=== PATIENT | female | born 1945 | race African-American/Black ===

== ENCOUNTER 2016-12-10 09:30 | Inpatient (IN) | payer OTHER, BC ==
[2016-11-28 11:22] VITALS: BMI 29.7
[2016-12-10 15:40] LABS: MCH 30.3 pg (25.7-33.7); MEAN PLT VOLUME 9.2 fl (7.5-11.1); PLATELET COUNT 218 K/MM3 (134-434); RDW 13.5 % (11.6-15.6); WHITE BLOOD COUNT 4.4 K/mm3 (4.0-10.0)
[2016-12-10 16:04] LABS: ALBUMIN 4.2 g/dl (3.4-5.0); BILIRUBIN,TOTAL 0.4 mg/dL (0.2-1.0); CALCIUM 10.1 mg/dL (8.5-10.1); COCKROFT - GAULT 47.1495; CREATININE 1.4 mg/dL (0.55-1.02); TOT PROT 7.1 g/dl (6.4-8.2)
[2016-12-10 16:25] LABS: INR 1.55 (0.82-1.09); PROTHROMBIN TIME (PATIENT) 17.2 SEC (9.98-11.88)
[2016-12-10 16:28] LABS: ACTIVATED PTT 37.3 SECONDS (26.9-34.4)
[2016-12-10] MEDS ORDERED: HEPARIN NA (PORCINE) 5,000 UNITS/ML 1ML VIAL IVPUSH PRN ×2 (17:19)
[2016-12-10] MEDS: HEPARIN INFUSION - 500 ML IVPB SCH (17:41)
[2016-12-10] MEDS: MIRTAZAPINE 15 MG TABLET (FP) PO SCH (21:06)
[2016-12-10] MEDS: ACETAMINOPHEN 325 MG TABLET (FP) PO PRN (21:08)
[2016-12-11 07:40] LABS: BASOPHIL 2.5 % (0-2.0); EOSINOPHIL 5.8 % (0-4.5); MCH 31.3 pg (25.7-33.7); MCHC 33.8 g/dl (32.0-36.0); MEAN CELL VOLUME 92.4 fl (80-96); NEUTROPHILS 39.6 % (42.8-82.8); PLATELET COUNT 189 K/MM3 (134-434); RDW 13.9 % (11.6-15.6); WHITE BLOOD COUNT 3.4 K/mm3 (4.0-10.0)
[2016-12-11 07:59] LABS: INR 1.39 (0.82-1.09); PROTHROMBIN TIME (PATIENT) 15.4 SEC (9.98-11.88)
--- NOTE | 2016-12-11 08:51 | HP ---
Admitting History and Physical - Primary Care Physician PCP: Mary York - Past Medical History Cardiovascular: Yes: HTN, Other (valve replacements on coumadin and ASA) ...: No Psych: Yes: Other (insomnia) Rheumatology: Yes: Gout - Past Surgical History Past Surgical History: Yes: Hysterectomy (COLTEN at 31 benign), Joint Replacement ( Bilateral hip 1998), Laminectomy (1984) - Advance Directives Advance Directives: Yes: Health Care Proxy - Smoking History Smoking history: Former smoker Have you smoked in the past 12 months: No Aproximately how many cigarettes per day: 0 - Alcohol/Substance Use Hx Alcohol Use: No <Sheila Mcdowell - Last Filed: 12/11/16 08:51> - Admission History of Present Illness: The patient is a 71 yo F with PMHx of AVR(metallic in 1995), HTN, Afib, Spinal stenosis, R knee osteoarthritis, Gout, Depression and COPD who is admitted electively for R total knee replacement which is scheduled tomorrow by Dr. Davison. Patient is currently on heparin drip and off Coumadin. Patients PSHx significant for partial hysterectomy and Laminectomy. At present, patient denies any chest pain or SOB. Denies any abdominal pain or urinary/bowel trouble. Meds reviewed Allergies: penicillin History Source: Patient Limitations to Obtaining History: No Limitations <Barbara Dumont - Last Filed: 12/11/16 10:39> Home Medications <Sheila Mcdowell - Last Filed: 12/11/16 08:51> <Barbara Dumont - Last Filed: 12/11/16 10:39> - Allergies Allergies/Adverse Reactions: Allergies Allergy/AdvReac Type Severity Reaction Status Date / Time Penicillins Allergy Severe ITCHING Verified 11/28/16 10:57 AND RASH - Home Medications Home Medications: Ambulatory Orders Aspirin [Aspirin EC] 81 mg PO DAILY #0 06/11/13 Furosemide [Lasix -] 40 mg PO DAILY 06/11/13 Nebivolol HCl [Bystolic] 10 mg PO DAILY #0 06/11/13 Warfarin Sodium 5 mg PO HS 06/11/13 Allopurinol [Zyloprim -] 100 mg PO DAILY 12/15/15 Cholecalciferol (Vitamin D3) [Vitamin D3] 1,000 mg PO DAILY 12/15/15 Mirtazapine [Remeron -] 15 mg PO HS 12/15/15 Multivit with Iron-Minerals [Compete] 1 each PO DAILY 12/15/15 Spironolactone [Aldactone] 25 mg PO DAILY 12/15/15 Ferrous Sulfate [Feosol] 325 mg PO BID 11/28/16 Tramadol HCl [Ultram] 50 mg PO BID PRN 11/28/16 Family Disease History - Family Disease History Family History: Unremarkable <Barbara Dumont - Last Filed: 12/11/16 10:39> Review of Systems Findings/Remarks: See HPI <Barbara Dumont - Last Filed: 12/11/16 10:39> Physical Examination Vital Signs: Vital Signs Temperature 97.5 F L 12/11/16 06:10 Pulse Rate 60 12/11/16 06:10 Respiratory Rate 20 12/11/16 06:10 Blood Pressure 137/70 12/11/16 06:10 O2 Sat by Pulse Oximetry (%) 98 12/10/16 20:31 Labs: CBC, BMP 12/11/16 05:35 <Sheila Mcdowell - Last Filed: 12/11/16 08:51> Vital Signs: Vital Signs Temperature 97.5 F L 12/11/16 07:35 Pulse Rate 56 L 12/11/16 07:35 Respiratory Rate 18 12/11/16 07:35 Blood Pressure 130/64 12/11/16 07:35 O2 Sat by Pulse Oximetry (%) 98 12/10/16 20:31 Constitutional: Yes: No Distress Eyes: Yes: Conjunctiva Clear Neck: Yes: Supple, Other (No Carotid bruit.) Cardiovascular: Yes: Pulse Irregular Respiratory: Yes: CTA Bilaterally Gastrointestinal: Yes: Soft Edema: No Neurological: Yes: Alert Labs: CBC, BMP 12/11/16 05:35 12/11/16 05:35 <Barbara Dumont - Last Filed: 12/11/16 10:39> Imaging - Results EKG: Report Reviewed <Barbara Dumont - Last Filed: 12/11/16 10:39> Problem List - Problems (1) Osteoarthritis of right knee Code(s): M17.11 - UNILATERAL PRIMARY OSTEOARTHRITIS, RIGHT KNEE (2) S/P aortic valve replacement with metallic valve Code(s): Z95.4 - PRESENCE OF OTHER HEART-VALVE REPLACEMENT (3) Atrial fibrillation Code(s): I48.91 - UNSPECIFIED ATRIAL FIBRILLATION (4) HTN (hypertension) Code(s): I10 - ESSENTIAL (PRIMARY) HYPERTENSION (5) COPD (chronic obstructive pulmonary disease) Code(s): J44.9 - CHRONIC OBSTRUCTIVE PULMONARY DISEASE, UNSPECIFIED <Barbara Dumont - Last Filed: 12/11/16 10:39> Assessment/Plan Clinically stable. Meds reviewed. Scheduled for OR tomorrow. Cardiology to follow. Will check UC and CXR. Discussed with Dr. York-- per Dr. Adan's conversation with anesthesiologist last week Dr. Carter--INR to be checked midnight tonight, if less than 1.4, heparin drip to be stopped at 1 AM. If INR is more than 1.4, heparin drip to continue and procedure needs to be postponed, nurse made aware Will follow. Documentation prepared by Barbara Dumont, acting as a medical affairs specialist for Sheila Mcdowell MD. <Barbara Dumont - Last Filed: 12/11/16 10:39>
--- NOTE | 2016-12-11 09:40 | PN ---
Progress Note (short form) - Note Progress Note: Ortho Pt seen and examined- for right tkr tomorrow PE- + swelling, + ttp, dec rom calf soft, nt, nvi a/p OR tomorrow for right tkr NPO after midnight Hold heparin after 4 am tomorrow All questions answered d/w Dr. Davison
[2016-12-11 09:49] LABS: ALBUMIN 3.5 g/dl (3.4-5.0); COCKROFT - GAULT 55.675; CREATININE 1.2 mg/dL (0.55-1.02)
[2016-12-11 09:51] LABS: BILIRUBIN,TOTAL 0.4 mg/dL (0.2-1.0); TOT PROT 6.2 g/dl (6.4-8.2)
[2016-12-11] MEDS ORDERED: ASPIRIN COATED 81 MG TABLET.EC PO SCH (10:00)
--- NOTE | 2016-12-11 10:19 | PN ---
Progress Note (short form) - Note Progress Note: per my conversation with anesthesiologist last week Dr. Carter--INR to be checked midnight tonight, if less than 1.4, heparin drip to be stopped at 1 AM. If INR is more than 1.4, heparin drip to continue and procedure needs to be postponed, nurse made aware
[2016-12-11] MEDS ORDERED: PT OWN MED DRAWER 7, Y5N ONE (10:41)
[2016-12-11] MEDS: ALLOPURINOL 100 MG TABLET (FP) PO SCH (10:43)
[2016-12-11] MEDS: NEBIVOLOL 10 MG TABLET (FP) PO SCH (10:43)
[2016-12-11] MEDS: FUROSEMIDE 40 MG TABLET (FP) PO SCH (10:43)
[2016-12-11] MEDS: SPIRONOLACTONE 25 MG TABLET (FP) PO SCH (10:43)
[2016-12-11] MEDS: ASPIRIN COATED 81 MG TABLET.EC PO SCH (10:43)
[2016-12-11] MEDS: HEPARIN INFUSION - 500 ML IVPB SCH ×2 (12:19→20:20)
[2016-12-11 12:37] LABS: URINE APPEARANCE CLEAR; URINE BILIRUBIN NEGATIVE (NEGATIVE); URINE BLOOD NEGATIVE (NEGATIVE); URINE COLOR STRAW; URINE GLUCOSE (UA) NEGATIVE (NEGATIVE); URINE KETONE NEGATIVE (NEGATIVE); URINE NITRITE NEGATIVE (NEGATIVE); URINE PROTEIN NEGATIVE (NEGATIVE); URINE UROBILINOGEN NEGATIVE E.U./dl (0.2-1.0)
[2016-12-11 13:02] LABS: URINE LEUK ESTERASE TRACE (NEGATIVE)
--- NOTE | 2016-12-11 13:22 | CON.CARD ---
Consult Consult Specialty:: Cardiology Referred by:: Sheila Mcdowell MD Reason for Consultation:: Pre-operative cardiovascular evaluation - History of Present Illness Chief Complaint: Right knee pain History of Present Illness: The patient is a 71 yo F with PMHx of AVR, MVR (metallic in 1995), HTN, permanent Afib sss s/p PPM, diastolic dysfunction, cerebrovascular disease, spinal stenosis, R knee osteoarthritis, Gout, Depression and COPD admitted electively for R total knee replacement which is scheduled tomorrow by Dr. Davison. Patient is currently on heparin drip and off Coumadin, INR subtherapeutic. She denies chest pain, dyspnea, near or true syncope, palpitations, orthopnea, PND or LE edema. Patients PSHx significant for partial hysterectomy and Laminectomy. Meds reviewed Allergies: penicillin - History Source History Provided By: Patient Limitations to Obtaining History: No Limitations - Past Medical History Cardio/Vascular: Yes: AFIB, HTN, Other (valve replacements on coumadin and ASA) ...: No Psych: Yes: Other (insomnia) Rheumatology: Yes: Gout - Past Surgical History Past Surgical History: Yes: Hysterectomy (COLTEN at 31 benign), Joint Replacement ( Bilateral hip 1998), Laminectomy (1984), Valve Replacement - Alcohol/Substance Use Hx Alcohol Use: No - Smoking History Smoking history: Former smoker Have you smoked in the past 12 months: No Aproximately how many cigarettes per day: 0 Home Medications - Allergies Allergies/Adverse Reactions: Allergies Allergy/AdvReac Type Severity Reaction Status Date / Time Penicillins Allergy Severe ITCHING Verified 11/28/16 10:57 AND RASH - Home Medications Home Medications: Ambulatory Orders Aspirin [Aspirin EC] 81 mg PO DAILY #0 06/11/13 Furosemide [Lasix -] 40 mg PO DAILY 06/11/13 Nebivolol HCl [Bystolic] 10 mg PO DAILY #0 06/11/13 Warfarin Sodium 5 mg PO HS 06/11/13 Allopurinol [Zyloprim -] 100 mg PO DAILY 12/15/15 Cholecalciferol (Vitamin D3) [Vitamin D3] 1,000 mg PO DAILY 12/15/15 Mirtazapine [Remeron -] 15 mg PO HS 12/15/15 Multivit with Iron-Minerals [Compete] 1 each PO DAILY 12/15/15 Spironolactone [Aldactone] 25 mg PO DAILY 12/15/15 Ferrous Sulfate [Feosol] 325 mg PO BID 11/28/16 Tramadol HCl [Ultram] 50 mg PO BID PRN 11/28/16 Review of Systems - Review of Systems Musculoskeletal: reports: Joint Pain (Right knee pain) Vital Signs: Vital Signs Temperature 97.5 F L 12/11/16 07:35 Pulse Rate 56 L 12/11/16 07:35 Respiratory Rate 18 12/11/16 07:35 Blood Pressure 130/64 12/11/16 07:35 O2 Sat by Pulse Oximetry (%) 98 12/11/16 09:00 Constitutional: Yes: No Distress, Calm Neck: Yes: Supple Respiratory: Yes: Regular, CTA Bilaterally Gastrointestinal: Yes: Normal Bowel Sounds, Soft Cardiovascular: Yes: Regular Rate and Rhythm, Other (Camas mechanical valve sounds) JVD: No Carotid Bruit: No Heart Sounds: Yes: S1, S2 Murmur: Yes: Systolic Murmur, Grade 1 Edema: No - Other Data Labs, Other Data: CBC, BMP 12/11/16 05:35 12/11/16 05:35 INR, PTT INR 1.39 (0.82-1.09) H 12/11/16 05:35 Imaging - Results Chest X-ray: Pending Problem List - Problems (1) Atrial fibrillation Code(s): I48.91 - UNSPECIFIED ATRIAL FIBRILLATION Qualifiers: Atrial fibrillation type: permanent Qualified Code(s): I48.2 - Chronic atrial fibrillation (2) HTN (hypertension) Code(s): I10 - ESSENTIAL (PRIMARY) HYPERTENSION Qualifiers: Hypertension type: essential hypertension Qualified Code(s): I10 - Essential (primary) hypertension (3) Osteoarthritis of right knee Code(s): M17.11 - UNILATERAL PRIMARY OSTEOARTHRITIS, RIGHT KNEE Qualifiers: Osteoarthritis type: primary Qualified Code(s): M17.11 - Unilateral primary osteoarthritis, right knee (4) S/P aortic valve replacement with metallic valve Code(s): Z95.4 - PRESENCE OF OTHER HEART-VALVE REPLACEMENT (5) Pre-operative cardiovascular examination Code(s): Z01.810 - ENCOUNTER FOR PREPROCEDURAL CARDIOVASCULAR EXAMINATION (6) Diastolic dysfunction without heart failure Code(s): I51.9 - HEART DISEASE, UNSPECIFIED (7) Cerebrovascular disease Code(s): I67.9 - CEREBROVASCULAR DISEASE, UNSPECIFIED (8) S/P mitral valve replacement with metallic valve Code(s): Z95.4 - PRESENCE OF OTHER HEART-VALVE REPLACEMENT (9) Rheumatic heart disease Code(s): I09.9 - RHEUMATIC HEART DISEASE, UNSPECIFIED (10) Cardiac pacemaker in situ Code(s): Z95.0 - PRESENCE OF CARDIAC PACEMAKER (11) Chronic kidney disease (CKD) Code(s): N18.9 - CHRONIC KIDNEY DISEASE, UNSPECIFIED Qualifiers: Chronic kidney disease stage: stage 3 (moderate) Qualified Code(s): N18.3 - Chronic kidney disease, stage 3 (moderate) Assessment/Plan 11/16/2016 Echo: Normal LV size and fxn, mild ALICIA, [facility] [employer] mech AVR, mild-mod TR RVSP 51 mmHg 11/21/2016 Adenosine MIBI: No ischemia, LVEF 77% 1. Pre-operative cardiovascular evaluation prior to right TKR 2. RHD s/p Mech MVR, AVR with subtherapeutic INR 3. Permanent afib sss s/p PPM 4. Diastolic dysfunction 5. Hyperlipidemia 6. Cerebrovascular disease with h/o TIA P:1. Resume ASA, heparin->coumadin per INR 3.0-3.5 as soon as post-op hemostasis has been achieved 2. Continue Bystolic 10 qd, Aldactone 25 qd, Cozaar 100 qd, hold Lasix 40 qd pre -op 3. Thank you for consultative opportunity
[2016-12-11 13:46] LABS: URINE WBC 2 /hpf (3-5)
[2016-12-11] MEDS: ACETAMINOPHEN 325 MG TABLET (FP) PO PRN (14:20)
[2016-12-11] MEDS: LOSARTAN POTASSIUM 50 MG TABLET (FP) PO SCH (15:04)
[2016-12-11] MEDS: MIRTAZAPINE 15 MG TABLET (FP) PO SCH (21:17)
[2016-12-12 00:36] LABS: INR 1.26 (0.82-1.09); PROTHROMBIN TIME (PATIENT) 13.9 SEC (9.98-11.88)
[2016-12-12 07:09] LABS: MCHC 33.2 g/dl (32.0-36.0); MEAN CELL VOLUME 93.4 fl (80-96); MEAN PLT VOLUME 8.9 fl (7.5-11.1); PLATELET COUNT 230 K/MM3 (134-434); RDW 13.9 % (11.6-15.6); WHITE BLOOD COUNT 3.7 K/mm3 (4.0-10.0)
[2016-12-12] MEDS: SPIRONOLACTONE 25 MG TABLET (FP) PO SCH (09:36)
[2016-12-12] MEDS: NEBIVOLOL 10 MG TABLET (FP) PO SCH (09:36)
[2016-12-12] MEDS: ASPIRIN COATED 81 MG TABLET.EC PO SCH (09:37)
[2016-12-12] MEDS: ALLOPURINOL 100 MG TABLET (FP) PO SCH (09:37)
[2016-12-12] MEDS: FUROSEMIDE 40 MG TABLET (FP) PO SCH (09:37)
[2016-12-12] MEDS: LOSARTAN POTASSIUM 50 MG TABLET (FP) PO SCH (09:37)
[2016-12-12] MEDS ORDERED: ROPIVACAINE HCL 0.5% 30ML VIAL ONE (09:53)
[2016-12-12] MEDS ORDERED: DEXAMETHASONE SOD PHOSPHATE/PF 10 MG/ML SDV ONE (09:53)
[2016-12-12] MEDS ORDERED: SODIUM CHLORIDE 0.9% P/F 10 ML VIAL IJ ONE (09:56)
[2016-12-12] MEDS ORDERED: MIDAZOLAM HCL 2 MG/2 ML SINGLE DOSE VIAL ONE ×2 (09:56)
[2016-12-12] MEDS ORDERED: ceFAZolin SODIUM 1 GM VIAL ONE ×2 (10:56→11:12)
[2016-12-12] MEDS ORDERED: ceFAZolin SODIUM 1 GM VIAL IVPB ONE ×2 (10:58→12:25)
[2016-12-12] MEDS ORDERED: TRANEXAMIC ACID 1000 MG/10 ML VIAL IVPB ONE ×2 (11:10→12:25)
[2016-12-12] MEDS ORDERED: TRANEXAMIC ACID 1000 MG/10 ML VIAL ONE ×2 (11:11→11:24)
[2016-12-12] MEDS ORDERED: ONDANSETRON 4 MG/2 ML VIAL IVPUSH PRN ×2 (11:22→13:01)
[2016-12-12] MEDS ORDERED: LACTATED RINGERS SOLUTION 1,000 ML IV SCH (11:30)
[2016-12-12] MEDS ORDERED: VANCOMYCIN 1,000 MG VIAL (RESTRICTED TO ID ONLY) ONE (11:40)
[2016-12-12] MEDS ORDERED: VANCOMYCIN 1,000 MG VIAL (RESTRICTED TO ID ONLY) IVPB ONE (12:00)
--- NOTE | 2016-12-12 12:36 | OP ---
Operative Note - Note: Operative Date: 12/12/16 ([facility]) Pre-Operative Diagnosis: right knee djd Operation: right tkr Post-Operative Diagnosis: Same as Pre-op Surgeon: Everett Davison Padded Box Sewer: Kervin Chu Anesthesiologist/HUNTER GUIDE: Tammie Mujica Anesthesia: Spinal, Local Specimens Removed: bone fragments Estimated Blood Loss (mls): 50 (tourniquet) Operative Report Dictated: Yes
[2016-12-12] MEDS ORDERED: HEPARIN NA (PORCINE) 5,000 UNITS/ML 1ML VIAL IVPUSH PRN ×6 (13:01→19:00)
--- NOTE | 2016-12-12 13:21 | PN ---
Progress Note, Physician Chief Complaint: Pt examined by me in Recovery room-- s/p Right TKR She feels fine No distress - Current Medication List Current Medications: Active Medications Acetaminophen (Tylenol -) 650 mg PO Q6H PRN PRN Reason: FEVER OR PAIN Allopurinol (Zyloprim -) 100 mg PO DAILY [facility] Aspirin (Ecotrin -) 81 mg PO DAILY [facility] Fentanyl (Sublimaze Injection -) 25 mcg IVPUSH [id number] PRN PRN Reason: PAIN Stop: 12/15/16 11:23 Furosemide (Lasix -) 40 mg PO DAILY [facility] Heparin Sodium (Porcine) (Heparin -) 1,000 unit IVPUSH PRN PRN PRN Reason: Heparin Heparin Sodium (Porcine) (Heparin -) 5,000 unit IVPUSH PRN PRN PRN Reason: Heparin Cefazolin Sodium 2 gm/ (Dextrose) 50 mls @ 200 mls/hr IVPB Q8H-IV MELISSA Stop: 12/13/16 02:14 Heparin Sodium/Dextrose (Heparin Infusion -) 500 mls @ 20 mls/hr IVPB TITR MELISSA ; 1,000 UNITS/HR PRN Reason: Protocol Lactated Ringer's (Lactated Ringers Solution) 1,000 mls @ 75 mls/hr IV ASDIR MELISSA Losartan Potassium (Cozaar -) 50 mg PO DAILY MELISSA Mirtazapine (Remeron -) 15 mg PO HS MELISSA Nebivolol (Bystolic -) 10 mg PO DAILY MELISSA Ondansetron HCl (Zofran Injection) 4 mg IVPUSH Q6H PRN PRN Reason: NAUSEA AND/OR VOMITING Stop: 12/12/16 17:23 Pantoprazole Sodium (Protonix -) 40 mg PO DAILY [facility] Spironolactone (Aldactone -) 25 mg PO DAILY [facility] - Objective Vital Signs: Vital Signs Temperature 98.3 F 12/12/16 06:13 Pulse Rate 60 12/12/16 06:13 Respiratory Rate 21 12/12/16 06:13 Blood Pressure 129/60 12/12/16 06:13 O2 Sat by Pulse Oximetry (%) 98 12/11/16 21:00 Constitutional: Yes: No Distress, Calm Cardiovascular: Yes: Regular Rate and Rhythm, Murmur Respiratory: Yes: CTA Bilaterally Gastrointestinal: Yes: Normal Bowel Sounds, Soft. No: Distention, Tenderness Extremities: Yes: Other (right leg cast) Edema: No Labs: CBC, BMP 12/12/16 06:05 12/11/16 05:35 INR, PTT INR 1.26 (0.82-1.09) H 12/12/16 00:01 Problem List - Problems (1) COPD (chronic obstructive pulmonary disease) Code(s): J44.9 - CHRONIC OBSTRUCTIVE PULMONARY DISEASE, UNSPECIFIED Qualifiers : COPD type: unspecified COPD Qualified Code(s): J44.9 - Chronic obstructive pulmonary disease, unspecified (2) Diastolic dysfunction without heart failure Code(s): I51.9 - HEART DISEASE, UNSPECIFIED (3) HTN (hypertension) Code(s): I10 - ESSENTIAL (PRIMARY) HYPERTENSION Qualifiers: Hypertension type: essential hypertension Qualified Code(s): I10 - Essential (primary) hypertension (4) Osteoarthritis of right knee Code(s): M17.11 - UNILATERAL PRIMARY OSTEOARTHRITIS, RIGHT KNEE Qualifiers: Osteoarthritis type: primary Qualified Code(s): M17.11 - Unilateral primary osteoarthritis, right knee (5) S/P aortic valve replacement with metallic valve Code(s): Z95.4 - PRESENCE OF OTHER HEART-VALVE REPLACEMENT (6) Total knee replacement status Code(s): Z96.659 - PRESENCE OF UNSPECIFIED ARTIFICIAL KNEE JOINT Qualifiers: Laterality: right Qualified Code(s): Z96.651 - Presence of right artificial knee joint Assessment/Plan PLAN As per Ortho team, ok to start Heparin infusion and will also start Coumadin tonight check CBC in AM. Monitor INR pain control incentive spirometry Cefazolin post surgery continue with meds DVT prophylaxis-- Heparin +Coumadin may need to consider rehab on discharge - pt lives alone
[2016-12-12] MEDS: LACTATED RINGERS SOLUTION 1,000 ML IV SCH (14:00)
[2016-12-12] MEDS: HYDROmorphone HCL CARPU-JECT 1 MG/1 ML DISP.SYRIN IVPUSH PRN ×2 (16:54→21:08)
[2016-12-12] MEDS ORDERED: CEFAZOLIN 2 GM in DEXTROSE 5%-WATER - 50 ML IVPB SCH (18:00)
[2016-12-12] MEDS: oxyCODONE HCL 5 MG TABLET PO PRN (18:08)
[2016-12-12] MEDS: CEFAZOLIN 2 GM/D5W 50 ML IVPB SCH (18:08)
[2016-12-12] MEDS: WARFARIN NA 5 MG TABLET (UD) PO SCH (18:08)
[2016-12-12] MEDS: HEPARIN INFUSION - 500 ML IVPB SCH ×2 (18:52→21:09)
[2016-12-12] MEDS ORDERED: HEPARIN INFUSION - 500 ML IVPB SCH (19:00)
[2016-12-12] MEDS: MIRTAZAPINE 15 MG TABLET (FP) PO SCH (21:08)
[2016-12-13] MEDS: HYDROmorphone HCL CARPU-JECT 1 MG/1 ML DISP.SYRIN IVPUSH PRN ×2 (01:19→05:44)
[2016-12-13] MEDS: LACTATED RINGERS SOLUTION 1,000 ML IV SCH (02:49)
[2016-12-13] MEDS: CEFAZOLIN 2 GM/D5W 50 ML IVPB SCH (03:07)
[2016-12-13] MEDS: HEPARIN INFUSION - 500 ML IVPB SCH ×2 (03:19→18:22)
[2016-12-13 07:27] LABS: MCH 31.3 pg (25.7-33.7); MCHC 33.7 g/dl (32.0-36.0); MEAN CELL VOLUME 92.7 fl (80-96); MEAN PLT VOLUME 9.1 fl (7.5-11.1); PLATELET COUNT 196 K/MM3 (134-434); RDW 13.6 % (11.6-15.6); WHITE BLOOD COUNT 9.8 K/mm3 (4.0-10.0)
[2016-12-13 07:35] LABS: CALCIUM 9.5 mg/dL (8.5-10.1)
[2016-12-13 07:37] LABS: COCKROFT - GAULT 66.1045
[2016-12-13 07:57] LABS: INR 1.2 (0.82-1.09); PROTHROMBIN TIME (PATIENT) 13.2 SEC (9.98-11.88)
--- NOTE | 2016-12-13 08:44 | PN ---
Progress Note (short form) - Note Progress Note: Anesthesia POD#1 S/P Right Total Knee Replacement under spinal anesthesia and Adductor canal block,tibial nerve block Patient did well during & after the procedure. pain started last evening. Taking narcotics PO and IV. Not well controlled. No N/V,VSS. A/P i would add iv tylenol for pain. Tammie Mujica MD.
[2016-12-13] MEDS ORDERED: ACETAMINOPHEN 1000 MG/100 ML VIAL (NON FORMULARY) IVPB PRN (08:45)
[2016-12-13] MEDS ORDERED: PT OWN MED DRAWER 7, Y5N ONE (09:01)
[2016-12-13] MEDS: oxyCODONE HCL 5 MG TABLET PO PRN ×3 (09:05→21:31)
[2016-12-13] MEDS: ASPIRIN COATED 81 MG TABLET.EC PO SCH (09:06)
[2016-12-13] MEDS: ALLOPURINOL 100 MG TABLET (FP) PO SCH (09:06)
[2016-12-13] MEDS: SPIRONOLACTONE 25 MG TABLET (FP) PO SCH (09:06)
[2016-12-13] MEDS: ACETAMINOPHEN 325 MG TABLET (FP) PO PRN ×3 (09:06→21:31)
[2016-12-13] MEDS: FUROSEMIDE 40 MG TABLET (FP) PO SCH (09:07)
[2016-12-13] MEDS: PANTOPRAZOLE 40 MG TABLET (FP) PO SCH (09:07)
[2016-12-13] MEDS: NEBIVOLOL 10 MG TABLET (FP) PO SCH (09:07)
[2016-12-13] MEDS ORDERED: HYDROmorphone HCL CARPU-JECT 1 MG/1 ML DISP.SYRIN IVPB PRN (09:16)
--- NOTE | 2016-12-13 09:19 | PN ---
Progress Note, Physician Chief Complaint: s/p Rt TKR POD #1 Has pain examined pt while doing Physical therapy has a productive cough-- nasal congestion no SOB - Current Medication List Current Medications: Active Medications Acetaminophen (Tylenol -) 650 mg PO Q6H PRN PRN Reason: FEVER OR PAIN Acetaminophen (Ofirmev Injection -) 1,000 mg IVPB Q6H PRN PRN Reason: FEVER OR PAIN Stop: 12/14/16 02:46 Allopurinol (Zyloprim -) 100 mg PO DAILY [facility] Last Admin: 12/13/16 09:06 Dose: 100 mg Aspirin (Ecotrin -) 81 mg PO DAILY [facility] Last Admin: 12/13/16 09:06 Dose: 81 mg Furosemide (Lasix -) 40 mg PO DAILY [facility] Last Admin: 12/13/16 09:07 Dose: 40 mg Heparin Sodium (Porcine) (Heparin -) 5,000 unit IVPUSH PRN PRN Heparin Sodium (Porcine) (Heparin -) 1,000 unit IVPUSH PRN PRN Hydromorphone HCl (Dilaudid Injection -) 1 mg IVPB Q4H PRN PRN Reason: PAIN LEVEL 6-10 Lactated Ringer's (Lactated Ringers Solution) 1,000 mls @ 75 mls/hr IV ASDIR [facility] Last Admin: 12/13/16 02:49 Dose: 75 mls/hr Heparin Sodium/Dextrose (Heparin Infusion -) 500 mls @ 17 mls/hr IVPB TITR MELISSA ; 850 UNITS/HR PRN Reason: Protocol Last Admin: 12/13/16 03:19 Dose: 17 mls/hr Losartan Potassium (Cozaar -) 50 mg PO DAILY [facility] Last Admin: 12/13/16 09:06 Dose: 50 mg Mirtazapine (Remeron -) 15 mg PO HS [facility] Last Admin: 12/12/16 21:08 Dose: 15 mg Nebivolol (Bystolic -) 10 mg PO DAILY [facility] Last Admin: 12/13/16 09:07 Dose: 10 mg Oxycodone HCl (Roxicodone -) 5 mg PO Q6H PRN PRN Reason: PAIN LEVEL 6-10 Last Admin: 12/13/16 09:05 Dose: 5 mg Pantoprazole Sodium (Protonix -) 40 mg PO DAILY [facility] Last Admin: 12/13/16 09:07 Dose: 40 mg Spironolactone (Aldactone -) 25 mg PO DAILY [facility] Last Admin: 12/13/16 09:06 Dose: 25 mg Warfarin Sodium (Coumadin -) 5 mg PO DAILY@1800 [facility] Last Admin: 12/12/16 18:08 Dose: 5 mg - Objective Vital Signs: Vital Signs Temperature 99.0 F 12/13/16 07:40 Pulse Rate 100 H 12/13/16 07:40 Respiratory Rate 18 12/13/16 07:40 Blood Pressure 150/90 12/13/16 07:40 O2 Sat by Pulse Oximetry (%) 96 12/12/16 20:49 Constitutional: Yes: No Distress Cardiovascular: Yes: Pulse Irregular, Murmur Respiratory: Yes: CTA Bilaterally Gastrointestinal: Yes: Normal Bowel Sounds, Soft Extremities: Yes: Other (rt leg- cast) Edema: No Labs: CBC, BMP 12/13/16 05:35 12/13/16 05:35 INR, PTT INR 1.20 (0.82-1.09) H 12/13/16 05:35 Problem List - Problems (1) COPD (chronic obstructive pulmonary disease) Code(s): J44.9 - CHRONIC OBSTRUCTIVE PULMONARY DISEASE, UNSPECIFIED Qualifiers : Qualified Code(s): J44.9 - Chronic obstructive pulmonary disease, unspecified (2) Diastolic dysfunction without heart failure Code(s): I51.9 - HEART DISEASE, UNSPECIFIED (3) HTN (hypertension) Code(s): I10 - ESSENTIAL (PRIMARY) HYPERTENSION Qualifiers: Qualified Code(s): I10 - Essential (primary) hypertension (4) Osteoarthritis of right knee Code(s): M17.11 - UNILATERAL PRIMARY OSTEOARTHRITIS, RIGHT KNEE Qualifiers: Qualified Code(s): M17.11 - Unilateral primary osteoarthritis, right knee (5) S/P aortic valve replacement with metallic valve Code(s): Z95.4 - PRESENCE OF OTHER HEART-VALVE REPLACEMENT (6) Total knee replacement status Code(s): Z96.659 - PRESENCE OF UNSPECIFIED ARTIFICIAL KNEE JOINT Qualifiers: Qualified Code(s): Z96.651 - Presence of right artificial knee joint Assessment/Plan PLAN continue Heparin + Coumadin chest is clear, possibly due to post nasal drip-- may give Nasal sprays pain control incentive spirometry Cefazolin post surgery continue with meds DVT prophylaxis-- Heparin +Coumadin may need to consider rehab on discharge - pt lives alone
[2016-12-13] MEDS ORDERED: LOSARTAN POTASSIUM 50 MG TABLET (FP) PO SCH (10:00)
[2016-12-13] MEDS ORDERED: ACETAMINOPHEN 1000 MG/100 ML VIAL (NON FORMULARY) IVPB ONE (10:00)
[2016-12-13] MEDS ORDERED: PANTOPRAZOLE 40 MG TABLET (FP) PO SCH (10:00)
--- NOTE | 2016-12-13 12:56 | SPEC ---
DATE OF OPERATION: 12/12/2016 OPERATION: Right total knee replacement. PREOPERATIVE DIAGNOSIS: Degenerative joint disease of the right knee. POSTOPERATIVE DIAGNOSIS: Degenerative joint disease of the right knee. SURGEON: Ajit Davison M.D. PAGEANT DIRECTOR: Michelle Rowland ANESTHESIA: Spinal and regional. CLOSURE: Coram implants (Triathlon knee system) including No. 5 femur, No. 4 tibia, 9 mm polyethylene, No. 32 patella, No. 1 Vicryl to fascia, 0 and 2-0 subcutaneous, 3-0 Monocryl subcuticular, with skin glue for skin. ESTIMATED BLOOD LOSS: Negligible. TOTAL TOURNIQUET TIME: Approximately 75 minutes. COMPLICATIONS: None. CONDITION: To recovery room in stable condition. PROCEDURE: Patient was taken to the operating room. Spinal anesthesia and femoral block were administered by the anesthesiologist. IV Kefzol and TXA were administered prophylactically prior to the case. Well-padded pneumatic tourniquet was placed on the right proximal thigh. The right lower extremity was prepped and draped in the usual sterile fashion. A 12 to 15-cm midline longitudinal incision centered over the patella was incised. Hemostasis was achieved with Bovie cautery and sharp dissection was carried down to the level of the fascia. A medial parapatellar arthrotomy was then made leaving tissue on the patella for later closure. The patella was inverted and the knee was flexed up. Fat pad was excised. Subperiosteal dissection was done on the anterior medial proximal tibia until the knee was able to be brought forward. This was facilitated by taking the ACL and the anterior horn of the lateral meniscus. Using the external tibial alignment, a jig was then clamped to the tibia and malleted into place. A stylus was used to take 2 mm off the lower side. Pins were placed and alignment jig was removed. The alignment was confirmed by using a drop lindsay and again pinned with an X pin as well. The saw was used to osteotomize the proximal tibia. The bone and meniscal remnants were all removed. The cutting jib was removed, leaving the pins for now. The proximal femur was opened using a step drill just above the notch. An intramedullary alignment with 6 degrees of valgus was then malleted into place. Using anterior referencing jigs and 7 degrees of valgus and the appropriate 3 degrees of external rotation, the distal femur was cut in the anterior posterior distal chamber with box cuts. The femur was sized and the appropriate jig was used to cut the bone. The soft tissue was confirmed to be balanced in both full extension and flexion by using the gapper. A trial femoral reduction with appropriate femoral-sized component achieved good line to line fit. The remnants of the PCL and posterior menisci were already removed and any osteophytes posteriorly were debrided with an osteotome and a rongeur. The appropriate-sized tibial base plate with a 9 mm insert was placed into the knee and was allowed to find itself." It was then pinned into place and confirmation was confirmed to having appropriate alignment with a drop lindsay and a transverse pin in the femur. The knee was taken through a range of motion and found to have good stability throughout. The patella was then calipered for thickness and osteotomized down to the appropriate level. An appropriate lollypop was used to drill lug holes in the patella. Trial reduction with a medializing patella button was performed and the knee went through a full range of motion, full extension, full tracking with no undue tightness, good stability and excellent tracking of the patella. The trial components were removed. The keel was malleted into the tibial base plate. The knee was then post-antibiotic irrigated. Using modern generation techniques and antibiotics cement, the real components were then malleted into position and pressurized with the knee in extension with a trial polyethylene. The knee was thoroughly inspected to remove all excess cement and then post-antibiotic irrigated. The real polyethylene component was then clipped into place. Range of motion, stability, and tracking were described earlier. Medial parapatellar arthrotomy was then closed using No. 1 Vicryl interrupted suture. After closure, the knee was taken through a range of motion and found to have good stability of the repair and excellent tracking of the patella. Subcutaneous was closed with 0 and 2-0 and 3-0 Monocryl subcuticular for the skin, skin glue was placed on the knee. An Aquacel dressing was then applied, as well as a Pablo dressing. Tourniquet was deflated. Total tourniquet time was approximately 75 minutes. There were no complications. At the end of the case another gram of TXA was administered as well. Patient was awakened from anesthesia, and transferred in stable condition. X-rays revealed excellent position of the components. AJIT DAVISON M.D. [id number]
--- NOTE | 2016-12-13 13:08 | PN ---
Progress Note, Physician History of Present Illness: POD#1 right TKR, pain adequately controlled. - Current Medication List Current Medications: Active Medications Acetaminophen (Tylenol -) 650 mg PO Q6H PRN PRN Reason: FEVER OR PAIN Allopurinol (Zyloprim -) 100 mg PO DAILY [facility] Last Admin: 12/13/16 09:06 Dose: 100 mg Aspirin (Ecotrin -) 81 mg PO DAILY [facility] Last Admin: 12/13/16 09:06 Dose: 81 mg Fluticasone Propionate (Flonase -) 2 spray NS DAILY [facility] Furosemide (Lasix -) 40 mg PO DAILY [facility] Last Admin: 12/13/16 09:07 Dose: 40 mg Heparin Sodium (Porcine) (Heparin -) 5,000 unit IVPUSH PRN PRN Heparin Sodium (Porcine) (Heparin -) 1,000 unit IVPUSH PRN PRN Hydromorphone HCl (Dilaudid Injection -) 1 mg IVPB Q4H PRN PRN Reason: PAIN LEVEL 6-10 Lactated Ringer's (Lactated Ringers Solution) 1,000 mls @ 75 mls/hr IV ASDIR [facility] Last Admin: 12/13/16 02:49 Dose: 75 mls/hr Heparin Sodium/Dextrose (Heparin Infusion -) 500 mls @ 17 mls/hr IVPB TITR MELISSA ; 850 UNITS/HR PRN Reason: Protocol Last Admin: 12/13/16 03:19 Dose: 17 mls/hr Losartan Potassium (Cozaar -) 50 mg PO DAILY [facility] Last Admin: 12/13/16 09:06 Dose: 50 mg Mirtazapine (Remeron -) 15 mg PO HS [facility] Last Admin: 12/12/16 21:08 Dose: 15 mg Nebivolol (Bystolic -) 10 mg PO DAILY [facility] Last Admin: 12/13/16 09:07 Dose: 10 mg Oxycodone HCl (Roxicodone -) 5 mg PO Q6H PRN PRN Reason: PAIN LEVEL 6-10 Last Admin: 12/13/16 09:05 Dose: 5 mg Pantoprazole Sodium (Protonix -) 40 mg PO DAILY [facility] Last Admin: 12/13/16 09:07 Dose: 40 mg Spironolactone (Aldactone -) 25 mg PO DAILY [facility] Last Admin: 12/13/16 09:06 Dose: 25 mg Warfarin Sodium (Coumadin -) 5 mg PO DAILY@1800 [facility] Last Admin: 12/12/16 18:08 Dose: 5 mg - Objective Vital Signs: Vital Signs Temperature 99.0 F 12/13/16 07:40 Pulse Rate 100 H 12/13/16 07:40 Respiratory Rate 18 12/13/16 07:40 Blood Pressure 150/90 12/13/16 07:40 O2 Sat by Pulse Oximetry (%) 97 12/13/16 09:00 Constitutional: Yes: No Distress, Calm Neck: Yes: Supple Cardiovascular: Yes: Regular Rate and Rhythm, Murmur, Other ([place] mechanical valve sounds) Respiratory: Yes: Regular, Diminished, On Nasal O2 Gastrointestinal: Yes: Normal Bowel Sounds, Soft Edema: No Labs: CBC, BMP 12/13/16 05:35 12/13/16 05:35 INR, PTT INR 1.20 (0.82-1.09) H 12/13/16 05:35 Problem List - Problems (1) Atrial fibrillation Code(s): I48.91 - UNSPECIFIED ATRIAL FIBRILLATION Qualifiers: Qualified Code(s): I48.2 - Chronic atrial fibrillation (2) HTN (hypertension) Code(s): I10 - ESSENTIAL (PRIMARY) HYPERTENSION Qualifiers: Qualified Code(s): I10 - Essential (primary) hypertension (3) Osteoarthritis of right knee Code(s): M17.11 - UNILATERAL PRIMARY OSTEOARTHRITIS, RIGHT KNEE Qualifiers: Qualified Code(s): M17.11 - Unilateral primary osteoarthritis, right knee (4) S/P aortic valve replacement with metallic valve Code(s): Z95.4 - PRESENCE OF OTHER HEART-VALVE REPLACEMENT (5) Diastolic dysfunction without heart failure Code(s): I51.9 - HEART DISEASE, UNSPECIFIED (6) Cerebrovascular disease Code(s): I67.9 - CEREBROVASCULAR DISEASE, UNSPECIFIED (7) S/P mitral valve replacement with metallic valve Code(s): Z95.4 - PRESENCE OF OTHER HEART-VALVE REPLACEMENT (8) Rheumatic heart disease Code(s): I09.9 - RHEUMATIC HEART DISEASE, UNSPECIFIED (9) Cardiac pacemaker in situ Code(s): Z95.0 - PRESENCE OF CARDIAC PACEMAKER (10) Chronic kidney disease (CKD) Code(s): N18.9 - CHRONIC KIDNEY DISEASE, UNSPECIFIED Qualifiers: Qualified Code(s): N18.3 - Chronic kidney disease, stage 3 (moderate) Assessment/Plan 11/16/2016 Echo: Normal LV size and fxn, mild ALICIA, [facility] AVR, mild-mod TR RVSP 51 mmHg 11/21/2016 Adenosine MIBI: No ischemia, LVEF 77% 1. POD#1 right TKR stable CV-chapa 2. RHD s/p Mech MVR, AVR with subtherapeutic INR 3. Permanent afib sss s/p PPM 4. Diastolic dysfunction 5. Hyperlipidemia 6. Cerebrovascular disease with h/o TIA P:1. Resumed ASA, heparin->coumadin per INR 3.0-3.5 2. Continue Bystolic 10 qd, Aldactone 25 qd, increase Cozaar 100 qd, and Lasix 40 qd pre-op 3. Analgesia as needed, PT as tolerated
--- NOTE | 2016-12-13 14:51 | PATH ---
Surgical Pathology Report Patient Name: [facility]. Rec. #: [id number] /Age/Gender: 1945 (Age: 71) / F Account: [id number] Location: [address] [place] [address]/[facility] Taken: 12/12/2016 Received: 12/12/2016 Reported: 12/13/2016 Physicians: Everett Davison M.D. Specimen(s) Received BONE [facility] KNEE Clinical History Osteoarthritis right knee Final Diagnosis BONE AND SOFT TISSUE, RIGHT KNEE, TOTAL KNEE REPLACEMENT: CONSISTENT WITH DEGENERATIVE JOINT DISEASE. Electronically Signed Lewis Peralta M.D. Gross Description Received in formalin labeled "bone right knee" is a 13.0 x 9.5 x 1.7 cm aggregate of irregular portions of bone and soft tissue with preserved tibial plateau and femoral condyles. The tibial plateau measures 7.4 x 4.8 x 1.0 cm. There is a 1.4 cm in greatest dimension area of eburnation present. The remaining articular surfaces are epstein-yellow and diffusely granular. The underlying trabecular bone is yellow and heterogeneous. Display Department Manager sections are submitted in one cassette, following decalcification. /12/12/201612/12/2016
[2016-12-13] MEDS: FLUTICASONE PROP 0.05% 16 GM NASAL SPRAY NS SCH (15:09)
[2016-12-13] MEDS: WARFARIN NA 5 MG TABLET (UD) PO SCH (16:59)
[2016-12-13] MEDS: MIRTAZAPINE 15 MG TABLET (FP) PO SCH (21:30)
[2016-12-14] MEDS: oxyCODONE HCL 5 MG TABLET PO PRN ×3 (05:50→21:21)
[2016-12-14] MEDS: ACETAMINOPHEN 325 MG TABLET (FP) PO PRN ×2 (05:51→11:32)
[2016-12-14 07:00] LABS: MCH 31.1 pg (25.7-33.7); MCHC 33.7 g/dl (32.0-36.0); MEAN CELL VOLUME 92.2 fl (80-96); PLATELET COUNT 175 K/MM3 (134-434); RDW 13.5 % (11.6-15.6); WHITE BLOOD COUNT 10.5 K/mm3 (4.0-10.0)
[2016-12-14 07:10] LABS: INR 1.47 (0.82-1.09); PROTHROMBIN TIME (PATIENT) 16.3 SEC (9.98-11.88)
[2016-12-14] MEDS: HEPARIN INFUSION - 500 ML IVPB SCH ×3 (10:03→21:22)
--- NOTE | 2016-12-14 10:41 | PN ---
Progress Note, Physician Chief Complaint: pt examined feels well - Current Medication List Current Medications: Active Medications Acetaminophen (Tylenol -) 650 mg PO Q6H PRN PRN Reason: FEVER OR PAIN Last Admin: 12/14/16 05:51 Dose: 650 mg Allopurinol (Zyloprim -) 100 mg PO DAILY [facility] Last Admin: 12/13/16 09:06 Dose: 100 mg Aspirin (Ecotrin -) 81 mg PO DAILY [facility] Last Admin: 12/13/16 09:06 Dose: 81 mg Fluticasone Propionate (Flonase -) 2 spray NS DAILY [facility] Last Admin: 12/13/16 15:09 Dose: 2 spray Furosemide (Lasix -) 40 mg PO DAILY [facility] Last Admin: 12/13/16 09:07 Dose: 40 mg Heparin Sodium (Porcine) (Heparin -) 5,000 unit IVPUSH PRN PRN Heparin Sodium (Porcine) (Heparin -) 1,000 unit IVPUSH PRN PRN Hydromorphone HCl (Dilaudid Injection -) 1 mg IVPB Q4H PRN PRN Reason: PAIN LEVEL 6-10 Heparin Sodium/Dextrose (Heparin Infusion -) 500 mls @ 17 mls/hr IVPB TITR MELISSA ; 850 UNITS/HR PRN Reason: Protocol Last Admin: 12/13/16 18:22 Dose: 17 mls/hr Losartan Potassium (Cozaar -) 100 mg PO DAILY [facility] Mirtazapine (Remeron -) 15 mg PO HS [facility] Last Admin: 12/13/16 21:30 Dose: 15 mg Nebivolol (Bystolic -) 10 mg PO DAILY [facility] Last Admin: 12/13/16 09:07 Dose: 10 mg Oxycodone HCl (Roxicodone -) 5 mg PO Q6H PRN PRN Reason: PAIN LEVEL 6-10 Last Admin: 12/14/16 05:50 Dose: 5 mg Pantoprazole Sodium (Protonix -) 40 mg PO DAILY [facility] Last Admin: 12/13/16 09:07 Dose: 40 mg Spironolactone (Aldactone -) 25 mg PO DAILY [facility] Last Admin: 12/13/16 09:06 Dose: 25 mg Warfarin Sodium (Coumadin -) 5 mg PO DAILY@1800 [facility] Last Admin: 12/13/16 16:59 Dose: 5 mg - Objective Vital Signs: Vital Signs Temperature 99.4 F 12/14/16 06:17 Pulse Rate 84 12/14/16 06:17 Respiratory Rate 22 12/14/16 06:17 Blood Pressure 134/62 12/14/16 06:17 O2 Sat by Pulse Oximetry (%) 97 12/13/16 21:00 Constitutional: Yes: No Distress Cardiovascular: Yes: Pulse Irregular, Murmur Respiratory: Yes: CTA Bilaterally Gastrointestinal: Yes: Normal Bowel Sounds, Soft. No: Distention, Tenderness Edema: Yes Edema: RLE: 1+ Labs: CBC, BMP 12/14/16 05:55 12/13/16 05:35 INR, PTT INR 1.47 (0.82-1.09) H 12/14/16 05:55 Problem List - Problems (1) Diastolic dysfunction without heart failure Code(s): I51.9 - HEART DISEASE, UNSPECIFIED (2) HTN (hypertension) Code(s): I10 - ESSENTIAL (PRIMARY) HYPERTENSION Qualifiers: Qualified Code(s): I10 - Essential (primary) hypertension (3) Osteoarthritis of right knee Code(s): M17.11 - UNILATERAL PRIMARY OSTEOARTHRITIS, RIGHT KNEE Qualifiers: Qualified Code(s): M17.11 - Unilateral primary osteoarthritis, right knee (4) S/P aortic valve replacement with metallic valve Code(s): Z95.4 - PRESENCE OF OTHER HEART-VALVE REPLACEMENT (5) Total knee replacement status Code(s): Z96.659 - PRESENCE OF UNSPECIFIED ARTIFICIAL KNEE JOINT Qualifiers: Qualified Code(s): Z96.651 - Presence of right artificial knee joint Assessment/Plan PLAN continue Heparin + Coumadin -- increase today 7.5mg chest is clear, possibly due to post nasal drip-- on Nasal sprays pain control incentive spirometry Cefazolin post surgery continue with meds DVT prophylaxis-- Heparin +Coumadin may need to consider rehab on discharge - pt lives alone
--- NOTE | 2016-12-14 11:00 | PN ---
Progress Note (short form) - Note Progress Note: Pt seen and examined. She is s/p right TKR Did P.T. this am, progressing slowly AVSS H/H stable RLE Grossly NVI Limited ROM at the right knee, pt encouraged to move it more Imp s/p R TKR doing fine Rec P.T., increase ROM/stretching exercises DC planning
[2016-12-14] MEDS: LOSARTAN POTASSIUM 50 MG TABLET (FP) PO SCH (11:25)
[2016-12-14] MEDS: FUROSEMIDE 40 MG TABLET (FP) PO SCH (11:25)
[2016-12-14] MEDS: ASPIRIN COATED 81 MG TABLET.EC PO SCH (11:26)
[2016-12-14] MEDS: PANTOPRAZOLE 40 MG TABLET (FP) PO SCH (11:26)
[2016-12-14] MEDS: SPIRONOLACTONE 25 MG TABLET (FP) PO SCH (11:26)
[2016-12-14] MEDS: ALLOPURINOL 100 MG TABLET (FP) PO SCH (11:26)
[2016-12-14] MEDS: NEBIVOLOL 10 MG TABLET (FP) PO SCH (11:27)
[2016-12-14] MEDS: FLUTICASONE PROP 0.05% 16 GM NASAL SPRAY NS SCH (11:27)
[2016-12-14] MEDS ORDERED: PT OWN MED DRAWER 7, Y5N ONE (11:45)
--- NOTE | 2016-12-14 12:04 | PN ---
Progress Note, Physician History of Present Illness: POD#2 right TKR, pain adequately controlled, tolerating PT. - Current Medication List Current Medications: Active Medications Acetaminophen (Tylenol -) 650 mg PO Q6H PRN PRN Reason: FEVER OR PAIN Last Admin: 12/14/16 11:32 Dose: 650 mg Allopurinol (Zyloprim -) 100 mg PO DAILY [facility] Last Admin: 12/14/16 11:26 Dose: 100 mg Aspirin (Ecotrin -) 81 mg PO DAILY [facility] Last Admin: 12/14/16 11:26 Dose: 81 mg Fluticasone Propionate (Flonase -) 2 spray NS DAILY [facility] Last Admin: 12/14/16 11:27 Dose: 2 spray Furosemide (Lasix -) 40 mg PO DAILY [facility] Last Admin: 12/14/16 11:25 Dose: 40 mg Heparin Sodium (Porcine) (Heparin -) 5,000 unit IVPUSH PRN PRN Heparin Sodium (Porcine) (Heparin -) 1,000 unit IVPUSH PRN PRN Last Admin: 12/14/16 11:26 Dose: 1,000 unit Hydromorphone HCl (Dilaudid Injection -) 1 mg IVPB Q4H PRN PRN Reason: PAIN LEVEL 6-10 Heparin Sodium/Dextrose (Heparin Infusion -) 500 mls @ 17 mls/hr IVPB TITR MELISSA ; 850 UNITS/HR PRN Reason: Protocol Last Admin: 12/14/16 11:00 Dose: 19 mls/hr Losartan Potassium (Cozaar -) 100 mg PO DAILY [facility] Last Admin: 12/14/16 11:25 Dose: 100 mg Mirtazapine (Remeron -) 15 mg PO HS [facility] Last Admin: 12/13/16 21:30 Dose: 15 mg Nebivolol (Bystolic -) 10 mg PO DAILY [facility] Last Admin: 12/14/16 11:27 Dose: 10 mg Oxycodone HCl (Roxicodone -) 5 mg PO Q6H PRN PRN Reason: PAIN LEVEL 6-10 Last Admin: 12/14/16 11:31 Dose: 5 mg Pantoprazole Sodium (Protonix -) 40 mg PO DAILY [facility] Last Admin: 12/14/16 11:26 Dose: 40 mg Spironolactone (Aldactone -) 25 mg PO DAILY [facility] Last Admin: 06/08/17 11:26 Dose: 25 mg Warfarin Sodium (Coumadin -) 7.5 mg PO DAILY@1800 MELISSA - Objective Vital Signs: Vital Signs Temperature 99.4 F 12/14/16 06:17 Pulse Rate 84 12/14/16 06:17 Respiratory Rate 22 12/14/16 06:17 Blood Pressure 134/62 12/14/16 06:17 O2 Sat by Pulse Oximetry (%) 97 12/13/16 21:00 Constitutional: Yes: No Distress, Calm Neck: Yes: Supple Cardiovascular: Yes: Regular Rate and Rhythm, Other ([place] mechanical valve sounds) Respiratory: Yes: Regular, Diminished Gastrointestinal: Yes: Normal Bowel Sounds, Soft Edema: No Labs: CBC, BMP 12/14/16 05:55 12/13/16 05:35 INR, PTT INR 1.47 (0.82-1.09) H 12/14/16 05:55 Problem List - Problems (1) Atrial fibrillation Code(s): I48.91 - UNSPECIFIED ATRIAL FIBRILLATION Qualifiers: Qualified Code(s): I48.2 - Chronic atrial fibrillation (2) HTN (hypertension) Code(s): I10 - ESSENTIAL (PRIMARY) HYPERTENSION Qualifiers: Qualified Code(s): I10 - Essential (primary) hypertension (3) Osteoarthritis of right knee Code(s): M17.11 - UNILATERAL PRIMARY OSTEOARTHRITIS, RIGHT KNEE Qualifiers: Qualified Code(s): M17.11 - Unilateral primary osteoarthritis, right knee (4) S/P aortic valve replacement with metallic valve Code(s): Z95.4 - PRESENCE OF OTHER HEART-VALVE REPLACEMENT (5) Diastolic dysfunction without heart failure Code(s): I51.9 - HEART DISEASE, UNSPECIFIED (6) Cerebrovascular disease Code(s): I67.9 - CEREBROVASCULAR DISEASE, UNSPECIFIED (7) S/P mitral valve replacement with metallic valve Code(s): Z95.4 - PRESENCE OF OTHER HEART-VALVE REPLACEMENT (8) Rheumatic heart disease Code(s): I09.9 - RHEUMATIC HEART DISEASE, UNSPECIFIED (9) Cardiac pacemaker in situ Code(s): Z95.0 - PRESENCE OF CARDIAC PACEMAKER (10) Chronic kidney disease (CKD) Code(s): N18.9 - CHRONIC KIDNEY DISEASE, UNSPECIFIED Qualifiers: Qualified Code(s): N18.3 - Chronic kidney disease, stage 3 (moderate) Assessment/Plan 11/16/2016 Echo: Normal LV size and fxn, mild ALICIA, [facility] AVR, mild-mod TR RVSP 51 mmHg 11/21/2016 Adenosine MIBI: No ischemia, LVEF 77% 1. POD#2 right TKR stable CV-chapa 2. RHD s/p Mech MVR, AVR with subtherapeutic INR 3. Permanent afib sss s/p PPM 4. Diastolic dysfunction 5. Hyperlipidemia 6. Cerebrovascular disease with h/o TIA P:1. Continue ASA 81 qd, heparin->coumadin per INR 3.0-3.5 2. Continue Bystolic 10 qd, Aldactone 25 qd, Cozaar 100 qd, and Lasix 40 qd 3. Analgesia as needed, PT->SNF
[2016-12-14] MEDS: WARFARIN NA 7.5 MG TABLET (FP) PO SCH (17:44)
[2016-12-14] MEDS: MIRTAZAPINE 15 MG TABLET (FP) PO SCH (21:21)
[2016-12-15 06:51] LABS: MCH 31.2 pg (25.7-33.7); MCHC 34.2 g/dl (32.0-36.0); MEAN CELL VOLUME 91.2 fl (80-96); PLATELET COUNT 171 K/MM3 (134-434); RDW 13.5 % (11.6-15.6); WHITE BLOOD COUNT 9.1 K/mm3 (4.0-10.0)
[2016-12-15 07:11] LABS: INR 1.48 (0.82-1.09); PROTHROMBIN TIME (PATIENT) 16.4 SEC (9.98-11.88)
--- NOTE | 2016-12-15 08:37 | PN ---
Progress Note (short form) - Note Progress Note: SUBJECTIVE: Patient seen and examined. Chart reviewed. Comfortable. Pain under control. Afebrile. OBJECTIVE: Vital Signs 12/15/16 05:56 Temperature 99.1 F Pulse Rate 85 Respiratory 20 Rate Blood Pressure 127/60 Intake & Output 12/14/16 12/15/16 12/15/16 23:59 07:59 15:59 Intake Total 320 228 Balance 320 228 Weight 82.554 kg Intake: IV 220 228 Heparin Infusion - 500 ml 220 228 @ 850 UNITS/HR 17 mls/hr IVPB TITR MELISSA Rx#: [id number] Oral 100 Other: Voiding Method Bedpan # Unmeasured Voids Void 2 1 Bowel Movement No No Weight Measurement Method Built in Bedscale Active Medications Acetaminophen (Tylenol -) 650 mg PO Q6H PRN PRN Reason: FEVER OR PAIN Last Admin: 12/15/16 08:48 Dose: 650 mg Allopurinol (Zyloprim -) 100 mg PO DAILY [facility] Last Admin: 12/14/16 11:26 Dose: 100 mg Aspirin (Ecotrin -) 81 mg PO DAILY [facility] Last Admin: 12/14/16 11:26 Dose: 81 mg Fluticasone Propionate (Flonase -) 2 spray NS DAILY [facility] Last Admin: 12/14/16 11:27 Dose: 2 spray Furosemide (Lasix -) 40 mg PO DAILY [facility] Last Admin: 12/14/16 11:25 Dose: 40 mg Heparin Sodium (Porcine) (Heparin -) 5,000 unit IVPUSH PRN PRN Heparin Sodium (Porcine) (Heparin -) 1,000 unit IVPUSH PRN PRN Last Admin: 12/14/16 11:26 Dose: 1,000 unit Hydromorphone HCl (Dilaudid Injection -) 1 mg IVPB Q4H PRN PRN Reason: PAIN LEVEL 6-10 Heparin Sodium/Dextrose (Heparin Infusion -) 500 mls @ 17 mls/hr IVPB TITR MELISSA ; 850 UNITS/HR PRN Reason: Protocol Last Admin: 12/14/16 21:22 Dose: 19 mls/hr Losartan Potassium (Cozaar -) 100 mg PO DAILY [facility] Last Admin: 12/14/16 11:25 Dose: 100 mg Mirtazapine (Remeron -) 15 mg PO HS [facility] Last Admin: 12/14/16 21:21 Dose: 15 mg Nebivolol (Bystolic -) 10 mg PO DAILY [facility] Last Admin: 12/14/16 11:27 Dose: 10 mg Oxycodone HCl (Roxicodone -) 5 mg PO Q6H PRN PRN Reason: PAIN LEVEL 6-10 Last Admin: 12/15/16 08:48 Dose: 5 mg Pantoprazole Sodium (Protonix -) 40 mg PO DAILY [facility] Last Admin: 12/14/16 11:26 Dose: 40 mg Spironolactone (Aldactone -) 25 mg PO DAILY [facility] Last Admin: 12/14/16 11:26 Dose: 25 mg Warfarin Sodium (Coumadin -) 7.5 mg PO DAILY@1800 [facility] Last Admin: 12/14/16 17:44 Dose: 7.5 mg Warfarin Sodium (Coumadin -) 2 mg PO ONCE@1800 ONE Stop: 12/15/16 18:01 CBC, BMP 12/15/16 06:20 12/13/16 05:35 Laboratory Results - last 24 hr 12/14/16 12/15/16 12/15/16 16:00 06:20 06:20 WBC 9.1 RBC 3.51 L Hgb 11.0 Hct 32.1 L MCV 91.2 MCHC 34.2 RDW 13.5 Plt Count 171 MPV 9.0 INR PTT (Actin FS) 61.8 H D 49.5 H 12/15/16 06:20 WBC RBC Hgb Hct MCV MCHC RDW Plt Count MPV INR 1.48 H PTT (Actin FS) PHYSICAL EXAMINATION: Constitutional: Yes: No Distress Cardiovascular: Yes: Pulse Irregular, Murmur Respiratory: Yes: CTA Bilaterally Gastrointestinal: Yes: Normal Bowel Sounds, Soft. No: Distention, Tenderness Edema: Yes Edema: RLE: 1+ Dressing in place on right knee. Problem List - Problems (1) Diastolic dysfunction without heart failure Code(s): I51.9 - HEART DISEASE, UNSPECIFIED (2) HTN (hypertension) Code(s): I10 - ESSENTIAL (PRIMARY) HYPERTENSION Qualifiers: Qualified Code(s): I10 - Essential (primary) hypertension (3) Osteoarthritis of right knee Code(s): M17.11 - UNILATERAL PRIMARY OSTEOARTHRITIS, RIGHT KNEE Qualifiers: Qualified Code(s): M17.11 - Unilateral primary osteoarthritis, right knee (4) S/P aortic valve replacement with metallic valve Code(s): Z95.4 - PRESENCE OF OTHER HEART-VALVE REPLACEMENT (5) Total knee replacement status Code(s): Z96.659 - PRESENCE OF UNSPECIFIED ARTIFICIAL KNEE JOINT Qualifiers: Qualified Code(s): Z96.651 - Presence of right artificial knee joint ASSESSMENT & PLAN: - Stable. - INR subtherapeutic. - Continue Heparin. - Will give a little extra dose of Coumadin today. - Physical Therapy. - Incentive spirometry encouraged to the patient. - Will need short term rehabilitation. - Will follow. - Discussed with nursing staff also. Documentation prepared by Sulema Fall, acting as a medical sonographer for Sheila Mcdowell MD.
[2016-12-15] MEDS: oxyCODONE HCL 5 MG TABLET PO PRN ×3 (08:48→21:31)
[2016-12-15] MEDS: ACETAMINOPHEN 325 MG TABLET (FP) PO PRN ×2 (08:48→15:14)
--- NOTE | 2016-12-15 09:27 | PN ---
Progress Note (short form) - Note Progress Note: Ortho Pt seen and examined s/p right tkr Selected Entries 12/15/16 05:56 Temperature 99.1 F Pulse Rate 85 Respiratory 20 Rate Blood Pressure 127/60 Laboratory Tests 12/15/16 06:20 WBC 9.1 Hgb 11.0 Hct 32.1 L Plt Count 171 dressing c/d/i, rom 5-40 calf soft, nt, nvi a/p PT AC as per medical/cardio pain control d/c planning to snf
[2016-12-15] MEDS ORDERED: PT OWN MED DRAWER 7, Y5N ONE (10:18)
[2016-12-15] MEDS: FLUTICASONE PROP 0.05% 16 GM NASAL SPRAY NS SCH (10:18)
[2016-12-15] MEDS: ALLOPURINOL 100 MG TABLET (FP) PO SCH (10:19)
[2016-12-15] MEDS: ASPIRIN COATED 81 MG TABLET.EC PO SCH (10:19)
[2016-12-15] MEDS: SPIRONOLACTONE 25 MG TABLET (FP) PO SCH (10:19)
[2016-12-15] MEDS: FUROSEMIDE 40 MG TABLET (FP) PO SCH (10:19)
[2016-12-15] MEDS: NEBIVOLOL 10 MG TABLET (FP) PO SCH (10:19)
[2016-12-15] MEDS: PANTOPRAZOLE 40 MG TABLET (FP) PO SCH (10:19)
[2016-12-15] MEDS: LOSARTAN POTASSIUM 50 MG TABLET (FP) PO SCH (10:19)
--- NOTE | 2016-12-15 16:34 | PN ---
Progress Note, Physician History of Present Illness: POD#3 right TKR, pain adequately controlled, tolerating PT. - Current Medication List Current Medications: Active Medications Acetaminophen (Tylenol -) 650 mg PO Q6H PRN PRN Reason: FEVER OR PAIN Last Admin: 12/15/16 15:14 Dose: 650 mg Allopurinol (Zyloprim -) 100 mg PO DAILY [facility] Last Admin: 12/15/16 10:19 Dose: 100 mg Aspirin (Ecotrin -) 81 mg PO DAILY [facility] Last Admin: 12/15/16 10:19 Dose: 81 mg Fluticasone Propionate (Flonase -) 2 spray NS DAILY [facility] Last Admin: 12/15/16 10:18 Dose: 2 spray Furosemide (Lasix -) 40 mg PO DAILY [facility] Last Admin: 12/15/16 10:19 Dose: 40 mg Heparin Sodium (Porcine) (Heparin -) 5,000 unit IVPUSH PRN PRN Heparin Sodium (Porcine) (Heparin -) 1,000 unit IVPUSH PRN PRN Last Admin: 12/14/16 11:26 Dose: 1,000 unit Hydromorphone HCl (Dilaudid Injection -) 1 mg IVPB Q4H PRN PRN Reason: PAIN LEVEL 6-10 Heparin Sodium/Dextrose (Heparin Infusion -) 500 mls @ 17 mls/hr IVPB TITR MELISSA ; 850 UNITS/HR PRN Reason: Protocol Last Admin: 12/14/16 21:22 Dose: 19 mls/hr Losartan Potassium (Cozaar -) 100 mg PO DAILY [facility] Last Admin: 12/15/16 10:19 Dose: 100 mg Mirtazapine (Remeron -) 15 mg PO HS [facility] Last Admin: 12/14/16 21:21 Dose: 15 mg Nebivolol (Bystolic -) 10 mg PO DAILY [facility] Last Admin: 12/15/16 10:19 Dose: 10 mg Oxycodone HCl (Roxicodone -) 5 mg PO Q6H PRN PRN Reason: PAIN LEVEL 6-10 Last Admin: 12/15/16 15:13 Dose: 5 mg Pantoprazole Sodium (Protonix -) 40 mg PO DAILY [facility] Last Admin: 12/15/16 10:19 Dose: 40 mg Spironolactone (Aldactone -) 25 mg PO DAILY [facility] Last Admin: 12/15/16 10:19 Dose: 25 mg Warfarin Sodium (Coumadin -) 7.5 mg PO DAILY@1800 [facility] Last Admin: 12/14/16 17:44 Dose: 7.5 mg Warfarin Sodium (Coumadin -) 2 mg PO ONCE@1800 ONE Stop: 12/15/16 18:01 - Objective Vital Signs: Vital Signs Temperature 98.0 F 12/15/16 14:10 Pulse Rate 66 12/15/16 14:10 Respiratory Rate 20 12/15/16 14:10 Blood Pressure 77/49 12/15/16 14:11 O2 Sat by Pulse Oximetry (%) 95 12/14/16 20:39 Constitutional: Yes: No Distress, Calm Neck: Yes: Supple Cardiovascular: Yes: Regular Rate and Rhythm, Other ([place] mechanical valve sounds) Respiratory: Yes: Regular, Diminished Gastrointestinal: Yes: Normal Bowel Sounds, Soft Edema: No Labs: CBC, BMP 12/15/16 06:20 12/13/16 05:35 INR, PTT INR 1.48 (0.82-1.09) H 12/15/16 06:20 Problem List - Problems (1) Atrial fibrillation Code(s): I48.91 - UNSPECIFIED ATRIAL FIBRILLATION Qualifiers: Qualified Code(s): I48.2 - Chronic atrial fibrillation (2) HTN (hypertension) Code(s): I10 - ESSENTIAL (PRIMARY) HYPERTENSION Qualifiers: Qualified Code(s): I10 - Essential (primary) hypertension (3) Osteoarthritis of right knee Code(s): M17.11 - UNILATERAL PRIMARY OSTEOARTHRITIS, RIGHT KNEE Qualifiers: Qualified Code(s): M17.11 - Unilateral primary osteoarthritis, right knee (4) S/P aortic valve replacement with metallic valve Code(s): Z95.4 - PRESENCE OF OTHER HEART-VALVE REPLACEMENT (5) Diastolic dysfunction without heart failure Code(s): I51.9 - HEART DISEASE, UNSPECIFIED (6) Cerebrovascular disease Code(s): I67.9 - CEREBROVASCULAR DISEASE, UNSPECIFIED (7) S/P mitral valve replacement with metallic valve Code(s): Z95.4 - PRESENCE OF OTHER HEART-VALVE REPLACEMENT (8) Rheumatic heart disease Code(s): I09.9 - RHEUMATIC HEART DISEASE, UNSPECIFIED (9) Cardiac pacemaker in situ Code(s): Z95.0 - PRESENCE OF CARDIAC PACEMAKER (10) Chronic kidney disease (CKD) Code(s): N18.9 - CHRONIC KIDNEY DISEASE, UNSPECIFIED Qualifiers: Qualified Code(s): N18.3 - Chronic kidney disease, stage 3 (moderate) Assessment/Plan 11/16/2016 Echo: Normal LV size and fxn, mild ALICIA, [facility] AVR, mild-mod TR RVSP 51 mmHg 11/21/2016 Adenosine MIBI: No ischemia, LVEF 77% 1. POD#3 right TKR stable CV-chapa 2. RHD s/p [facility] MVR, AVR with subtherapeutic INR 3. Permanent afib sss s/p PPM 4. Diastolic dysfunction 5. Hyperlipidemia 6. Cerebrovascular disease with h/o TIA P:1. Continue ASA 81 qd, heparin->coumadin per INR 3.0-3.5 2. Continue Bystolic 10 qd, Aldactone 25 qd, Cozaar 100 qd, and Lasix 40 qd 3. Analgesia as needed, PT->SNF
[2016-12-15] MEDS: WARFARIN NA 7.5 MG TABLET (FP) PO SCH (17:40)
[2016-12-15] MEDS ORDERED: WARFARIN NA 2 MG TABLET (UD) PO ONE (18:00)
[2016-12-15] MEDS: MIRTAZAPINE 15 MG TABLET (FP) PO SCH (21:31)
[2016-12-15] MEDS: HEPARIN INFUSION - 500 ML IVPB SCH (21:31)
[2016-12-16] MEDS: oxyCODONE HCL 5 MG TABLET PO PRN ×3 (06:53→21:06)
[2016-12-16 07:35] LABS: MCH 30.8 pg (25.7-33.7); MCHC 33.8 g/dl (32.0-36.0); MEAN CELL VOLUME 91.2 fl (80-96); MEAN PLT VOLUME 8.9 fl (7.5-11.1); PLATELET COUNT 196 K/MM3 (134-434); RDW 13.7 % (11.6-15.6); WHITE BLOOD COUNT 7.1 K/mm3 (4.0-10.0)
[2016-12-16 08:11] LABS: INR 1.75 (0.82-1.09); PROTHROMBIN TIME (PATIENT) 19.5 SEC (9.98-11.88)
[2016-12-16] MEDS: HEPARIN INFUSION - 500 ML IVPB SCH ×2 (08:45→21:04)
[2016-12-16] MEDS ORDERED: PT OWN MED DRAWER 7, Y5N ONE (09:32)
[2016-12-16] MEDS: PANTOPRAZOLE 40 MG TABLET (FP) PO SCH (09:40)
[2016-12-16] MEDS: ALLOPURINOL 100 MG TABLET (FP) PO SCH (09:41)
[2016-12-16] MEDS: FLUTICASONE PROP 0.05% 16 GM NASAL SPRAY NS SCH (09:41)
[2016-12-16] MEDS: SPIRONOLACTONE 25 MG TABLET (FP) PO SCH (09:41)
[2016-12-16] MEDS: FUROSEMIDE 40 MG TABLET (FP) PO SCH (09:41)
[2016-12-16] MEDS: LOSARTAN POTASSIUM 50 MG TABLET (FP) PO SCH (09:41)
[2016-12-16] MEDS: ASPIRIN COATED 81 MG TABLET.EC PO SCH (09:41)
[2016-12-16] MEDS: NEBIVOLOL 10 MG TABLET (FP) PO SCH (09:41)
--- NOTE | 2016-12-16 11:03 | PN ---
Progress Note (short form) - Note Progress Note: Pt seen/ examined feels ok c/c - dry cough otherwise ok Vital Signs Temp 99.0 F 12/16/16 07:06 Pulse 61 12/16/16 07:06 Resp 20 12/16/16 07:06 BP 110/76 12/16/16 07:06 Pulse Ox 98 12/15/16 20:23 Intake & Output 12/15/16 12/15/16 12/16/16 11:59 23:59 11:59 Intake Total 228 228 828 Balance 228 228 828 Weight 182 lb 186 lb 6 oz Intake: IV 228 228 228 Heparin Infusion - 500 ml 228 228 228 @ 850 UNITS/HR 17 mls/hr IVPB TITR MELISSA Rx#: [id number] Oral 600 Other: Voiding Method Toilet Toilet # Unmeasured Voids Void 1 Bowel Movement No Weight Measurement Method Built in Bedscale Built in Bedscale Active Medications Acetaminophen (Tylenol -) 650 mg PO Q6H PRN PRN Reason: FEVER OR PAIN Last Admin: 12/15/16 15:14 Dose: 650 mg Allopurinol (Zyloprim -) 100 mg PO DAILY [facility] Last Admin: 12/16/16 09:41 Dose: 100 mg Aspirin (Ecotrin -) 81 mg PO DAILY [facility] Last Admin: 12/16/16 09:41 Dose: 81 mg Fluticasone Propionate (Flonase -) 2 spray NS DAILY [facility] Last Admin: 12/16/16 09:41 Dose: 2 spray Furosemide (Lasix -) 40 mg PO DAILY [facility] Last Admin: 12/16/16 09:41 Dose: Not Given Heparin Sodium (Porcine) (Heparin -) 5,000 unit IVPUSH PRN PRN Heparin Sodium (Porcine) (Heparin -) 1,000 unit IVPUSH PRN PRN Last Admin: 12/14/16 11:26 Dose: 1,000 unit Heparin Sodium/Dextrose (Heparin Infusion -) 500 mls @ 17 mls/hr IVPB TITR MELISSA ; 850 UNITS/HR PRN Reason: Protocol Last Admin: 12/16/16 08:45 Dose: 19 mls/hr Losartan Potassium (Cozaar -) 100 mg PO DAILY [facility] Last Admin: 12/16/16 09:41 Dose: Not Given Mirtazapine (Remeron -) 15 mg PO HS [facility] Last Admin: 12/15/16 21:31 Dose: 15 mg Nebivolol (Bystolic -) 10 mg PO DAILY [facility] Last Admin: 12/16/16 09:41 Dose: Not Given Oxycodone HCl (Roxicodone -) 5 mg PO Q6H PRN PRN Reason: PAIN LEVEL 6-10 Last Admin: 12/16/16 06:53 Dose: 5 mg Pantoprazole Sodium (Protonix -) 40 mg PO DAILY [facility] Last Admin: 12/16/16 09:40 Dose: 40 mg Spironolactone (Aldactone -) 25 mg PO DAILY [facility] Last Admin: 12/16/16 09:41 Dose: Not Given Warfarin Sodium (Coumadin -) 7.5 mg PO DAILY@1800 [facility] Last Admin: 12/15/16 17:40 Dose: 7.5 mg CBC, BMP 12/16/16 06:00 12/13/16 05:35 INR, PTT INR 1.75 (0.82-1.09) H 12/16/16 06:00 PHYSICAL EXAMINATION: Constitutional: Yes: No Distress Cardiovascular: Yes: Pulse Irregular, Murmur Respiratory: Yes: clear to auscultation Gastrointestinal: Yes: Normal Bowel Sounds, Soft. No: Distention, Tenderness Edema: Yes Edema: RLE: 1+ Dressing in place on right knee. Problem List - Problems (1) Diastolic dysfunction without heart failure Code(s): I51.9 - HEART DISEASE, UNSPECIFIED (2) HTN (hypertension) Code(s): I10 - ESSENTIAL (PRIMARY) HYPERTENSION Qualifiers: Qualified Code(s): I10 - Essential (primary) hypertension (3) Osteoarthritis of right knee Code(s): M17.11 - UNILATERAL PRIMARY OSTEOARTHRITIS, RIGHT KNEE Qualifiers: Qualified Code(s): M17.11 - Unilateral primary osteoarthritis, right knee (4) S/P aortic valve replacement with metallic valve Code(s): Z95.4 - PRESENCE OF OTHER HEART-VALVE REPLACEMENT (5) Total knee replacement status Code(s): Z96.659 - PRESENCE OF UNSPECIFIED ARTIFICIAL KNEE JOINT Qualifiers: Qualified Code(s): Z96.651 - Presence of right artificial knee joint ASSESSMENT & PLAN: - overall stable -- continue present care - robitussin prn for cough. - Physical Therapy. - Incentive spirometry encouraged to the patient. - Will need short term rehabilitation. - Will follow. - Discussed with nursing staff also.
--- NOTE | 2016-12-16 11:33 | PN ---
Progress Note (short form) - Note Progress Note: Pt seen, doing fine, min c/o pain, s/p Right TKR. P.T. progressing slowly, she is able to weight bear. H/H stable B/L are NVI, right knee with limited ROM, but doing fine. Rec P.T., WBAT, and ROM exercises DC planning
--- NOTE | 2016-12-16 17:42 | PN ---
Progress Note (short form) - Note Progress Note: Chief Complaint: Events noted, notes reviewed, denies chest pain or dyspnea, complaining of incisional discomfort History of Present Illness: Seen and examined. Events noted, notes reviewed, denies chest pain or dyspnea, complaining of incisional discomfort POD#4 right TKR A/C in progress with Heparin/Coumadin - Current Medication List Current Medications Acetaminophen (Tylenol -) 650 mg PO Q6H PRN PRN Reason: FEVER OR PAIN Last Admin: 12/15/16 15:14 Dose: 650 mg Allopurinol (Zyloprim -) 100 mg PO DAILY [facility] Last Admin: 12/16/16 09:41 Dose: 100 mg Aspirin (Ecotrin -) 81 mg PO DAILY [facility] Last Admin: 12/16/16 09:41 Dose: 81 mg Fluticasone Propionate (Flonase -) 2 spray NS DAILY [facility] Last Admin: 12/16/16 09:41 Dose: 2 spray Furosemide (Lasix -) 40 mg PO DAILY [facility] Last Admin: 12/16/16 09:41 Dose: Not Given Guaifenesin (Robitussin -) 10 ml PO Q8H PRN PRN Reason: COUGH Heparin Sodium (Porcine) (Heparin -) 5,000 unit IVPUSH PRN PRN Heparin Sodium (Porcine) (Heparin -) 1,000 unit IVPUSH PRN PRN Last Admin: 12/14/16 11:26 Dose: 1,000 unit Heparin Sodium/Dextrose (Heparin Infusion -) 500 mls @ 17 mls/hr IVPB TITR MELISSA ; 850 UNITS/HR PRN Reason: Protocol Last Admin: 12/16/16 08:45 Dose: 19 mls/hr Losartan Potassium (Cozaar -) 100 mg PO DAILY [facility] Last Admin: 12/16/16 09:41 Dose: Not Given Mirtazapine (Remeron -) 15 mg PO HS [facility] Last Admin: 12/15/16 21:31 Dose: 15 mg Nebivolol (Bystolic -) 10 mg PO DAILY [facility] Last Admin: 12/16/16 09:41 Dose: Not Given Oxycodone HCl (Roxicodone -) 5 mg PO Q6H PRN PRN Reason: PAIN LEVEL 6-10 Last Admin: 12/16/16 13:17 Dose: 5 mg Pantoprazole Sodium (Protonix -) 40 mg PO DAILY [facility] Last Admin: 12/16/16 09:40 Dose: 40 mg Spironolactone (Aldactone -) 25 mg PO DAILY [facility] Last Admin: 12/16/16 09:41 Dose: Not Given Warfarin Sodium (Coumadin -) 7.5 mg PO DAILY@1800 [facility] Last Admin: 12/15/16 17:40 Dose: 7.5 mg - Objective Vital Signs: Last Vital Signs Temp Pulse Resp BP Pulse Ox 98.9 F 94 H 20 107/56 97 12/16/16 14:23 12/16/16 14:23 12/16/16 10:00 12/16/16 14:23 12/16/16 09:00 Constitutional: No Distress, Calm Neck: Supple Cardiovascular: Mechanical Clicks Regular Rate and Rhythm Respiratory: Clear to A&P Bilaterally Gastrointestinal: Soft Benign Normal Bowel Sounds Ext: No Edema Labs: CBC, BMP 12/16/16 06:00 12/13/16 05:35 INR, PTT INR 1.75 (0.82-1.09) H 12/16/16 06:00 Assessment/Plan ASSESSMENT: 1. POD#4 right TKR 2. RHD post Mechanical MVR, AVR with sub-therapeutic INR, Heparin 3. Permanent atrial fibrillation post PPM for slow ventricular rates 4. Diastolic dysfunction with class I NYHA classification LV failure, compensated 5. HTN 6. Hyperlipidemia 6. Cerebro-vascular disease history of TIA PLAN: 1. Continue ASA 2. Continue Heparin and Coumadin as per INR 3.0-3.5 3. Continue Bystolic 4. Continue Cozaar 5. Continue Lasix and Aldactone 6. Await rehab placement once INR is therapeutic Gina Florez MD
[2016-12-16] MEDS: WARFARIN NA 7.5 MG TABLET (FP) PO SCH (18:04)
[2016-12-16] MEDS: MIRTAZAPINE 15 MG TABLET (FP) PO SCH (21:04)
[2016-12-17] MEDS: HEPARIN INFUSION - 500 ML IVPB SCH (00:04)
[2016-12-17 08:18] LABS: MCH 30.8 pg (25.7-33.7); MCHC 33.5 g/dl (32.0-36.0); MEAN CELL VOLUME 91.9 fl (80-96); MEAN PLT VOLUME 8.8 fl (7.5-11.1); PLATELET COUNT 211 K/MM3 (134-434); RDW 13.8 % (11.6-15.6); WHITE BLOOD COUNT 6.4 K/mm3 (4.0-10.0)
[2016-12-17] MEDS: ACETAMINOPHEN 325 MG TABLET (FP) PO PRN ×3 (08:54→21:23)
[2016-12-17] MEDS: oxyCODONE HCL 5 MG TABLET PO PRN ×3 (08:55→20:04)
[2016-12-17] MEDS: guaiFENesin 200 MG/10 ML 10 ML UNIT-DOSE CUPS PO PRN ×2 (09:00→21:27)
[2016-12-17 09:39] LABS: INR 2.81 (0.82-1.09); PROTHROMBIN TIME (PATIENT) 31.6 SEC (9.98-11.88)
--- NOTE | 2016-12-17 10:12 | PN ---
Progress Note (short form) - Note Progress Note: feels well. no complains pain ok afebrile Vital Signs Temp 97.8 F 12/17/16 08:00 Pulse 83 12/17/16 08:00 Resp 18 12/17/16 08:00 BP 117/60 12/17/16 08:00 Pulse Ox 97 12/16/16 09:00 Intake & Output 12/16/16 12/16/16 12/17/16 11:59 23:59 11:59 Intake Total 828 1404 228 Balance 828 1404 228 Weight 186 lb 6 oz 186 lb 3 oz Intake: IV 228 204 228 Heparin Infusion - 500 ml 228 204 228 @ 850 UNITS/HR 17 mls/hr IVPB TITR MELISSA Rx#: [id number] Oral 600 1200 Other: Voiding Method Toilet Bedpan # Unmeasured Voids Void 2 Bowel Movement No Weight Measurement Method Built in Bedscale Built in Bedscale Active Medications Acetaminophen (Tylenol -) 650 mg PO Q6H PRN PRN Reason: FEVER OR PAIN Last Admin: 12/17/16 08:54 Dose: 650 mg Allopurinol (Zyloprim -) 100 mg PO DAILY [facility] Last Admin: 12/16/16 09:41 Dose: 100 mg Aspirin (Ecotrin -) 81 mg PO DAILY [facility] Last Admin: 12/16/16 09:41 Dose: 81 mg Fluticasone Propionate (Flonase -) 2 spray NS DAILY [facility] Last Admin: 12/16/16 09:41 Dose: 2 spray Furosemide (Lasix -) 40 mg PO DAILY [facility] Last Admin: 12/16/16 09:41 Dose: Not Given Guaifenesin (Robitussin -) 10 ml PO Q8H PRN PRN Reason: COUGH Last Admin: 12/17/16 09:00 Dose: 10 ml Heparin Sodium (Porcine) (Heparin -) 5,000 unit IVPUSH PRN PRN Heparin Sodium (Porcine) (Heparin -) 1,000 unit IVPUSH PRN PRN Last Admin: 12/14/16 11:26 Dose: 1,000 unit Losartan Potassium (Cozaar -) 100 mg PO DAILY [facility] Last Admin: 12/16/16 09:41 Dose: Not Given Mirtazapine (Remeron -) 15 mg PO HS [facility] Last Admin: 12/16/16 21:04 Dose: 15 mg Nebivolol (Bystolic -) 10 mg PO DAILY [facility] Last Admin: 12/16/16 09:41 Dose: Not Given Oxycodone HCl (Roxicodone -) 5 mg PO Q6H PRN PRN Reason: PAIN LEVEL 6-10 Last Admin: 12/17/16 08:55 Dose: 5 mg Pantoprazole Sodium (Protonix -) 40 mg PO DAILY [facility] Last Admin: 12/16/16 09:40 Dose: 40 mg Spironolactone (Aldactone -) 25 mg PO DAILY [facility] Last Admin: 12/16/16 09:41 Dose: Not Given Warfarin Sodium (Coumadin -) 5 mg PO DAILY@1800 [facility] CBC, BMP 12/17/16 07:20 12/13/16 05:35 INR, PTT INR 2.81 (0.82-1.09) H D 12/17/16 07:20 PHYSICAL EXAMINATION: Constitutional: Yes: No Distress Cardiovascular: Yes: Pulse Irregular, Murmur Respiratory: Yes: clear to auscultation Gastrointestinal: Yes: Normal Bowel Sounds, Soft. No: Distention, Tenderness Edema: Yes Edema: RLE: 1+ Dressing in place on right knee. Problem List - Problems (1) Diastolic dysfunction without heart failure Code(s): I51.9 - HEART DISEASE, UNSPECIFIED (2) HTN (hypertension) Code(s): I10 - ESSENTIAL (PRIMARY) HYPERTENSION Qualifiers: Qualified Code(s): I10 - Essential (primary) hypertension (3) Osteoarthritis of right knee Code(s): M17.11 - UNILATERAL PRIMARY OSTEOARTHRITIS, RIGHT KNEE Qualifiers: Qualified Code(s): M17.11 - Unilateral primary osteoarthritis, right knee (4) S/P aortic valve replacement with metallic valve Code(s): Z95.4 - PRESENCE OF OTHER HEART-VALVE REPLACEMENT (5) Total knee replacement status Code(s): Z96.659 - PRESENCE OF UNSPECIFIED ARTIFICIAL KNEE JOINT Qualifiers: Qualified Code(s): Z96.651 - Presence of right artificial knee joint ASSESSMENT & PLAN: - overall stable -- continue present care - robitussin prn for cough. - Physical Therapy. - Incentive spirometry - Will need short term rehabilitation. - d/c heparin and decrease dose of coumadin. - Will follow. - Discussed with nursing staff also. - anticipate d/c tomorrow for str
[2016-12-17] MEDS: ALLOPURINOL 100 MG TABLET (FP) PO SCH (10:50)
[2016-12-17] MEDS: PANTOPRAZOLE 40 MG TABLET (FP) PO SCH (10:50)
[2016-12-17] MEDS ORDERED: PT OWN MED DRAWER 7, Y5N ONE (10:50)
[2016-12-17] MEDS: ASPIRIN COATED 81 MG TABLET.EC PO SCH (10:50)
[2016-12-17] MEDS: FLUTICASONE PROP 0.05% 16 GM NASAL SPRAY NS SCH (10:50)
[2016-12-17] MEDS: FUROSEMIDE 40 MG TABLET (FP) PO SCH (10:51)
[2016-12-17] MEDS: LOSARTAN POTASSIUM 50 MG TABLET (FP) PO SCH (10:52)
[2016-12-17] MEDS: SPIRONOLACTONE 25 MG TABLET (FP) PO SCH (10:52)
[2016-12-17] MEDS: NEBIVOLOL 10 MG TABLET (FP) PO SCH (10:52)
--- NOTE | 2016-12-17 13:26 | PN ---
Progress Note (short form) - Note Progress Note: Chief Complaint: Events noted, notes reviewed, denies chest pain or dyspnea, complaining of knee discomfort post PT History of Present Illness: Seen and examined. Events noted, notes reviewed, denies chest pain or dyspnea, complaining of knee discomfort post PT POD#5 right TKR INR noted ideally should be 3-3.5 considering mechanical AVR, MVR, atrial fibrillation and history of CVA/TIA, Heparin D/C - Current Medication List Current Medications Acetaminophen (Tylenol -) 650 mg PO Q6H PRN PRN Reason: FEVER OR PAIN Last Admin: 12/17/16 08:54 Dose: 650 mg Allopurinol (Zyloprim -) 100 mg PO DAILY [facility] Last Admin: 12/17/16 10:50 Dose: 100 mg Aspirin (Ecotrin -) 81 mg PO DAILY [facility] Last Admin: 12/17/16 10:50 Dose: 81 mg Fluticasone Propionate (Flonase -) 2 spray NS DAILY [facility] Last Admin: 12/17/16 10:50 Dose: 2 spray Furosemide (Lasix -) 40 mg PO DAILY [facility] Last Admin: 12/17/16 10:51 Dose: 40 mg Guaifenesin (Robitussin -) 10 ml PO Q8H PRN PRN Reason: COUGH Last Admin: 12/17/16 09:00 Dose: 10 ml Heparin Sodium (Porcine) (Heparin -) 5,000 unit IVPUSH PRN PRN Heparin Sodium (Porcine) (Heparin -) 1,000 unit IVPUSH PRN PRN Last Admin: 12/14/16 11:26 Dose: 1,000 unit Losartan Potassium (Cozaar -) 100 mg PO DAILY [facility] Last Admin: 12/17/16 10:52 Dose: Not Given Mirtazapine (Remeron -) 15 mg PO HS [facility] Last Admin: 12/16/16 21:04 Dose: 15 mg Nebivolol (Bystolic -) 10 mg PO DAILY [facility] Last Admin: 12/17/16 10:52 Dose: 10 mg Oxycodone HCl (Roxicodone -) 5 mg PO Q6H PRN PRN Reason: PAIN LEVEL 6-10 Last Admin: 12/17/16 08:55 Dose: 5 mg Pantoprazole Sodium (Protonix -) 40 mg PO DAILY [facility] Last Admin: 12/17/16 10:50 Dose: 40 mg Spironolactone (Aldactone -) 25 mg PO DAILY [facility] Last Admin: 12/17/16 10:52 Dose: Not Given Warfarin Sodium (Coumadin -) 5 mg PO DAILY@1800 [facility] - Objective Vital Signs: Last Vital Signs Temp Pulse Resp BP Pulse Ox 97.8 F 55 L 18 104/44 97 12/17/16 08:00 12/17/16 10:49 12/17/16 10:49 12/17/16 10:49 12/16/16 09:00 Constitutional: No Distress, Calm Neck: Supple Cardiovascular: Mechanical Clicks Regular Rate and Rhythm Respiratory: Clear to A&P Bilaterally Gastrointestinal: Soft Benign Normal Bowel Sounds Ext: No Edema Labs: CBC, BMP 12/17/16 07:20 12/13/16 05:35 INR, PTT INR 2.81 (0.82-1.09) H D 12/17/16 07:20 Assessment/Plan ASSESSMENT: 1. POD#5 right TKR 2. RHD post Mechanical MVR, AVR with sub-therapeutic INR, Heparin D/C 3. Permanent atrial fibrillation post PPM for slow ventricular rates 4. Diastolic dysfunction with class I NYHA classification LV failure, compensated 5. HTN 6. Hyperlipidemia 6. Cerebro-vascular disease history of TIA PLAN: 1. Continue ASA 2. Continue Coumadin as per INR maintain 3.0-3.5 as outlined above 3. Continue Bystolic 4. Continue Cozaar 5. Continue Lasix and Aldactone 6. Await rehab placement Gina Florez MD
[2016-12-17] MEDS ORDERED: WARFARIN NA 5 MG TABLET (UD) PO SCH (18:00)
[2016-12-17] MEDS: MIRTAZAPINE 15 MG TABLET (FP) PO SCH (21:24)
[2016-12-18 07:34] LABS: MCH 30.7 pg (25.7-33.7); MCHC 33.3 g/dl (32.0-36.0); MEAN CELL VOLUME 92.2 fl (80-96); MEAN PLT VOLUME 8.7 fl (7.5-11.1); PLATELET COUNT 229 K/MM3 (134-434); RDW 13.7 % (11.6-15.6); WHITE BLOOD COUNT 6.9 K/mm3 (4.0-10.0)
[2016-12-18 08:14] VITALS: TEMP 98.5
[2016-12-18] MEDS: oxyCODONE HCL 5 MG TABLET PO PRN (08:22)
[2016-12-18] MEDS: ACETAMINOPHEN 325 MG TABLET (FP) PO PRN (08:23)
--- NOTE | 2016-12-18 08:27 | DS ---
Physical Examination Vital Signs: Vital Signs Temperature 98.5 F 12/18/16 08:00 Pulse Rate 74 12/18/16 08:00 Respiratory Rate 18 12/18/16 08:00 Blood Pressure 144/62 12/18/16 08:00 O2 Sat by Pulse Oximetry (%) 96 12/17/16 21:00 Labs: CBC, BMP 12/18/16 06:10 12/13/16 05:35 <Sheila Mcdowell - Last Filed: 12/18/16 08:27> Vital Signs: Vital Signs Temperature 98.5 F 12/18/16 08:00 Pulse Rate 74 12/18/16 08:00 Respiratory Rate 18 12/18/16 08:00 Blood Pressure 144/62 12/18/16 08:00 O2 Sat by Pulse Oximetry (%) 96 12/17/16 21:00 Labs: CBC, BMP 12/18/16 06:10 12/13/16 05:35 <Sulema Fall - Last Filed: 12/18/16 13:10> Discharge Summary Reason For Visit: OSTEOARTHRITIS Current Active Problems Atrial fibrillation (Acute) COPD (chronic obstructive pulmonary disease) (Acute) Cardiac pacemaker in situ (Acute) Cerebrovascular disease (Acute) Chronic kidney disease (CKD) (Acute) Diastolic dysfunction without heart failure (Acute) HTN (hypertension) (Acute) Osteoarthritis of right knee (Acute) Pre-operative cardiovascular examination (Acute) Rheumatic heart disease (Acute) S/P aortic valve replacement with metallic valve (Acute) S/P mitral valve replacement with metallic valve (Acute) Total knee replacement status (Acute) - Home Medications Comprehensive Discharge Medication List: Ambulatory Orders Aspirin [Aspirin EC] 81 mg PO DAILY #0 06/11/13 Furosemide [Lasix -] 40 mg PO DAILY 06/11/13 Nebivolol HCl [Bystolic] 10 mg PO DAILY #0 06/11/13 Warfarin Sodium 5 mg PO HS 06/11/13 Allopurinol [Zyloprim -] 100 mg PO DAILY 12/15/15 Cholecalciferol (Vitamin D3) [Vitamin D3] 1,000 mg PO DAILY 12/15/15 Mirtazapine [Remeron -] 15 mg PO HS 12/15/15 Multivit with Iron-Minerals [Compete] 1 each PO DAILY 12/15/15 Spironolactone [Aldactone] 25 mg PO DAILY 12/15/15 Ferrous Sulfate [Feosol] 325 mg PO BID 11/28/16 Acetaminophen [Tylenol .Regular Strength -] 650 mg PO Q6H PRN #0 tablet Aspirin Coated [Ecotrin -] 81 mg PO DAILY #30 tab MDD 1 12/18/16 Docusate Sodium [Colace -] 100 mg PO BID #14 capsule 12/18/16 Furosemide [Lasix -] 40 mg PO DAILY tablet 12/18/16 Guaifenesin [Robitussin -] 10 ml PO Q8H PRN #1 syr 12/18/16 Mirtazapine [Remeron -] 15 mg PO HS tablet 12/18/16 Oxycodone HCl [Roxicodone -] 5 mg PO Q6H PRN #30 tablet MDD 4 12/18/16 Pantoprazole Sodium [Protonix -] 40 mg PO DAILY #30 cap MDD 1 12/18/16 Sennosides [Senna] 8.6 mg PO HS 30 Days MDD 2 12/18/16 <Sheila Mcdowell - Last Filed: 12/18/16 08:27> Current Active Problems Atrial fibrillation (Acute) COPD (chronic obstructive pulmonary disease) (Acute) Cardiac pacemaker in situ (Acute) Cerebrovascular disease (Acute) Chronic kidney disease (CKD) (Acute) Diastolic dysfunction without heart failure (Acute) HTN (hypertension) (Acute) Osteoarthritis of right knee (Acute) Pre-operative cardiovascular examination (Acute) Rheumatic heart disease (Acute) S/P aortic valve replacement with metallic valve (Acute) S/P mitral valve replacement with metallic valve (Acute) Total knee replacement status (Acute) - Home Medications Comprehensive Discharge Medication List: Ambulatory Orders Aspirin [Aspirin EC] 81 mg PO DAILY #0 06/11/13 Furosemide [Lasix -] 40 mg PO DAILY 06/11/13 Nebivolol HCl [Bystolic] 10 mg PO DAILY #0 06/11/13 Warfarin Sodium 5 mg PO HS 06/11/13 Allopurinol [Zyloprim -] 100 mg PO DAILY 12/15/15 Cholecalciferol (Vitamin D3) [Vitamin D3] 1,000 mg PO DAILY 12/15/15 Mirtazapine [Remeron -] 15 mg PO HS 12/15/15 Multivit with Iron-Minerals [Compete] 1 each PO DAILY 12/15/15 Spironolactone [Aldactone] 25 mg PO DAILY 12/15/15 Ferrous Sulfate [Feosol] 325 mg PO BID 11/28/16 Acetaminophen [Tylenol .Regular Strength -] 650 mg PO Q6H PRN #0 tablet Aspirin Coated [Ecotrin -] 81 mg PO DAILY #30 tab MDD 1 12/18/16 Docusate Sodium [Colace -] 100 mg PO BID #14 capsule 12/18/16 Furosemide [Lasix -] 40 mg PO DAILY tablet 12/18/16 Guaifenesin [Robitussin -] 10 ml PO Q8H PRN #1 syr 12/18/16 Mirtazapine [Remeron -] 15 mg PO HS tablet 12/18/16 Oxycodone HCl [Roxicodone -] 5 mg PO Q6H PRN #30 tablet MDD 4 12/18/16 Pantoprazole Sodium [Protonix -] 40 mg PO DAILY #30 cap MDD 1 12/18/16 Sennosides [Senna] 8.6 mg PO HS 30 Days MDD 2 12/18/16 <Sulema Fall - Last Filed: 12/18/16 13:10> Condition: Good - Instructions Diet, Activity, Other Instructions: Post-op Instructions-Total Knee Replacement Call the office for a follow-up appointment in 1 week - [phone] Pain medication was sent into your pharmacy. Apply Graduated Compression Stockings (TEDs) to both lower extremities- remove daily for hygiene ONLY Apply Sequential Compression Device (SCDs) to both Lower extremities remove for PT and hygiene ONLY Apply cold packs to affected area for 15 minutes every 2 hours. Physical Therapist will come to your home for the first 5 days. You will be set up with outpatient PT at your first post-operative visit. Patient may ambulate as tolerated-encourage self care (at least every 2-3 hours while awake) with walker or cane Maintain Aquacel (waterproof) dressing to operative wound (will be removed by surgeon at first office visit) Shower with Aquacel dressing in place-if Aquacel integrity compromised, remove and apply dry sterile dressing and notify Orthopedist. DO NOT SHOWER unless Orthopedists approves without Aquacel dressing CONTACT THE OFFICE FOR ANY CHANGE IN YOUR CONDITION (for example-fever greater than 102 degrees,excessive bleeding from operative site, purulent drainage, severe swelling or pain) GO TO THE EMERGENCY ROOM IF THERE IS A MEDICAL EMERGENCY Knee Precautions: * Keep a rolled towel under affected heel while in bed or chair (to keep knee in extension) * Keep affected leg elevated except during mealtimes * DO NOT PLACE PILLOW UNDER AFFECTED KNEE * If you have any questions, please do not hesitate to call the office - . Referrals: Everett Davison MD [Staff Physician] - Disposition: [facility]/HOME HEALTH CARE
--- NOTE | 2016-12-18 08:49 | PN ---
Progress Note (short form) - Note Progress Note: Ortho Pt seen and examined s/p right tkr Selected Entries 12/18/16 08:00 Temperature 98.5 F Pulse Rate 74 Respiratory 18 Rate Blood Pressure 144/62 Laboratory Tests 12/17/16 12/18/16 07:20 06:10 WBC 6.9 Hgb 10.7 Hct 32.1 L Plt Count 229 INR 2.81 H D dressing c/d/i, rom 2-60 calf soft, nt, nvi a/p PT AC as per medical/cardio pain control d/c planning to snf
[2016-12-18] MEDS ORDERED: PT OWN MED DRAWER 7, Y5N ONE ×2 (09:34→12:20)
[2016-12-18] MEDS: PANTOPRAZOLE 40 MG TABLET (FP) PO SCH (09:37)
[2016-12-18] MEDS: ALLOPURINOL 100 MG TABLET (FP) PO SCH (09:37)
[2016-12-18] MEDS: ASPIRIN COATED 81 MG TABLET.EC PO SCH (09:37)
[2016-12-18] MEDS: FUROSEMIDE 40 MG TABLET (FP) PO SCH (09:37)
[2016-12-18] MEDS: FLUTICASONE PROP 0.05% 16 GM NASAL SPRAY NS SCH (09:38)
[2016-12-18] MEDS: LOSARTAN POTASSIUM 50 MG TABLET (FP) PO SCH (09:38)
[2016-12-18 10:52] LABS: INR 3.49 (0.82-1.09); PROTHROMBIN TIME (PATIENT) 39.4 SEC (9.98-11.88)
--- NOTE | 2016-12-18 10:53 | PN ---
Progress Note, Physician Chief Complaint: Events noted Receiving PT History of Present Illness: Patient was seen and examined. Awake and alert. Chart was reviewed Denies chest pain, SOB or palpitations - Current Medication List Current Medications: Active Medications Acetaminophen (Tylenol -) 650 mg PO Q6H PRN PRN Reason: FEVER OR PAIN Last Admin: 12/18/16 08:23 Dose: 650 mg Allopurinol (Zyloprim -) 100 mg PO DAILY [facility] Last Admin: 12/18/16 09:37 Dose: 100 mg Aspirin (Ecotrin -) 81 mg PO DAILY [facility] Last Admin: 12/18/16 09:37 Dose: 81 mg Fluticasone Propionate (Flonase -) 2 spray NS DAILY [facility] Last Admin: 12/18/16 09:38 Dose: 2 spray Furosemide (Lasix -) 40 mg PO DAILY [facility] Last Admin: 12/18/16 09:37 Dose: 40 mg Guaifenesin (Robitussin -) 10 ml PO Q8H PRN PRN Reason: COUGH Last Admin: 12/17/16 21:27 Dose: 10 ml Heparin Sodium (Porcine) (Heparin -) 5,000 unit IVPUSH PRN PRN Heparin Sodium (Porcine) (Heparin -) 1,000 unit IVPUSH PRN PRN Last Admin: 12/14/16 11:26 Dose: 1,000 unit Losartan Potassium (Cozaar -) 100 mg PO DAILY [facility] Last Admin: 12/18/16 09:38 Dose: 100 mg Mirtazapine (Remeron -) 15 mg PO HS [facility] Last Admin: 12/17/16 21:24 Dose: 15 mg Nebivolol (Bystolic -) 10 mg PO DAILY [facility] Last Admin: 12/17/16 10:52 Dose: 10 mg Oxycodone HCl (Roxicodone -) 5 mg PO Q6H PRN PRN Reason: PAIN LEVEL 6-10 Last Admin: 12/18/16 08:22 Dose: 5 mg Pantoprazole Sodium (Protonix -) 40 mg PO DAILY [facility] Last Admin: 12/18/16 09:37 Dose: 40 mg Spironolactone (Aldactone -) 25 mg PO DAILY [facility] Last Admin: 12/17/16 10:52 Dose: Not Given Warfarin Sodium (Coumadin -) 5 mg PO DAILY@1800 [facility] Last Admin: 12/17/16 18:00 Dose: 5 mg - Objective Vital Signs: Vital Signs Temperature 98.5 F 12/18/16 08:00 Pulse Rate 74 12/18/16 08:00 Respiratory Rate 18 12/18/16 08:00 Blood Pressure 144/62 12/18/16 08:00 O2 Sat by Pulse Oximetry (%) 96 12/17/16 21:00 Neck: Yes: Supple Cardiovascular: Yes: Regular Rate and Rhythm, S1, S2 Respiratory: Yes: CTA Bilaterally Gastrointestinal: Yes: Normal Bowel Sounds, Soft. No: Tenderness Edema: No Additional Findings/Remarks: - Problems (1) Atrial fibrillation Code(s): I48.91 - UNSPECIFIED ATRIAL FIBRILLATION Qualifiers: Qualified Code(s): I48.2 - Chronic atrial fibrillation (2) HTN (hypertension) Code(s): I10 - ESSENTIAL (PRIMARY) HYPERTENSION Qualifiers: Qualified Code(s): I10 - Essential (primary) hypertension (3) Osteoarthritis of right knee Code(s): M17.11 - UNILATERAL PRIMARY OSTEOARTHRITIS, RIGHT KNEE Qualifiers: Qualified Code(s): M17.11 - Unilateral primary osteoarthritis, right knee (4) S/P aortic valve replacement with metallic valve Code(s): Z95.4 - PRESENCE OF OTHER HEART-VALVE REPLACEMENT (5) Diastolic dysfunction without heart failure Code(s): I51.9 - HEART DISEASE, UNSPECIFIED (6) Cerebrovascular disease Code(s): I67.9 - CEREBROVASCULAR DISEASE, UNSPECIFIED (7) S/P mitral valve replacement with metallic valve Code(s): Z95.4 - PRESENCE OF OTHER HEART-VALVE REPLACEMENT (8) Rheumatic heart disease Code(s): I09.9 - RHEUMATIC HEART DISEASE, UNSPECIFIED (9) Cardiac pacemaker in situ Code(s): Z95.0 - PRESENCE OF CARDIAC PACEMAKER (10) Chronic kidney disease (CKD) Code(s): N18.9 - CHRONIC KIDNEY DISEASE, UNSPECIFIED Qualifiers: Qualified Code(s): N18.3 - Chronic kidney disease, stage 3 (moderate) Labs: CBC, BMP 12/18/16 06:10 12/13/16 05:35 INR, PTT INR 2.81 (0.82-1.09) H D 12/17/16 07:20 Assessment/Plan 1. POD#6 right TKR 2. RHD post Mechanical MVR, AVR 3. Permanent atrial fibrillation post PPM 4. Diastolic dysfunction with class I NYHA classification LV failure, compensated 5. HTN 6. Hyperlipidemia 7. Cerebro-vascular disease history of TIA PLAN: 1. Continue ASA 2. Continue Coumadin as per INR maintain 3.0-3.5 as outlined above 3. Continue Bystolic and Cozaar 4. Continue Lasix and Aldactone. Monitor renal function and electrolytes 5. Await rehab placement Vamshi López MD
--- NOTE | 2016-12-18 11:10 | DS ---
Physical Examination Vital Signs: Vital Signs Temperature 98.5 F 12/18/16 08:00 Pulse Rate 74 12/18/16 08:00 Respiratory Rate 18 12/18/16 08:00 Blood Pressure 144/62 12/18/16 08:00 O2 Sat by Pulse Oximetry (%) 96 12/17/16 21:00 Findings/Remarks: feels well. no issues doing pt Constitutional: Yes: No Distress, Calm Neck: Yes: Supple Cardiovascular: Yes: Pulse Irregular Respiratory: Yes: Rhonchi (few scattered). No: CTA Bilaterally Edema: No Wound/Incision: Yes: Dressing Dry and Intact Neurological: Yes: Alert Psychiatric: Yes: Alert Labs: CBC, BMP 12/18/16 06:10 12/13/16 05:35 Discharge Summary Reason For Visit: OSTEOARTHRITIS Current Active Problems Atrial fibrillation (Acute) COPD (chronic obstructive pulmonary disease) (Acute) Cardiac pacemaker in situ (Acute) Cerebrovascular disease (Acute) Chronic kidney disease (CKD) (Acute) Diastolic dysfunction without heart failure (Acute) HTN (hypertension) (Acute) Osteoarthritis of right knee (Acute) Pre-operative cardiovascular examination (Acute) Rheumatic heart disease (Acute) S/P aortic valve replacement with metallic valve (Acute) S/P mitral valve replacement with metallic valve (Acute) Total knee replacement status (Acute) Hospital Course: The patient is a 71-year-old woman with a significant past medical history of AVR(metallic in 1995), hypertension, atrial fibrillation, Spinal stenosis, R knee osteoarthritis, Gout, Depression and COPD who was admitted electively for a right total knee replacement by Dr. Davison. did well now ready for str pt going to [facility] - for str meds reconcilled will add ventolin inhaler prn incentive spirometry monitor inr closely-- goal 3--3.5 discussed with nursing staff also Pt in agreement f/u in office after discharge form discharge from half-way d/c time 35 min in examining / documenting and coordating care. Condition: Good - Instructions Diet, Activity, Other Instructions: Post-op Instructions-Total Knee Replacement Call the office for a follow-up appointment in 1 week - [phone] Pain medication was sent into your pharmacy. Apply Graduated Compression Stockings (TEDs) to both lower extremities- remove daily for hygiene ONLY Apply Sequential Compression Device (SCDs) to both Lower extremities remove for PT and hygiene ONLY Apply cold packs to affected area for 15 minutes every 2 hours. Physical Therapist will come to your home for the first 5 days. You will be set up with outpatient PT at your first post-operative visit. Patient may ambulate as tolerated-encourage self care (at least every 2-3 hours while awake) with walker or cane Maintain Aquacel (waterproof) dressing to operative wound (will be removed by surgeon at first office visit) Shower with Aquacel dressing in place-if Aquacel integrity compromised, remove and apply dry sterile dressing and notify Orthopedist. DO NOT SHOWER unless Orthopedists approves without Aquacel dressing CONTACT THE OFFICE FOR ANY CHANGE IN YOUR CONDITION (for example-fever greater than 102 degrees,excessive bleeding from operative site, purulent drainage, severe swelling or pain) GO TO THE EMERGENCY ROOM IF THERE IS A MEDICAL EMERGENCY Knee Precautions: * Keep a rolled towel under affected heel while in bed or chair (to keep knee in extension) * Keep affected leg elevated except during mealtimes * DO NOT PLACE PILLOW UNDER AFFECTED KNEE * If you have any questions, please do not hesitate to call the office - . Referrals: Everett Davison MD [Staff Physician] - Disposition: VNS/HOME HEALTH CARE - Home Medications Comprehensive Discharge Medication List: Ambulatory Orders Aspirin [Aspirin EC] 81 mg PO DAILY #0 06/11/13 Furosemide [Lasix -] 40 mg PO DAILY 06/11/13 Nebivolol HCl [Bystolic] 10 mg PO DAILY #0 06/11/13 Warfarin Sodium 5 mg PO HS 06/11/13 Allopurinol [Zyloprim -] 100 mg PO DAILY 12/15/15 Cholecalciferol (Vitamin D3) [Vitamin D3] 1,000 mg PO DAILY 12/15/15 Mirtazapine [Remeron -] 15 mg PO HS 12/15/15 Multivit with Iron-Minerals [Compete] 1 each PO DAILY 12/15/15 Spironolactone [Aldactone] 25 mg PO DAILY 12/15/15 Ferrous Sulfate [Feosol] 325 mg PO BID 11/28/16 Acetaminophen [Tylenol .Regular Strength -] 650 mg PO Q6H PRN #0 tablet Aspirin Coated [Ecotrin -] 81 mg PO DAILY #30 tab MDD 1 12/18/16 Docusate Sodium [Colace -] 100 mg PO BID #14 capsule 12/18/16 Furosemide [Lasix -] 40 mg PO DAILY tablet 12/18/16 Guaifenesin [Robitussin -] 10 ml PO Q8H PRN #1 syr 12/18/16 Mirtazapine [Remeron -] 15 mg PO HS tablet 12/18/16 Oxycodone HCl [Roxicodone -] 5 mg PO Q6H PRN #30 tablet MDD 4 12/18/16 Pantoprazole Sodium [Protonix -] 40 mg PO DAILY #30 cap MDD 1 12/18/16 Sennosides [Senna] 8.6 mg PO HS 30 Days MDD 2 12/18/16
[2016-12-18 12:29] VITALS: BP 105/51; PULSE 91
[2016-12-18] MEDS: SPIRONOLACTONE 25 MG TABLET (FP) PO SCH (12:30)
[2016-12-18] MEDS: NEBIVOLOL 10 MG TABLET (FP) PO SCH (12:30)
== END 2016-12-18 14:02 | DRG 470 ==
LOC: J6S 14:01
PROVIDERS: ADMIT Internal Medicine; ATTEND Orthopaedic Surgery
PROC: 0SRC0J9 Replacement of Right Knee Joint with Synthetic Substitute, Cemented, Open Approach (ICD-10-PCS; principal; 2016-12-12 10:00)
DX: M17.11 Unilateral primary osteoarthritis, right knee (principal); I48.2 Chronic atrial fibrillation; Z95.2 Presence of prosthetic heart valve; M10.9 Gout, unspecified; F32.9 Major depressive disorder, single episode, unspecified; J44.9 Chronic obstructive pulmonary disease, unspecified; Z95.0 Presence of cardiac pacemaker; I12.9 Hypertensive chronic kidney disease with stage 1 through stage 4 chronic kidney disease, or unspecified chronic kidney disease; N18.3 Chronic kidney disease, stage 3 (moderate); E78.5 Hyperlipidemia, unspecified; Z86.73 Personal history of transient ischemic attack (TIA), and cerebral infarction without residual deficits
CPT/HCPCS: 36415; 71010-TC; 73560-TC-RT; 80048; 80053; 81003; 81015; 85025; 85027; 85610; 85730; 88305-TC; 88311-TC; 94010; 94760; 97116-GP; 97161-GP; J1644

== ENCOUNTER 2018-12-15 11:11 | Inpatient (IN) | payer OTHER ==
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
[2018-12-15] MEDS ORDERED: SODIUM CHLORIDE 0.9% 500 ML INFUS.BAG IV ONE (12:37)
[2018-12-15 12:45] LABS: BASO % 1.2 % (0-2.0); EOS % 2.9 % (0-4.5); HEMATOCRIT 37.7 % (32.4-45.2); HEMOGLOBIN 12.4 GM/dL (10.7-15.3); LYMPH % 22.1 % (8-40); MCH 31.6 pg (25.7-33.7); MCHC 32.9 g/dl (32.0-36.0); MEAN CELL VOLUME 95.9 fl (80-96); MONO % 11.2 % (3.8-10.2); NEUT % 62.6 % (42.8-82.8); RBC 3.93 M/mm3 (3.60-5.2); RDW 18.7 % (11.6-15.6); WHITE BLOOD COUNT 4.3 K/mm3 (4.0-10.0)
[2018-12-15 13:10] LABS: ALK PHOS 90 U/L (45-117); ANION GAP 7 MMOL/L (8-16); BILIRUBIN,TOTAL 0.4 mg/dL (0.2-1); CALCIUM 9.5 mg/dL (8.5-10.1); CHLORIDE 108 mmol/L (98-107); CO2 26 mmol/L (21-32); CREATININE 1.1 mg/dL (0.55-1.3); GLUCOSE,RANDOM 93 mg/dL (74-106); POTASSIUM 4.6 mmol/L (3.5-5.1); SGOT/AST 26 U/L (15-37); SGPT/ALT 23 U/L (13-61); SODIUM 140 mmol/L (136-145); TOT PROT 7.1 g/dl (6.4-8.2)
[2018-12-15 13:13] LABS: ACTIVATED PTT 67.5 SECONDS (25.2-36.5)
[2018-12-15 13:16] LABS: HYALINE CASTS 5 /lpf (0-8); PH,URINE 5.5 (5.0-8.0); URINE APPEARANCE CLEAR; URINE BACTERIA 12.7 /hpf (NEGATIVE); URINE BILIRUBIN NEGATIVE (NEGATIVE); URINE COLOR YELLOW; URINE GLUCOSE (UA) NEGATIVE (NEGATIVE); URINE KETONE NEGATIVE (NEGATIVE); URINE LEUK ESTERASE 1+ (NEGATIVE); URINE NITRITE NEGATIVE (NEGATIVE); URINE PROTEIN NEGATIVE (NEGATIVE); URINE RBC 1 /hpf (0-4); URINE UROBILINOGEN 0.2 mg/dL (0.2-1.0); URINE WBC 4 /hpf (0-5)
[2018-12-15 13:21] LABS: INR 5.66 (0.83-1.09)
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
[2018-12-15] MEDS ORDERED: VANCOMYCIN 1 GM in D5W (PRE-DOCKED) 1,000 MG/250 ML IVPB ONE (14:15)
[2018-12-15 15:59] LABS: PLATELET COUNT 234 K/MM3 (134-434)
[2018-12-15] MEDS ORDERED: traMADol HCL 50 MG TABLET PO ONE (18:23)
[2018-12-15] MEDS: MIRTAZAPINE 15 MG TABLET (FP) PO SCH (21:30)
[2018-12-16] MEDS ORDERED: traMADol HCL 50 MG TABLET PO ONE (02:43)
[2018-12-16 06:27] LABS: PROTHROMBIN TIME (PATIENT) 68.9 SEC (9.7-13.0)
[2018-12-16 06:32] LABS: BASO % 0.9 % (0-2.0); EOS % 5.2 % (0-4.5); HEMATOCRIT 34.8 % (32.4-45.2); HEMOGLOBIN 11.8 GM/dL (10.7-15.3); LYMPH % 30.1 % (8-40); MCHC 33.8 g/dl (32.0-36.0); MEAN CELL VOLUME 94.6 fl (80-96); MEAN PLT VOLUME 8.6 fl (7.5-11.1); MONO % 13.3 % (3.8-10.2); NEUT % 50.5 % (42.8-82.8); PLATELET COUNT 213 K/MM3 (134-434); RBC 3.68 M/mm3 (3.60-5.2); RDW 18.5 % (11.6-15.6); WHITE BLOOD COUNT 3.4 K/mm3 (4.0-10.0)
[2018-12-16 07:14] LABS: ALBUMIN 3.4 g/dl (3.4-5.0); BILIRUBIN,TOTAL 0.4 mg/dL (0.2-1); BLOOD UREA NITROGEN 25.6 mg/dL (7-18); CALCIUM 8.8 mg/dL (8.5-10.1); POTASSIUM 4.5 mmol/L (3.5-5.1); TOT PROT 6.1 g/dl (6.4-8.2)
[2018-12-16 09:20] LABS: INR 5.74 (0.83-1.09)
[2018-12-16] MEDS: amLODIPine BESYLATE 10 MG TABLET (FP) PO SCH (09:45)
[2018-12-16] MEDS: ALLOPURINOL 100 MG TABLET (FP) PO SCH (09:45)
[2018-12-16] MEDS: METOPROLOL TARTRATE 50 MG TABLET (FP) PO SCH (09:45)
[2018-12-16] MEDS: CHOLECALCIFEROL (VIT D3) 1,000 UNIT (25 MCG) TABLET PO SCH (09:45)
[2018-12-16] MEDS: FUROSEMIDE 40 MG TABLET (FP) PO SCH (09:45)
[2018-12-16] MEDS: SPIRONOLACTONE 25 MG TABLET (FP) PO SCH (09:45)
[2018-12-16] MEDS: MULTIVITAMINS THER W-MINERALS COMBO TABLET (FP) PO SCH (09:45)
[2018-12-16] MEDS: levETIRAcetam 500 MG TABLET (FP) PO SCH (09:45)
[2018-12-16] MEDS ORDERED: PATIENT'S OWN MEDICATION (NON-FORMULARY) (Mirabegron [Myrbetriq] 25 MG) PO SCH (10:00)
--- NOTE | 2018-12-16 11:02 | PN ---
Progress Note (short form) - Note Progress Note: pt seen/ examined awake/ comfortable pain issues -- knee Vital Signs Temp 98.6 F 12/16/18 10:00 Pulse 70 12/16/18 10:00 Resp 18 12/16/18 10:00 BP 136/71 12/16/18 10:00 Pulse Ox 99 12/15/18 11:19 Intake & Output 12/15/18 12/15/18 12/16/18 11:59 23:59 11:59 Intake Total 1150 350 Balance 1150 350 Weight 187 lb 197 lb 0.3 oz 196 lb 2 oz Intake: IVPB 250 Oral 900 350 Other: Voiding Method Toilet Toilet # Unmeasured Voids Void 2 Bowel Movement No Height 5 ft 6 in 5 ft 6 in Body Mass Index (BMI) 30.2 31.8 Weight Measurement Method Standing Scale Standing Scale Active Medications Acetaminophen (Tylenol -) 650 mg PO Q4H PRN PRN Reason: PAIN LEVEL 1-5 Allopurinol (Zyloprim -) 100 mg PO DAILY [facility] Last Admin: 12/16/18 09:45 Dose: 100 mg Amlodipine Besylate (Norvasc -) 10 mg PO DAILY [facility] Last Admin: 12/16/18 09:45 Dose: 10 mg Cholecalciferol (Vitamin D3 -) 1,000 unit PO DAILY [facility] Last Admin: 12/16/18 09:45 Dose: 1,000 unit Furosemide (Lasix -) 40 mg PO DAILY [facility] Last Admin: 12/16/18 09:45 Dose: 40 mg Levetiracetam (Keppra -) 500 mg PO DAILY [facility] Last Admin: 12/16/18 09:45 Dose: 500 mg Metoprolol Tartrate (Lopressor -) 50 mg PO DAILY [facility] Last Admin: 12/16/18 09:45 Dose: 50 mg Mirtazapine (Remeron -) 15 mg PO HS [facility] Last Admin: 12/15/18 21:30 Dose: 15 mg Multivitamins/Minerals (Theragran-M) 1 each PO DAILY [facility] Last Admin: 12/16/18 09:45 Dose: 1 each Non-Formulary Medication (Mirabegron [Myrbetriq]) 25 mg PO DAILY [facility] Oxycodone HCl (Roxicodone -) 5 mg PO Q8H PRN PRN Reason: PAIN SCALE 6-10 Spironolactone (Aldactone -) 25 mg PO DAILY [facility] Last Admin: 12/16/18 09:45 Dose: 25 mg CBC, BMP 12/16/18 05:50 12/16/18 05:50 Microbiology 12/15/18 12:00 Gram Stain - Final Knee - Left Wound Culture - Preliminary Staphylococcus Coagulase Neg 12/15/18 12:52 Urine Culture - Final Urine - Urine Clean Catch INR, PTT INR 5.74 (0.83-1.09) H* 12/16/18 05:50 Physical Examination Constitutional: Yes: No Distress, Calm Eyes: Yes: Conjunctiva Clear Neck: Yes: Supple Cardiovascular: Yes: Pulse Irregular. No: Regular Rate and Rhythm Respiratory: Yes: CTA Bilaterally Gastrointestinal: Yes: Soft Extremities: Yes: Erythema, Other (right knee-- Swelling/ eschar/ erythema) Edema: No Neurological: Yes: Alert Psychiatric: Yes: Alert Assessment/Plan Discussed abx i/d consult pending hold asa/ coumadin till inr thrapetic got vanco in [place] will follow will consult ortho also Problem List - Problems (1) Infection of right knee Code(s): M00.9 - PYOGENIC ARTHRITIS, UNSPECIFIED (2) Atrial fibrillation Code(s): I48.91 - UNSPECIFIED ATRIAL FIBRILLATION Qualifiers: Atrial fibrillation type: permanent Qualified Code(s): I48.2 - Chronic atrial fibrillation (3) HTN (hypertension) Code(s): I10 - ESSENTIAL (PRIMARY) HYPERTENSION Qualifiers: Hypertension type: essential hypertension Qualified Code(s): I10 - Essential (primary) hypertension (4) Rheumatic heart disease Code(s): I09.9 - RHEUMATIC HEART DISEASE, UNSPECIFIED (5) S/P aortic valve replacement with metallic valve Code(s): Z95.4 - PRESENCE OF OTHER HEART-VALVE REPLACEMENT (6) S/P mitral valve replacement with metallic valve Code(s): Z95.4 - PRESENCE OF OTHER HEART-VALVE REPLACEMENT
--- NOTE | 2018-12-16 11:43 | EKG ---
Test Reason : Blood Pressure : / mmHG Vent. Rate : 057 BPM Atrial Rate : 340 BPM P-R Int : 000 ms QRS Dur : 080 ms QT Int : 402 ms P-R-T Axes : 000 066 -42 degrees QTc Int : 391 ms ATRIAL FIBRILLATION WITH SLOW VENTRICULAR RESPONSE WITH OCCASIONAL ventricular-paced complexes ABNORMAL ECG WHEN COMPARED WITH ECG OF 27-NOV-2016 08:43, VENTRICULAR PACED RHYTHM IS SEEN ATRIAL FIBRILLATION HAS REPLACED ATRIAL FLUTTER Confirmed by BONITA OROURKE, JOSE MARIA ([id number]) on 12/16/2018 11:42:27 AM Referred By: Confirmed By:JOSE MARIA MESA MD
[2018-12-16] MEDS: oxyCODONE HCL 5 MG TABLET PO PRN ×2 (13:28→21:49)
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
--- NOTE | 2018-12-16 14:05 | PN ---
Progress Note (short form) - Note Progress Note: ID CONSULT DICTATED CHRONIC WOUND INFECTION, R KNEE ? INFECTED TKR PCN ALLERGY AWAIT C/S WOULD IMAGE KNEE TO R/O COLLECTION ORTHO EVAL EMPIRIC VANCOMYCIN
[2018-12-16] MEDS ORDERED: VANCOMYCIN 1 GRAM (PRE-DOCKED) 1,000 MG/250 ML BAG IVPB SCH (14:15)
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
[2018-12-16] MEDS: VANCOMYCIN 1,250 MG in DEXTROSE 5%-WATER - 250 ML IVPB SCH (15:42)
[2018-12-16] MEDS: COLLAGENASE CLOSTRIDIUM HIST. 30 GRAMS TUBE TP SCH (17:24)
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
[2018-12-16] MEDS: MIRTAZAPINE 15 MG TABLET (FP) PO SCH (21:47)
[2018-12-16] MEDS: ACETAMINOPHEN 325 MG TABLET (FP) PO PRN (21:50)
[2018-12-17] MEDS: VANCOMYCIN 1,250 MG in DEXTROSE 5%-WATER - 250 ML IVPB SCH ×2 (03:19→15:29)
[2018-12-17] MEDS ORDERED: PT OWN MED DRAWER 7, Y5N ONE ×2 (06:46→15:19)
[2018-12-17 07:54] LABS: INR 3.8 (0.83-1.09); PROTHROMBIN TIME (PATIENT) 45.4 SEC (9.7-13.0)
[2018-12-17] MEDS: oxyCODONE HCL 5 MG TABLET PO PRN ×2 (09:40→18:35)
[2018-12-17] MEDS: METOPROLOL TARTRATE 50 MG TABLET (FP) PO SCH (09:40)
[2018-12-17] MEDS: SPIRONOLACTONE 25 MG TABLET (FP) PO SCH (09:40)
[2018-12-17] MEDS: ALLOPURINOL 100 MG TABLET (FP) PO SCH (09:41)
[2018-12-17] MEDS: MULTIVITAMINS THER W-MINERALS COMBO TABLET (FP) PO SCH (09:41)
[2018-12-17] MEDS: levETIRAcetam 500 MG TABLET (FP) PO SCH (09:41)
[2018-12-17] MEDS: FUROSEMIDE 40 MG TABLET (FP) PO SCH (09:41)
[2018-12-17] MEDS: amLODIPine BESYLATE 10 MG TABLET (FP) PO SCH (09:41)
[2018-12-17] MEDS: CHOLECALCIFEROL (VIT D3) 1,000 UNIT (25 MCG) TABLET PO SCH (09:42)
[2018-12-17] MEDS: COLLAGENASE CLOSTRIDIUM HIST. 30 GRAMS TUBE TP SCH (10:21)
--- NOTE | 2018-12-17 12:08 | PN ---
Progress Note (short form) - Note Progress Note: pain better controlled Events noted Vital Signs - 24 hr 12/16/18 12/16/18 12/16/18 13:12 18:00 21:00 Temperature 97.6 F 97.7 F Pulse Rate 63 53 L Respiratory 18 20 Rate Blood Pressure 103/67 103/62 O2 Sat by Pulse 100 Oximetry (%) 12/16/18 12/17/18 12/17/18 22:00 06:00 09:16 Temperature 97.8 F 97.4 F L 98 F Pulse Rate 54 L 54 L 60 Respiratory 16 18 18 Rate Blood Pressure 107/51 L 112/60 123/70 O2 Sat by Pulse Oximetry (%) Current Medications Generic Name Dose Route Start Last Admin Trade Name Freq PRN Reason Stop Dose Admin Acetaminophen 650 mg 12/15/18 13:32 12/16/18 21:50 Tylenol - PO 650 mg Q4H PRN Administration PAIN LEVEL 1-5 Allopurinol 100 mg 12/16/18 10:00 12/17/18 09:41 Zyloprim - PO 100 mg DAILY MELISSA Administration Amlodipine Besylate 10 mg 12/16/18 10:00 12/17/18 09:41 Norvasc - PO 10 mg DAILY MELISSA Administration Cholecalciferol 1,000 unit 12/16/18 10:00 12/17/18 09:42 Vitamin D3 - PO 1,000 unit DAILY MELISSA Administration Collagenase 1 applic 12/16/18 15:45 12/17/18 10:21 Santyl - TP 1 appful DAILY MELISSA Administration Protocol Furosemide 40 mg 12/16/18 10:00 12/17/18 09:41 Lasix - PO 40 mg DAILY MELISSA Administration Vancomycin HCl 1,250 mg/ 250 mls @ 166.667 mls/hr 12/16/18 14:30 12/17/18 03: 19 Dextrose IVPB 166.667 mls/hr Q12H MELISSA Administration Protocol Levetiracetam 500 mg 12/16/18 10:00 12/17/18 09:41 Keppra - PO 500 mg DAILY MELISSA Administration Metoprolol Tartrate 50 mg 12/16/18 10:00 12/17/18 09:40 Lopressor - PO 50 mg DAILY MELISSA Administration Mirtazapine 15 mg 12/15/18 22:00 12/16/18 21:47 Remeron - PO 15 mg HS MELISSA Administration Multivitamins/Minerals 1 each 12/16/18 10:00 12/17/18 09:41 Theragran-M PO 1 each DAILY MELISSA Administration Non-Formulary Medication 25 mg 12/16/18 10:00 Mirabegron [Myrbetriq] PO DAILY MELISSA Oxycodone HCl 5 mg 12/16/18 09:30 12/17/18 09:40 Roxicodone - PO 5 mg Q8H PRN Administration PAIN SCALE 6-10 Spironolactone 25 mg 12/16/18 10:00 12/17/18 09:40 Aldactone - PO 25 mg DAILY MELISSA Administration Laboratory Results - last 24 hr 12/17/18 06:20 PT with INR 45.40 H INR 3.80 H S1 S2 irregular, systolic click+ lungs clear Abd- soft, NT rt knee-- effusion+, wound noted PLAN ortho eval noted-- no signs of infection will order CT scan of knee IV antibiotics per ID Santyl dressing PT eval hold coumadin tonight ' Problem List - Problems (1) Infection of right knee Code(s): M00.9 - PYOGENIC ARTHRITIS, UNSPECIFIED (2) Atrial fibrillation Code(s): I48.91 - UNSPECIFIED ATRIAL FIBRILLATION Qualifiers: Atrial fibrillation type: permanent Qualified Code(s): I48.2 - Chronic atrial fibrillation (3) COPD (chronic obstructive pulmonary disease) Code(s): J44.9 - CHRONIC OBSTRUCTIVE PULMONARY DISEASE, UNSPECIFIED Qualifiers: COPD type: unspecified COPD Qualified Code(s): J44.9 - Chronic obstructive pulmonary disease, unspecified
[2018-12-17] MEDS: ACETAMINOPHEN 325 MG TABLET (FP) PO PRN (15:23)
--- NOTE | 2018-12-17 16:14 | PN ---
Progress Note (short form) - Note Progress Note: Pt seen and examined. Her right knee is feeling better, less pain, better ROM. She is being followed by the Wound Care team, who, according to the pt, is planning on doing a bedside debridement this afternoon. She has been seen by P.T. She has ambulated with assistance, and has gotten OOB to chair today. She is also actively trying to flex and extend the knee. INR much improved, down to 3.80 CT scan right knee shows only an organized subcutaneous hematoma/fluid collection. No fractures or loosening around the TKR prosthesis. Imp Overall doing much better Rec Con't P.T., OOB to chair, active and passive ROM exercises to the R knee, no restrictions, WBAT. No surgery needed Wound care team She can be DC'd from an orthopedic POV, and f/u with Dr Davison as an out patient
--- NOTE | 2018-12-17 17:34 | PN ---
Progress Note, Physician History of Present Illness: AWAKE, ALERT IN BED C/O KNEE PAIN AFEBRILE CT SHOWED FLUID COLLECTION - Current Medication List Current Medications: Active Medications Acetaminophen (Tylenol -) 650 mg PO Q4H PRN PRN Reason: PAIN LEVEL 1-5 Last Admin: 12/17/18 15:23 Dose: 650 mg Allopurinol (Zyloprim -) 100 mg PO DAILY [facility] Last Admin: 12/17/18 09:41 Dose: 100 mg Amlodipine Besylate (Norvasc -) 10 mg PO DAILY [facility] Last Admin: 12/17/18 09:41 Dose: 10 mg Cholecalciferol (Vitamin D3 -) 1,000 unit PO DAILY [facility] Last Admin: 12/17/18 09:42 Dose: 1,000 unit Collagenase (Santyl -) 1 applic TP DAILY [facility]; Protocol Last Admin: 12/17/18 10:21 Dose: 1 appful Furosemide (Lasix -) 40 mg PO DAILY [facility] Last Admin: 12/17/18 09:41 Dose: 40 mg Vancomycin HCl 1,250 mg/ (Dextrose) 250 mls @ 166.667 mls/hr IVPB Q12H [facility]; Protocol Last Admin: 12/17/18 15:29 Dose: 166.667 mls/hr Levetiracetam (Keppra -) 500 mg PO DAILY [facility] Last Admin: 12/17/18 09:41 Dose: 500 mg Metoprolol Tartrate (Lopressor -) 50 mg PO DAILY [facility] Last Admin: 12/17/18 09:40 Dose: 50 mg Mirtazapine (Remeron -) 15 mg PO HS [facility] Last Admin: 12/16/18 21:47 Dose: 15 mg Multivitamins/Minerals (Theragran-M) 1 each PO DAILY [facility] Last Admin: 12/17/18 09:41 Dose: 1 each Non-Formulary Medication (Mirabegron [Myrbetriq]) 25 mg PO DAILY [facility] Oxycodone HCl (Roxicodone -) 5 mg PO Q8H PRN PRN Reason: PAIN SCALE 6-10 Last Admin: 12/17/18 09:40 Dose: 5 mg Spironolactone (Aldactone -) 25 mg PO DAILY [facility] Last Admin: 12/17/18 09:40 Dose: 25 mg - Objective Vital Signs: Vital Signs Temperature 98.4 F 12/17/18 13:58 Pulse Rate 54 L 12/17/18 13:58 Respiratory Rate 18 12/17/18 13:58 Blood Pressure 109/64 12/17/18 13:58 O2 Sat by Pulse Oximetry (%) 100 12/17/18 09:00 Constitutional: Yes: No Distress Eyes: Yes: Conjunctiva Clear Cardiovascular: Yes: Regular Rate and Rhythm, S1, S2 Respiratory: Yes: CTA Bilaterally Gastrointestinal: Yes: Normal Bowel Sounds, Soft. No: Tenderness Extremities: Yes: Other (R KNEE WITH DRY NECROTIC ULCER NO DRAINAGE) Labs: CBC, BMP 12/16/18 05:50 12/16/18 05:50 INR, PTT INR 3.80 (0.83-1.09) H 12/17/18 06:20 Assessment/Plan INFECTED ULCER R KNEE ? INFECTED HEMATOMA S/P TKR SURGICAL CONSULTS NOTED FOR DEBRIDMENT CONTINUE VANCOMYCIN
[2018-12-17] MEDS ORDERED: oxyCODONE HCL 5 MG TABLET PO PRN (18:27)
[2018-12-17] MEDS: MIRTAZAPINE 15 MG TABLET (FP) PO SCH (21:30)
[2018-12-18] MEDS ORDERED: PT OWN MED DRAWER 7, Y5N ONE ×3 (01:24→14:52)
[2018-12-18] MEDS: VANCOMYCIN 1,250 MG in DEXTROSE 5%-WATER - 250 ML IVPB SCH ×2 (01:30→19:08)
[2018-12-18 07:51] LABS: INR 2.14 (0.83-1.09); PROTHROMBIN TIME (PATIENT) 25.5 SEC (9.7-13.0)
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
[2018-12-18] MEDS: METOPROLOL TARTRATE 50 MG TABLET (FP) PO SCH (10:13)
[2018-12-18] MEDS: oxyCODONE HCL 5 MG TABLET PO PRN ×2 (10:13→20:40)
[2018-12-18] MEDS: SPIRONOLACTONE 25 MG TABLET (FP) PO SCH (10:14)
[2018-12-18] MEDS: amLODIPine BESYLATE 10 MG TABLET (FP) PO SCH (10:14)
[2018-12-18] MEDS: FUROSEMIDE 40 MG TABLET (FP) PO SCH (10:14)
[2018-12-18] MEDS: levETIRAcetam 500 MG TABLET (FP) PO SCH (10:14)
[2018-12-18] MEDS: ALLOPURINOL 100 MG TABLET (FP) PO SCH (10:14)
[2018-12-18] MEDS: CHOLECALCIFEROL (VIT D3) 1,000 UNIT (25 MCG) TABLET PO SCH (10:15)
[2018-12-18] MEDS: COLLAGENASE CLOSTRIDIUM HIST. 30 GRAMS TUBE TP SCH (10:19)
[2018-12-18] MEDS: MULTIVITAMINS THER W-MINERALS COMBO TABLET (FP) PO SCH (12:04)
--- NOTE | 2018-12-18 12:18 | PN ---
Progress Note (short form) - Note Progress Note: pain better controlled Events noted Vital Signs - 24 hr 12/17/18 12/17/18 12/17/18 13:58 18:00 21:00 Temperature 98.4 F 97.8 F Pulse Rate 54 L 63 Respiratory 18 20 Rate Blood Pressure 109/64 108/61 O2 Sat by Pulse 97 Oximetry (%) 12/17/18 12/18/18 22:00 06:00 Temperature 97.8 F 97.6 F Pulse Rate 56 L 75 Respiratory 20 20 Rate Blood Pressure 107/55 L 107/57 L O2 Sat by Pulse Oximetry (%) Current Medications Generic Name Dose Route Start Last Admin Trade Name Freq PRN Reason Stop Dose Admin Acetaminophen 650 mg 12/15/18 13:32 12/17/18 15:23 Tylenol - PO 650 mg Q4H PRN Administration PAIN LEVEL 1-5 Allopurinol 100 mg 12/16/18 10:00 12/18/18 10:14 Zyloprim - PO 100 mg DAILY [facility] Administration Amlodipine Besylate 10 mg 12/16/18 10:00 12/18/18 10:14 Norvasc - PO 10 mg DAILY [facility] Administration Cholecalciferol 1,000 unit 12/16/18 10:00 12/18/18 10:15 Vitamin D3 - PO 1,000 unit DAILY [facility] Administration Collagenase 1 applic 12/16/18 15:45 12/18/18 10:19 Santyl - TP 1 appful DAILY [facility] Administration Protocol Furosemide 40 mg 12/16/18 10:00 12/18/18 10:14 Lasix - PO 40 mg DAILY [facility] Administration Vancomycin HCl 1,250 mg/ 250 mls @ 166.667 mls/hr 12/16/18 14:30 12/18/18 01: 30 Dextrose IVPB 166.667 mls/hr Q12H [facility] Administration Protocol Levetiracetam 500 mg 12/16/18 10:00 12/18/18 10:14 Keppra - PO Not Given DAILY [facility] Metoprolol Tartrate 50 mg 12/16/18 10:00 12/18/18 10:13 Lopressor - PO 50 mg DAILY [facility] Administration Mirtazapine 15 mg 12/15/18 22:00 12/17/18 21:30 Remeron - PO 15 mg HS [facility] Administration Multivitamins/Minerals 1 each 12/16/18 10:00 12/18/18 12:04 Theragran-M PO 1 each DAILY [facility] Administration Non-Formulary Medication 25 mg 12/16/18 10:00 Mirabegron [Myrbetriq] PO DAILY [facility] Oxycodone HCl 5 mg 12/17/18 18:27 Roxicodone - PO Q8H PRN PAIN LEVEL 4 - 6 Oxycodone HCl 10 mg 12/17/18 18:27 12/18/18 10:13 Roxicodone - PO 10 mg Q6H PRN Administration PAIN LEVEL 7 - 10 Spironolactone 25 mg 12/16/18 10:00 12/18/18 10:14 Aldactone - PO 25 mg DAILY [facility] Administration Warfarin Sodium 5 mg 12/18/18 18:00 Coumadin - PO DAILY@1800 [facility] Laboratory Results - last 24 hr 12/18/18 12/18/18 06:12 10:33 PT with INR 25.50 H INR 2.14 H Blood Type B POSITIVE S1 S2 irregular, systolic click+ lungs clear Abd- soft, NT rt knee-- effusion+, wound noted PLAN Ct knee noted pt would like to see another Ortho-- will consult with Dr Sheikh for second opinion IV antibiotics per ID resume coumadin -- spoke with Vascular-- ok to restart coumadin Santyl dressing for OR tomorrow for debridement PT eval cardiology eval for clearance Problem List - Problems (1) Infection of right knee Code(s): M00.9 - PYOGENIC ARTHRITIS, UNSPECIFIED (2) Atrial fibrillation Code(s): I48.91 - UNSPECIFIED ATRIAL FIBRILLATION Qualifiers: Atrial fibrillation type: permanent Qualified Code(s): I48.2 - Chronic atrial fibrillation (3) COPD (chronic obstructive pulmonary disease) Code(s): J44.9 - CHRONIC OBSTRUCTIVE PULMONARY DISEASE, UNSPECIFIED Qualifiers: COPD type: unspecified COPD Qualified Code(s): J44.9 - Chronic obstructive pulmonary disease, unspecified
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
[2018-12-18] MEDS ORDERED: HEPARIN NA (PORCINE) 5,000 UNITS/ML 1ML VIAL IVPUSH PRN ×2 (13:36)
[2018-12-18] MEDS ORDERED: HEPARIN - 25,000 UNIT in SODIUM CHLORIDE 495 ML IV SCH (13:45)
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
[2018-12-18] MEDS ORDERED: WARFARIN NA 5 MG TABLET (UD) PO SCH (18:00)
[2018-12-18] MEDS: MIRTAZAPINE 15 MG TABLET (FP) PO SCH (21:37)
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
[2018-12-19 08:33] LABS: INR 1.78 (0.83-1.09); PROTHROMBIN TIME (PATIENT) 21.1 SEC (9.7-13.0)
[2018-12-19] MEDS: ALLOPURINOL 100 MG TABLET (FP) PO SCH ×2 (09:30→17:21)
[2018-12-19] MEDS: METOPROLOL TARTRATE 50 MG TABLET (FP) PO SCH ×2 (09:30→17:21)
[2018-12-19] MEDS: CHOLECALCIFEROL (VIT D3) 1,000 UNIT (25 MCG) TABLET PO SCH ×2 (09:30→17:21)
[2018-12-19] MEDS: FUROSEMIDE 40 MG TABLET (FP) PO SCH ×2 (09:30→17:21)
[2018-12-19] MEDS: SPIRONOLACTONE 25 MG TABLET (FP) PO SCH (09:30)
[2018-12-19] MEDS: MULTIVITAMINS THER W-MINERALS COMBO TABLET (FP) PO SCH (09:30)
[2018-12-19] MEDS: COLLAGENASE CLOSTRIDIUM HIST. 30 GRAMS TUBE TP SCH (09:30)
[2018-12-19] MEDS: amLODIPine BESYLATE 10 MG TABLET (FP) PO SCH ×2 (09:30→17:21)
[2018-12-19] MEDS: levETIRAcetam 500 MG TABLET (FP) PO SCH ×2 (09:30→17:21)
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
--- NOTE | 2018-12-19 11:02 | PN ---
Progress Note (short form) - Note Progress Note: waiting to go to OR for debridement Vital Signs - 24 hr 12/18/18 12/18/18 12/18/18 18:00 21:00 22:00 Temperature 98.2 F 98.1 F Pulse Rate 64 56 L Respiratory 20 18 Rate Blood Pressure 121/55 L 105/56 L O2 Sat by Pulse 97 Oximetry (%) 12/19/18 12/19/18 12/19/18 06:00 09:30 12:50 Temperature 97.8 F 98.0 F 97.0 F L Pulse Rate 52 L 90 64 Respiratory 18 18 18 Rate Blood Pressure 112/56 L 127/80 132/73 O2 Sat by Pulse 94 L 97 Oximetry (%) Current Medications Generic Name Dose Route Start Last Admin Trade Name Freq PRN Reason Stop Dose Admin Acetaminophen 650 mg 12/19/18 13:19 Tylenol - PO Q4H PRN PAIN LEVEL 1-3 Allopurinol 100 mg 12/20/18 10:00 Zyloprim - PO DAILY [facility] Amlodipine Besylate 10 mg 12/20/18 10:00 Norvasc - PO DAILY [facility] Cholecalciferol 1,000 unit 12/20/18 10:00 Vitamin D3 - PO DAILY [facility] Collagenase 1 applic 12/20/18 10:00 Santyl - TP DAILY [facility] Protocol Fentanyl 25 mcg 12/19/18 14:51 Sublimaze Injection - IVPUSH 12/20/18 14:50 [id number] PRN PAIN-PACU ORDER X 4 DOSES ONLY Furosemide 40 mg 12/20/18 10:00 Lasix - PO DAILY [facility] Heparin Sodium (Porcine) 5,000 unit 12/19/18 15:01 Heparin - IVPUSH PRN PRN Heparin Heparin Sodium (Porcine) 1,000 unit 12/19/18 13:02 Heparin - IVPUSH PRN PRN Heparin HEPARIN SOD,PORK IN 0.45% NACL 25,000 units in 500 mls @ 20 mls/hr 12/19/18 15 :15 Heparin-1/2ns 25,000 Units/500 IVPB TITR [facility] Protocol 1,000 UNITS/HR Lactated Ringer's 1,000 mls @ 75 mls/hr 12/19/18 15:00 Lactated Ringers Solution IV ASDIR [facility] Levetiracetam 500 mg 12/20/18 10:00 Keppra - PO DAILY [facility] Metoprolol Tartrate 50 mg 12/20/18 10:00 Lopressor - PO DAILY [facility] Mirtazapine 15 mg 12/19/18 22:00 Remeron - PO HS [facility] Multivitamins/Minerals 1 each 12/20/18 10:00 Theragran-M PO DAILY [facility] Non-Formulary Medication 25 mg 12/20/18 10:00 Mirabegron [Myrbetriq] PO DAILY [facility] Oxycodone HCl 5 mg 12/19/18 13:19 Roxicodone - PO Q8H PRN PAIN LEVEL 4 - 6 Oxycodone HCl 10 mg 12/19/18 13:19 Roxicodone - PO Q6H PRN PAIN LEVEL 7 - 10 Spironolactone 25 mg 12/20/18 10:00 Aldactone - PO DAILY [facility] Warfarin Sodium 5 mg 12/19/18 18:00 Coumadin - PO DAILY@1800 [facility] Laboratory Results - last 24 hr 12/19/18 12/19/18 12/19/18 01:45 07:25 07:25 PT with INR 21.10 H INR 1.78 H PTT (Actin FS) 71.8 H Random Vancomycin 21.3 S1 S2 irregular, systolic click+ lungs clear Abd- soft, NT rt knee-- effusion+, wound noted PLAN Ct knee noted Ortho eval noted-- no surgical intervention IV antibiotics per ID Cardiology eval noted pt cleared for surgery she is on heparin drip resume coumadin tonight if ok with surgeon Problem List - Problems (1) Infection of right knee Code(s): M00.9 - PYOGENIC ARTHRITIS, UNSPECIFIED (2) Atrial fibrillation Code(s): I48.91 - UNSPECIFIED ATRIAL FIBRILLATION Qualifiers: Atrial fibrillation type: permanent Qualified Code(s): I48.2 - Chronic atrial fibrillation (3) COPD (chronic obstructive pulmonary disease) Code(s): J44.9 - CHRONIC OBSTRUCTIVE PULMONARY DISEASE, UNSPECIFIED Qualifiers: COPD type: unspecified COPD Qualified Code(s): J44.9 - Chronic obstructive pulmonary disease, unspecified
[2018-12-19] MEDS ORDERED: DEXAMETHASONE SOD PHOSPHATE 4 MG/1 ML VIAL ONE (11:41)
[2018-12-19] MEDS ORDERED: MIDAZOLAM HCL 2 MG/2 ML SINGLE DOSE VIAL ONE (11:41)
[2018-12-19] MEDS ORDERED: PROPOFOL 20 ML ONE (11:41)
[2018-12-19] MEDS ORDERED: LIDOCAINE HCL 1%, 10 MG/ML (20ML VIAL) ONE (12:25)
[2018-12-19] MEDS ORDERED: LIDOCAINE HCL 1%, 10 MG/ML (20ML VIAL) INF ONE ×2 (12:28)
--- NOTE | 2018-12-19 13:00 | OP ---
Operative Note - Note: Operative Date: 12/19/18 Pre-Operative Diagnosis: Right knee hematoma with eschar. Operation: Excsional debridement right knee - skin, subcutaneous tissue. Evacuation of hematoma Findings: hematoma pulse irrigation with vanco done Post-Operative Diagnosis: Same as Pre-op Surgeon: Matthew Hillman Anesthesia: Fractional Estimated Blood Loss (mls): 20 Operative Report Dictated: Yes
[2018-12-19] MEDS ORDERED: HEPARIN NA (PORCINE) 5,000 UNITS/ML 1ML VIAL IVPUSH PRN ×5 (13:02→15:01)
--- NOTE | 2018-12-19 13:08 | PN ---
Progress Note (short form) - Note Progress Note: Vascular surgery S/P debridement of right knee. Wound is open Packed with saline moist guaze. We will place vac dressing nelida CAn go home with vac. Matthew dalton DO
[2018-12-19] MEDS ORDERED: ACETAMINOPHEN 325 MG TABLET (FP) PO PRN (13:19)
[2018-12-19] MEDS ORDERED: oxyCODONE HCL 5 MG TABLET PO PRN (13:19)
--- NOTE | 2018-12-19 14:42 | OP ---
DATE OF OPERATION: 12/19/2018 PREOPERATIVE DIAGNOSIS: Right knee hematoma with eschar. POSTOPERATIVE DIAGNOSIS: Right knee hematoma with eschar. PROCEDURE: Excisional debridement, right knee skin and subcutaneous tissue; evacuation of hematoma. SURGEON: Matthew Batres DO ANESTHESIA: Fractional. BLOOD LOSS: 20 mL. The patient is a 73-year-old female who has a mechanical valve and is on anticoagulation. She took a fall at home and developed a hematoma in her right knee with an eschar now over the last 2 weeks. It was decided that she would need a debridement and evacuation of hematoma. Patient was cleared by Cardiology prior to the procedure. Patient was consented for the procedure, understanding all risks, benefits, and alternatives and then taken to the operating room. Once in the operating room, she was laid on the operative table in supine manner, and the area of the right knee and leg was prepped and draped in a sterile surgical manner. We then went and injected 15 mL of lidocaine 1% over the eschar. We then went ahead and took a number-15 blade and excised the eschar and all the subcutaneous tissue. So, skin and subcutaneous tissue were excised using a 15 blade. We then went ahead and evacuated the hematoma in the wound and we were able to undermine the skin and all the hematoma was removed. We then went ahead and used pulse irrigation. We irrigated with vancomycin infusion, and we irrigated the wound copiously. We then went ahead and took saline-moist gauze and packed it into the wound. Dry 4 x4, ABD pad, and Kerlix were placed. Patient tolerated the procedure with no complications. Tomorrow, we will change the dressing and place a VAC dressing on the wound. Patient tolerated the procedure with no complication. Patient was transferred to PACU in stable condition. MATTHEW BATRES DO NP/[id number]
[2018-12-19] MEDS: HEPARIN SOD,PORK IN 0.45% NACL 25,000 UNITS/500 ML INFUS.BAG IVPB SCH ×2 (15:15→18:09)
[2018-12-19] MEDS: LACTATED RINGERS SOLUTION 1,000 ML IV SCH (17:00)
[2018-12-19] MEDS: oxyCODONE HCL 5 MG TABLET PO PRN (17:22)
[2018-12-19] MEDS: WARFARIN NA 5 MG TABLET (UD) PO SCH (17:22)
--- NOTE | 2018-12-19 17:37 | PN ---
Progress Note, Physician History of Present Illness: S/P I&D, EVACUATION OF HEMATOMA AWAKE, ALERT IN BED NO C/O KNEE PAIN. AMBULATED TODAY AFEBRILE - Current Medication List Current Medications: Active Medications Acetaminophen (Tylenol -) 650 mg PO Q4H PRN PRN Reason: PAIN LEVEL 1-3 Allopurinol (Zyloprim -) 100 mg PO DAILY [facility] Last Admin: 12/19/18 17:21 Dose: 100 mg Amlodipine Besylate (Norvasc -) 10 mg PO DAILY [facility] Last Admin: 12/19/18 17:21 Dose: 10 mg Cholecalciferol (Vitamin D3 -) 1,000 unit PO DAILY [facility] Last Admin: 12/19/18 17:21 Dose: 1,000 unit Collagenase (Santyl -) 1 applic TP DAILY [facility]; Protocol Fentanyl (Sublimaze Injection -) 25 mcg IVPUSH [id number] PRN PRN Reason: PAIN-PACU ORDER X 4 DOSES ONLY Stop: 12/20/18 14:50 Furosemide (Lasix -) 40 mg PO DAILY [facility] Last Admin: 12/19/18 17:21 Dose: 40 mg Heparin Sodium (Porcine) (Heparin -) 5,000 unit IVPUSH PRN PRN PRN Reason: Heparin Heparin Sodium (Porcine) (Heparin -) 1,000 unit IVPUSH PRN PRN PRN Reason: Heparin HEPARIN SOD,PORK IN 0.45% NACL (Heparin-1/2ns 25,000 Units/500) 25,000 units in 500 mls @ 20 mls/hr IVPB TITR [facility]; Protocol Last Admin: 12/19/18 15:15 Dose: 1,000 units/hr, 20 mls/hr Lactated Ringer's (Lactated Ringers Solution) 1,000 mls @ 75 mls/hr IV ASDIR [facility] Levetiracetam (Keppra -) 500 mg PO DAILY [facility] Last Admin: 12/19/18 17:21 Dose: Not Given Metoprolol Tartrate (Lopressor -) 50 mg PO DAILY [facility] Last Admin: 12/19/18 17:21 Dose: 50 mg Mirtazapine (Remeron -) 15 mg PO HS [facility] Multivitamins/Minerals (Theragran-M) 1 each PO DAILY [facility] Non-Formulary Medication (Mirabegron [Myrbetriq]) 25 mg PO DAILY [facility] Oxycodone HCl (Roxicodone -) 5 mg PO Q8H PRN PRN Reason: PAIN LEVEL 4 - 6 Oxycodone HCl (Roxicodone -) 10 mg PO Q6H PRN PRN Reason: PAIN LEVEL 7 - 10 Last Admin: 12/19/18 17:22 Dose: 10 mg Spironolactone (Aldactone -) 25 mg PO DAILY [facility] Warfarin Sodium (Coumadin -) 5 mg PO DAILY@1800 [facility] Last Admin: 12/19/18 17:22 Dose: 5 mg - Objective Vital Signs: Vital Signs Temperature 97.5 F L 12/19/18 15:14 Pulse Rate 62 12/19/18 15:14 Respiratory Rate 18 12/19/18 15:14 Blood Pressure 111/70 12/19/18 15:14 O2 Sat by Pulse Oximetry (%) 96 12/19/18 14:00 Constitutional: Yes: No Distress Cardiovascular: Yes: Regular Rate and Rhythm, S1, S2 Respiratory: Yes: CTA Bilaterally Gastrointestinal: Yes: Normal Bowel Sounds, Soft. No: Tenderness Extremities: Yes: Other (POST OP DRESSING IN PLACE) Labs: CBC, BMP 12/16/18 05:50 12/16/18 05:50 INR, PTT INR 1.78 (0.83-1.09) H 12/19/18 07:25 Assessment/Plan INFECTED ULCER R KNEE ? INFECTED HEMATOMA S/P I&D S/P TKR VANCOMYCIN ON HOLD LOCAL WOUND CARE
[2018-12-19] MEDS: MIRTAZAPINE 15 MG TABLET (FP) PO SCH (21:33)
[2018-12-20] MEDS: oxyCODONE HCL 5 MG TABLET PO PRN ×2 (05:27→14:15)
[2018-12-20 07:44] LABS: ALBUMIN 3.3 g/dl (3.4-5.0); BILIRUBIN,TOTAL 0.5 mg/dL (0.2-1); BLOOD UREA NITROGEN 30.7 mg/dL (7-18); CALCIUM 9.2 mg/dL (8.5-10.1); CREATININE 1.1 mg/dL (0.55-1.3); POTASSIUM 4.3 mmol/L (3.5-5.1)
--- NOTE | 2018-12-20 08:29 | PROC ---
Procedure Note Procedure: POD #1 s/p Excsional debridement right knee - skin, subcutaneous tissue. Evacuation of hematoma Area cleansed. Black sponge placed just inside of wound border to encourage contracture. Because of location, bridged foam to mid-distal thigh and placed suction disc there. Good seal as evidenced by complete collapse of foam. No leaks when patient flex or extends knee. Tolerated procedure well. Change VAC M-W-F Can go be dc'd today w/ VAC (papers done) Tolerated procedure well.
[2018-12-20 08:43] LABS: HEMATOCRIT 35.2 % (32.4-45.2); HEMOGLOBIN 11.7 GM/dL (10.7-15.3); MCH 31.5 pg (25.7-33.7); MCHC 33.1 g/dl (32.0-36.0); MEAN CELL VOLUME 95.2 fl (80-96); MEAN PLT VOLUME 8.9 fl (7.5-11.1); PLATELET COUNT 202 K/MM3 (134-434); RDW 17.8 % (11.6-15.6); WHITE BLOOD COUNT 3.6 K/mm3 (4.0-10.0)
[2018-12-20 08:54] LABS: INR 1.55 (0.83-1.09); PROTHROMBIN TIME (PATIENT) 18.4 SEC (9.7-13.0)
[2018-12-20] MEDS: CHOLECALCIFEROL (VIT D3) 1,000 UNIT (25 MCG) TABLET PO SCH (09:39)
[2018-12-20] MEDS: ALLOPURINOL 100 MG TABLET (FP) PO SCH (09:39)
[2018-12-20] MEDS: MULTIVITAMINS THER W-MINERALS COMBO TABLET (FP) PO SCH (09:39)
[2018-12-20] MEDS: SPIRONOLACTONE 25 MG TABLET (FP) PO SCH (09:39)
[2018-12-20] MEDS: FUROSEMIDE 40 MG TABLET (FP) PO SCH (09:39)
[2018-12-20] MEDS: METOPROLOL TARTRATE 50 MG TABLET (FP) PO SCH (09:40)
[2018-12-20] MEDS: levETIRAcetam 500 MG TABLET (FP) PO SCH (09:40)
[2018-12-20] MEDS: COLLAGENASE CLOSTRIDIUM HIST. 30 GRAMS TUBE TP SCH (09:40)
[2018-12-20] MEDS: amLODIPine BESYLATE 10 MG TABLET (FP) PO SCH (09:41)
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
--- NOTE | 2018-12-20 10:48 | PN ---
Progress Note (short form) - Note Progress Note: pt seen/ examined chart reviewed all f/u noted Vital Signs Temp 97.5 F L 12/20/18 08:42 Pulse 57 L 12/20/18 08:42 Resp 16 12/20/18 08:42 BP 101/55 L 12/20/18 08:42 Pulse Ox 96 12/19/18 21:00 Intake & Output 12/19/18 12/19/18 12/20/18 11:59 23:59 11:59 Intake Total 860 1155 442 Output Total 500 Balance 860 655 442 Weight 139 lb 6 oz 193 lb 3.2 oz Intake: IV 620 260 202 HEPARIN-1/2NS 25,000 202 UNITS/500 25,000 units In 500 ml @ 1,000 UNITS/HR 20 mls/hr IVPB TITR [facility] Rx#:[id number] Heparin - 25,000 Unit In 220 Normal Saline - 495 ml @ 1,000 UNIT/HR 20 mls/hr IV TITR [facility] Rx#: [id number] Lactated Ringers Solution 160 1,000 ml @ 75 mls/hr IV ASDIR [facility] Rx#:[id number] Oral 240 895 240 Output: Urine 0 Other 500 Other: Voiding Method Toilet Toilet # Unmeasured Voids Void 2 2 Bowel Movement No No Weight Measurement Method Standing Scale Standing Scale Active Medications Acetaminophen (Tylenol -) 650 mg PO Q4H PRN PRN Reason: PAIN LEVEL 1-3 Last Admin: 12/20/18 08:07 Dose: 650 mg Allopurinol (Zyloprim -) 100 mg PO DAILY [facility] Last Admin: 12/20/18 09:39 Dose: 100 mg Amlodipine Besylate (Norvasc -) 10 mg PO DAILY [facility] Last Admin: 12/20/18 09:41 Dose: Not Given Cholecalciferol (Vitamin D3 -) 1,000 unit PO DAILY [facility] Last Admin: 12/20/18 09:39 Dose: 1,000 unit Collagenase (Santyl -) 1 applic TP DAILY [facility]; Protocol Last Admin: 12/20/18 09:40 Dose: Not Given Fentanyl (Sublimaze Injection -) 25 mcg IVPUSH [id number] PRN PRN Reason: PAIN-PACU ORDER X 4 DOSES ONLY Stop: 12/20/18 14:50 Furosemide (Lasix -) 40 mg PO DAILY [facility] Last Admin: 12/20/18 09:39 Dose: 40 mg Heparin Sodium (Porcine) (Heparin -) 5,000 unit IVPUSH PRN PRN PRN Reason: Heparin Last Admin: 12/20/18 09:41 Dose: 5,000 unit Heparin Sodium (Porcine) (Heparin -) 1,000 unit IVPUSH PRN PRN PRN Reason: Heparin Last Admin: 12/20/18 00:36 Dose: 1,000 unit HEPARIN SOD,PORK IN 0.45% NACL (Heparin-1/2ns 25,000 Units/500) 25,000 units in 500 mls @ 20 mls/hr IVPB TITR [facility]; Protocol Last Titration: 12/20/18 09:45 Dose: 1,250 units/hr, 25 mls/hr Lactated Ringer's (Lactated Ringers Solution) 1,000 mls @ 75 mls/hr IV ASDIR [facility] Last Admin: 12/19/18 17:00 Dose: Not Given Levetiracetam (Keppra -) 500 mg PO DAILY [facility] Last Admin: 12/20/18 09:40 Dose: Not Given Metoprolol Tartrate (Lopressor -) 50 mg PO DAILY [facility] Last Admin: 12/20/18 09:40 Dose: Not Given Mirtazapine (Remeron -) 15 mg PO HS [facility] Last Admin: 12/19/18 21:33 Dose: 15 mg Multivitamins/Minerals (Theragran-M) 1 each PO DAILY [facility] Last Admin: 12/20/18 09:39 Dose: 1 each Non-Formulary Medication (Mirabegron [Myrbetriq]) 25 mg PO DAILY [facility] Oxycodone HCl (Roxicodone -) 5 mg PO Q8H PRN PRN Reason: PAIN LEVEL 4 - 6 Oxycodone HCl (Roxicodone -) 10 mg PO Q6H PRN PRN Reason: PAIN LEVEL 7 - 10 Last Admin: 12/20/18 05:27 Dose: 10 mg Spironolactone (Aldactone -) 25 mg PO DAILY [facility] Last Admin: 12/20/18 09:39 Dose: 25 mg Warfarin Sodium (Coumadin -) 5 mg PO DAILY@1800 [facility] Last Admin: 12/19/18 17:22 Dose: 5 mg CBC, BMP 12/20/18 06:30 12/20/18 06:30 Microbiology 12/15/18 12:00 Gram Stain - Final Knee - Left Wound Culture - Preliminary Staphylococcus Coagulase Neg 12/15/18 12:00 Blood Culture - Preliminary Blood - Peripheral Venous NO GROWTH OBTAINED AFTER 96 HOURS, INCUBATION TO CONTINUE FOR 1 DAYS. 12/15/18 12:15 Blood Culture - Preliminary Blood - Peripheral Venous NO GROWTH OBTAINED AFTER 96 HOURS, INCUBATION TO CONTINUE FOR 1 DAYS. INR, PTT INR 1.55 (0.83-1.09) H 12/20/18 06:30 Physical Exam S1 S2 irregular, systolic click+ lungs clear Abd- soft, NT wound vac + PLAN IV antibiotics per ID wound vac heparin per inr-- till inr >2.5 will follow Problem List - Problems (1) Infection of right knee Code(s): M00.9 - PYOGENIC ARTHRITIS, UNSPECIFIED (2) Atrial fibrillation Code(s): I48.91 - UNSPECIFIED ATRIAL FIBRILLATION Qualifiers: Atrial fibrillation type: permanent Qualified Code(s): I48.2 - Chronic atrial fibrillation (3) HTN (hypertension) Code(s): I10 - ESSENTIAL (PRIMARY) HYPERTENSION Qualifiers: Hypertension type: essential hypertension Qualified Code(s): I10 - Essential (primary) hypertension (4) Rheumatic heart disease Code(s): I09.9 - RHEUMATIC HEART DISEASE, UNSPECIFIED (5) S/P aortic valve replacement with metallic valve Code(s): Z95.4 - PRESENCE OF OTHER HEART-VALVE REPLACEMENT (6) S/P mitral valve replacement with metallic valve Code(s): Z95.4 - PRESENCE OF OTHER HEART-VALVE REPLACEMENT
[2018-12-20] MEDS: WARFARIN NA 5 MG TABLET (UD) PO SCH (17:25)
[2018-12-20] MEDS: HEPARIN SOD,PORK IN 0.45% NACL 25,000 UNITS/500 ML INFUS.BAG IVPB SCH (17:26)
[2018-12-20] MEDS ORDERED: WARFARIN NA 2.5 MG TABLET (FP) PO ONE (18:00)
[2018-12-20] MEDS: MIRTAZAPINE 15 MG TABLET (FP) PO SCH (22:45)
[2018-12-20] MEDS: LACTATED RINGERS SOLUTION 1,000 ML IV SCH (22:46)
[2018-12-21 08:13] LABS: HEMATOCRIT 35.8 % (32.4-45.2); HEMOGLOBIN 11.9 GM/dL (10.7-15.3); MCHC 33.3 g/dl (32.0-36.0); MEAN CELL VOLUME 96.1 fl (80-96); MEAN PLT VOLUME 9.1 fl (7.5-11.1); PLATELET COUNT 186 K/MM3 (134-434); RBC 3.72 M/mm3 (3.60-5.2); RDW 18.1 % (11.6-15.6); WHITE BLOOD COUNT 3.5 K/mm3 (4.0-10.0)
[2018-12-21 08:50] LABS: INR 1.96 (0.83-1.09); PROTHROMBIN TIME (PATIENT) 23.3 SEC (9.7-13.0)
[2018-12-21] MEDS: oxyCODONE HCL 5 MG TABLET PO PRN ×2 (09:06→20:32)
[2018-12-21] MEDS: levETIRAcetam 500 MG TABLET (FP) PO SCH (10:17)
[2018-12-21] MEDS: METOPROLOL TARTRATE 50 MG TABLET (FP) PO SCH (10:21)
[2018-12-21] MEDS: amLODIPine BESYLATE 10 MG TABLET (FP) PO SCH (10:21)
[2018-12-21] MEDS: ALLOPURINOL 100 MG TABLET (FP) PO SCH (10:21)
[2018-12-21] MEDS: SPIRONOLACTONE 25 MG TABLET (FP) PO SCH (10:21)
[2018-12-21] MEDS: FUROSEMIDE 40 MG TABLET (FP) PO SCH (10:21)
[2018-12-21] MEDS: MULTIVITAMINS THER W-MINERALS COMBO TABLET (FP) PO SCH (10:23)
[2018-12-21] MEDS: CHOLECALCIFEROL (VIT D3) 1,000 UNIT (25 MCG) TABLET PO SCH (10:23)
[2018-12-21] MEDS: COLLAGENASE CLOSTRIDIUM HIST. 30 GRAMS TUBE TP SCH (12:41)
--- NOTE | 2018-12-21 13:26 | PN ---
Progress Note (short form) - Note Progress Note: pt seen/ examined comfortable afebrile no bleeding pain ok- under control denies constipation Vital Signs Temp 97.6 F 12/21/18 06:00 Pulse 72 12/21/18 09:00 Resp 18 12/21/18 09:00 BP 110/52 L 12/21/18 09:00 Pulse Ox 96 12/20/18 21:00 Intake & Output 12/20/18 12/21/18 12/21/18 23:59 11:59 23:59 Intake Total 1205 47.5 Balance 1205 47.5 Intake: IV 355 47.5 HEPARIN-1/2NS 25,000 355 47.5 UNITS/500 25,000 units In 500 ml @ 1,000 UNITS/HR 20 mls/hr IVPB TITR [facility] Rx#:[id number] Oral 850 Other: Voiding Method Toilet Toilet Active Medications Acetaminophen (Tylenol -) 650 mg PO Q4H PRN PRN Reason: PAIN LEVEL 1-3 Last Admin: 12/20/18 08:07 Dose: 650 mg Allopurinol (Zyloprim -) 100 mg PO DAILY [facility] Last Admin: 12/21/18 10:21 Dose: 100 mg Amlodipine Besylate (Norvasc -) 10 mg PO DAILY [facility] Last Admin: 12/21/18 10:21 Dose: 10 mg Cholecalciferol (Vitamin D3 -) 1,000 unit PO DAILY [facility] Last Admin: 12/21/18 10:23 Dose: 1,000 unit Collagenase (Santyl -) 1 applic TP DAILY [facility]; Protocol Last Admin: 12/21/18 12:41 Dose: Not Given Furosemide (Lasix -) 40 mg PO DAILY [facility] Last Admin: 12/21/18 10:21 Dose: 40 mg Heparin Sodium (Porcine) (Heparin -) 5,000 unit IVPUSH PRN PRN PRN Reason: Heparin Last Admin: 12/20/18 09:41 Dose: 5,000 unit Heparin Sodium (Porcine) (Heparin -) 1,000 unit IVPUSH PRN PRN PRN Reason: Heparin Last Admin: 12/20/18 00:36 Dose: 1,000 unit HEPARIN SOD,PORK IN 0.45% NACL (Heparin-1/2ns 25,000 Units/500) 25,000 units in 500 mls @ 20 mls/hr IVPB TITR [facility]; Protocol Last Titration: 12/21/18 04:31 Dose: 950 units/hr, 19 mls/hr Levetiracetam (Keppra -) 500 mg PO DAILY [facility] Last Admin: 12/21/18 10:17 Dose: Not Given Metoprolol Tartrate (Lopressor -) 50 mg PO DAILY [facility] Last Admin: 12/21/18 10:21 Dose: 50 mg Mirtazapine (Remeron -) 15 mg PO HS [facility] Last Admin: 12/20/18 22:45 Dose: 15 mg Multivitamins/Minerals (Theragran-M) 1 each PO DAILY [facility] Last Admin: 12/21/18 10:23 Dose: 1 each Oxybutynin Chloride (Ditropan -) 5 mg PO BID [facility] Oxycodone HCl (Roxicodone -) 5 mg PO Q8H PRN PRN Reason: PAIN LEVEL 4 - 6 Last Admin: 12/20/18 22:45 Dose: 5 mg Oxycodone HCl (Roxicodone -) 10 mg PO Q6H PRN PRN Reason: PAIN LEVEL 7 - 10 Last Admin: 12/21/18 09:06 Dose: 10 mg Spironolactone (Aldactone -) 25 mg PO DAILY [facility] Last Admin: 12/21/18 10:21 Dose: 25 mg Warfarin Sodium (Coumadin -) 5 mg PO DAILY@1800 [facility] Last Admin: 12/20/18 17:25 Dose: 5 mg CBC, BMP 12/21/18 06:00 12/20/18 06:30 INR, PTT INR 1.96 (0.83-1.09) H 12/21/18 06:00 Physical Exam Awake/ comfortable S1 S2 irregular, systolic click+ lungs clear Abd- soft, NT wound vac + PLAN stable IV antibiotics per ID wound vac heparin per inr-- till inr >2.5 Heparin as per protocol will follow Problem List - Problems (1) Infection of right knee Code(s): M00.9 - PYOGENIC ARTHRITIS, UNSPECIFIED (2) Atrial fibrillation Code(s): I48.91 - UNSPECIFIED ATRIAL FIBRILLATION Qualifiers: Atrial fibrillation type: permanent Qualified Code(s): I48.2 - Chronic atrial fibrillation (3) HTN (hypertension) Code(s): I10 - ESSENTIAL (PRIMARY) HYPERTENSION Qualifiers: Hypertension type: essential hypertension Qualified Code(s): I10 - Essential (primary) hypertension (4) Rheumatic heart disease Code(s): I09.9 - RHEUMATIC HEART DISEASE, UNSPECIFIED (5) S/P aortic valve replacement with metallic valve Code(s): Z95.4 - PRESENCE OF OTHER HEART-VALVE REPLACEMENT (6) S/P mitral valve replacement with metallic valve Code(s): Z95.4 - PRESENCE OF OTHER HEART-VALVE REPLACEMENT
[2018-12-21] MEDS: PATIENT'S OWN MEDICATION (NON-FORMULARY) (Mirabegron [Myrbetriq] 25 MG) PO SCH (13:57)
--- NOTE | 2018-12-21 18:13 | PN ---
Progress Note, Physician Chief Complaint: Pt A&Ox3; asymptomatic No palpitations, chest pain, or dyspnea. History of Present Illness: The patient is a 73-year-old female with a past medical history of HTN, heart valve replacement x2 (on aspirin and coumadin), afib, GOUT, insomnia, who presents to the ED with a RT knee wound with underlying hardware. The patient states that she sustained a scrape to the knee 1 month ago and since then it has become increasingly more painful and swollen. The wound is draining pus and has developed an eschar. The pain has progressively worsened to the point where she is having difficulty ambulating. She spends approximately 12 hours daily seated in a chair due to the pain and has been wearing diapers. She reports that she visited Dr. Mary York (PCP) 2 weeks ago, but no treatment was provided since the wound was said to be improving. The patient denies any fevers, chills, nausea, vomiting, diarrhea, constipation , or abdominal pain. Denies any chest pain, palpitations, or shortness of breath. Denies any urinary symptoms. Denies any weakness, dizziness, or light headedness. Allergies: Penicillins Social History: None reported. Surgical History: RT knee replacement (performed by Dr. Davison), RT shoulder repair, hysterectomy, heart valve replacement x2 (1998/2005). PCP: Dr. Mary York - Current Medication List Current Medications: Active Medications Acetaminophen (Tylenol -) 650 mg PO Q4H PRN PRN Reason: PAIN LEVEL 1-3 Last Admin: 12/20/18 08:07 Dose: 650 mg Allopurinol (Zyloprim -) 100 mg PO DAILY [facility] Last Admin: 12/21/18 10:21 Dose: 100 mg Amlodipine Besylate (Norvasc -) 10 mg PO DAILY [facility] Last Admin: 12/21/18 10:21 Dose: 10 mg Cholecalciferol (Vitamin D3 -) 1,000 unit PO DAILY [facility] Last Admin: 12/21/18 10:23 Dose: 1,000 unit Collagenase (Santyl -) 1 applic TP DAILY [facility]; Protocol Last Admin: 12/21/18 12:41 Dose: Not Given Furosemide (Lasix -) 40 mg PO DAILY [facility] Last Admin: 12/21/18 10:21 Dose: 40 mg Heparin Sodium (Porcine) (Heparin -) 5,000 unit IVPUSH PRN PRN PRN Reason: Heparin Last Admin: 12/20/18 09:41 Dose: 5,000 unit Heparin Sodium (Porcine) (Heparin -) 1,000 unit IVPUSH PRN PRN PRN Reason: Heparin Last Admin: 12/20/18 00:36 Dose: 1,000 unit HEPARIN SOD,PORK IN 0.45% NACL (Heparin-1/2ns 25,000 Units/500) 25,000 units in 500 mls @ 20 mls/hr IVPB TITR [facility]; Protocol Last Titration: 12/21/18 04:31 Dose: 950 units/hr, 19 mls/hr Levetiracetam (Keppra -) 500 mg PO DAILY [facility] Last Admin: 12/21/18 10:17 Dose: Not Given Metoprolol Tartrate (Lopressor -) 50 mg PO DAILY [facility] Last Admin: 12/21/18 10:21 Dose: 50 mg Mirtazapine (Remeron -) 15 mg PO HS [facility] Last Admin: 12/20/18 22:45 Dose: 15 mg Multivitamins/Minerals (Theragran-M) 1 each PO DAILY [facility] Last Admin: 12/21/18 10:23 Dose: 1 each Oxybutynin Chloride (Ditropan -) 5 mg PO BID [facility] Oxycodone HCl (Roxicodone -) 5 mg PO Q8H PRN PRN Reason: PAIN LEVEL 4 - 6 Last Admin: 12/20/18 22:45 Dose: 5 mg Oxycodone HCl (Roxicodone -) 10 mg PO Q6H PRN PRN Reason: PAIN LEVEL 7 - 10 Last Admin: 12/21/18 09:06 Dose: 10 mg Spironolactone (Aldactone -) 25 mg PO DAILY [facility] Last Admin: 12/21/18 10:21 Dose: 25 mg Warfarin Sodium (Coumadin -) 5 mg PO DAILY@1800 [facility] Last Admin: 12/20/18 17:25 Dose: 5 mg - Objective Vital Signs: Vital Signs Temperature 98.7 F 12/21/18 14:45 Pulse Rate 52 L 12/21/18 14:45 Respiratory Rate 18 12/21/18 14:45 Blood Pressure 110/46 L 12/21/18 14:45 O2 Sat by Pulse Oximetry (%) 98 12/21/18 09:00 Constitutional: Yes: Calm Eyes: Yes: WNL HENT: Yes: WNL Neck: Yes: WNL Cardiovascular: Yes: Pulse Irregular, S1 (vaies in intensity), S2 Respiratory: Yes: Regular Gastrointestinal: Yes: Soft ...Rectal Exam: Yes: Deferred Genitourinary: No: Anuria Breast(s): Yes: WNL Musculoskeletal: Yes: Muscle Weakness Extremities: Yes: Other (right shoulder old surgical scar; right knee sp debridemet; VAC) Edema: No Peripheral Pulses WNL: Yes Integumentary: Yes: Bruising Neurological: Yes: WNL Psychiatric: Yes: WNL Labs: CBC, BMP 12/21/18 06:00 12/20/18 06:30 INR, PTT INR 1.96 (0.83-1.09) H 12/21/18 06:00 Problem List - Problems (1) Traumatic hematoma of right knee Assessment/Plan: s/p debridemet; VAC. Code(s): S80.01XA - CONTUSION OF RIGHT KNEE, INITIAL ENCOUNTER Qualifiers: Encounter type: subsequent encounter Qualified Code(s): S80.01XD - Contusion of right knee, subsequent encounter (2) Atrial fibrillation Assessment/Plan: On metoprolol (consider bid tartrate dose, or change to once-daily ER) On warfarin (AF; mechanical valves); IV heparin until INR 3-3.5 Code(s): I48.91 - UNSPECIFIED ATRIAL FIBRILLATION Qualifiers: Atrial fibrillation type: permanent Qualified Code(s): I48.2 - Chronic atrial fibrillation (3) Cardiac pacemaker in situ Code(s): Z95.0 - PRESENCE OF CARDIAC PACEMAKER (4) HTN (hypertension) Code(s): I10 - ESSENTIAL (PRIMARY) HYPERTENSION Qualifiers: Hypertension type: essential hypertension Qualified Code(s): I10 - Essential (primary) hypertension (5) Osteoarthritis of right knee Code(s): M17.11 - UNILATERAL PRIMARY OSTEOARTHRITIS, RIGHT KNEE Qualifiers: Osteoarthritis type: primary Qualified Code(s): M17.11 - Unilateral primary osteoarthritis, right knee (6) Rheumatic heart disease Code(s): I09.9 - RHEUMATIC HEART DISEASE, UNSPECIFIED (7) S/P aortic valve replacement with metallic valve Code(s): Z95.4 - PRESENCE OF OTHER HEART-VALVE REPLACEMENT (8) S/P mitral valve replacement with metallic valve Code(s): Z95.4 - PRESENCE OF OTHER HEART-VALVE REPLACEMENT
[2018-12-21] MEDS: WARFARIN NA 5 MG TABLET (UD) PO SCH (18:35)
[2018-12-21] MEDS: OXYBUTYNIN CHLORIDE 5 MG TABLET PO SCH (22:08)
[2018-12-21] MEDS: MIRTAZAPINE 15 MG TABLET (FP) PO SCH (22:08)
[2018-12-21] MEDS: HEPARIN SOD,PORK IN 0.45% NACL 25,000 UNITS/500 ML INFUS.BAG IVPB SCH (23:44)
[2018-12-22 07:48] LABS: HEMATOCRIT 35.1 % (32.4-45.2); HEMOGLOBIN 11.4 GM/dL (10.7-15.3); MCH 31.3 pg (25.7-33.7); MCHC 32.7 g/dl (32.0-36.0); MEAN PLT VOLUME 9.1 fl (7.5-11.1); RBC 3.65 M/mm3 (3.60-5.2); RDW 18.1 % (11.6-15.6); WHITE BLOOD COUNT 3.4 K/mm3 (4.0-10.0)
[2018-12-22] MEDS: oxyCODONE HCL 5 MG TABLET PO PRN ×2 (08:06→16:01)
[2018-12-22 08:46] LABS: PLATELET COUNT 190 K/MM3 (134-434)
[2018-12-22 09:28] LABS: INR 2.35 (0.83-1.09)
[2018-12-22] MEDS: ALLOPURINOL 100 MG TABLET (FP) PO SCH (10:15)
[2018-12-22] MEDS: levETIRAcetam 500 MG TABLET (FP) PO SCH (10:15)
[2018-12-22] MEDS: CHOLECALCIFEROL (VIT D3) 1,000 UNIT (25 MCG) TABLET PO SCH (10:15)
[2018-12-22] MEDS: amLODIPine BESYLATE 10 MG TABLET (FP) PO SCH (10:15)
[2018-12-22] MEDS: METOPROLOL TARTRATE 50 MG TABLET (FP) PO SCH (10:15)
[2018-12-22] MEDS: MULTIVITAMINS THER W-MINERALS COMBO TABLET (FP) PO SCH (10:15)
[2018-12-22] MEDS: SPIRONOLACTONE 25 MG TABLET (FP) PO SCH (10:15)
[2018-12-22] MEDS: OXYBUTYNIN CHLORIDE 5 MG TABLET PO SCH ×2 (10:16→21:13)
[2018-12-22] MEDS: FUROSEMIDE 40 MG TABLET (FP) PO SCH (10:16)
[2018-12-22] MEDS: COLLAGENASE CLOSTRIDIUM HIST. 30 GRAMS TUBE TP SCH (10:19)
[2018-12-22] MEDS: HEPARIN SOD,PORK IN 0.45% NACL 25,000 UNITS/500 ML INFUS.BAG IVPB SCH ×2 (11:30→17:37)
--- NOTE | 2018-12-22 11:55 | PN ---
Progress Note (short form) - Note Progress Note: pt seen/ examined comfortable afebrile no bleeding pain ok- under control denies constipation no new issues Vital Signs Temp 97.5 F L 12/22/18 10:00 Pulse 66 12/22/18 10:00 Resp 19 12/22/18 10:00 BP 122/86 12/22/18 10:00 Pulse Ox 98 12/21/18 21:00 Intake & Output 12/21/18 12/21/18 12/22/18 11:59 23:59 11:59 Intake Total 47.5 1568 578 Balance 47.5 1568 578 Intake: IV 47.5 228 228 HEPARIN-1/2NS 25,000 47.5 228 228 UNITS/500 25,000 units In 500 ml @ 1,000 UNITS/HR 20 mls/hr IVPB TITR [facility] Rx#:[id number] Oral 1340 350 Other: Voiding Method Toilet Bedside Commode # Unmeasured Voids Void 1 Bowel Movement No No Active Medications Acetaminophen (Tylenol -) 650 mg PO Q4H PRN PRN Reason: PAIN LEVEL 1-3 Last Admin: 12/20/18 08:07 Dose: 650 mg Allopurinol (Zyloprim -) 100 mg PO DAILY [facility] Last Admin: 12/21/18 10:21 Dose: 100 mg Amlodipine Besylate (Norvasc -) 10 mg PO DAILY [facility] Last Admin: 12/21/18 10:21 Dose: 10 mg Cholecalciferol (Vitamin D3 -) 1,000 unit PO DAILY [facility] Last Admin: 12/21/18 10:23 Dose: 1,000 unit Collagenase (Santyl -) 1 applic TP DAILY [facility]; Protocol Last Admin: 12/21/18 12:41 Dose: Not Given Furosemide (Lasix -) 40 mg PO DAILY [facility] Last Admin: 12/21/18 10:21 Dose: 40 mg Heparin Sodium (Porcine) (Heparin -) 5,000 unit IVPUSH PRN PRN PRN Reason: Heparin Last Admin: 12/20/18 09:41 Dose: 5,000 unit Heparin Sodium (Porcine) (Heparin -) 1,000 unit IVPUSH PRN PRN PRN Reason: Heparin Last Admin: 12/20/18 00:36 Dose: 1,000 unit HEPARIN SOD,PORK IN 0.45% NACL (Heparin-1/2ns 25,000 Units/500) 25,000 units in 500 mls @ 20 mls/hr IVPB TITR [facility]; Protocol Last Titration: 12/21/18 04:31 Dose: 950 units/hr, 19 mls/hr Levetiracetam (Keppra -) 500 mg PO DAILY [facility] Last Admin: 12/21/18 10:17 Dose: Not Given Metoprolol Tartrate (Lopressor -) 50 mg PO DAILY [facility] Last Admin: 12/21/18 10:21 Dose: 50 mg Mirtazapine (Remeron -) 15 mg PO HS [facility] Last Admin: 12/20/18 22:45 Dose: 15 mg Multivitamins/Minerals (Theragran-M) 1 each PO DAILY [facility] Last Admin: 12/21/18 10:23 Dose: 1 each Oxybutynin Chloride (Ditropan -) 5 mg PO BID [facility] Oxycodone HCl (Roxicodone -) 5 mg PO Q8H PRN PRN Reason: PAIN LEVEL 4 - 6 Last Admin: 12/20/18 22:45 Dose: 5 mg Oxycodone HCl (Roxicodone -) 10 mg PO Q6H PRN PRN Reason: PAIN LEVEL 7 - 10 Last Admin: 12/21/18 09:06 Dose: 10 mg Spironolactone (Aldactone -) 25 mg PO DAILY [facility] Last Admin: 12/21/18 10:21 Dose: 25 mg Warfarin Sodium (Coumadin -) 5 mg PO DAILY@1800 [facility] Last Admin: 12/20/18 17:25 Dose: 5 mg CBC, BMP 12/22/18 06:10 12/20/18 06:30 INR, PTT INR 2.35 (0.83-1.09) H 12/22/18 06:06 Physical Exam Awake/ comfortable S1 S2 irregular, systolic click+ lungs clear Abd- soft, NT wound vac + PLAN stable IV antibiotics per ID wound vac heparin per inr-- till inr >2.5 Heparin as per protocol oob - chair physical therapy d/c planning likely tomorrow-- pt wants to go home elvin will follow. Problem List - Problems (1) Infection of right knee Code(s): M00.9 - PYOGENIC ARTHRITIS, UNSPECIFIED (2) Atrial fibrillation Code(s): I48.91 - UNSPECIFIED ATRIAL FIBRILLATION Qualifiers: Atrial fibrillation type: permanent Qualified Code(s): I48.2 - Chronic atrial fibrillation (3) HTN (hypertension) Code(s): I10 - ESSENTIAL (PRIMARY) HYPERTENSION Qualifiers: Hypertension type: essential hypertension Qualified Code(s): I10 - Essential (primary) hypertension (4) Rheumatic heart disease Code(s): I09.9 - RHEUMATIC HEART DISEASE, UNSPECIFIED (5) S/P aortic valve replacement with metallic valve Code(s): Z95.4 - PRESENCE OF OTHER HEART-VALVE REPLACEMENT (6) S/P mitral valve replacement with metallic valve Code(s): Z95.4 - PRESENCE OF OTHER HEART-VALVE REPLACEMENT
[2018-12-22] MEDS ORDERED: oxyCODONE HCL 5 MG TABLET PO PRN (14:34)
[2018-12-22] MEDS: WARFARIN NA 5 MG TABLET (UD) PO SCH (17:08)
[2018-12-22] MEDS: MIRTAZAPINE 15 MG TABLET (FP) PO SCH (21:13)
--- NOTE | 2018-12-22 22:03 | PN ---
Progress Note, Physician Chief Complaint: Pt A&Ox3; feeling better; wants to go home. History of Present Illness: The patient is a 73-year-old black female with a past medical history of HTN, heart valve replacement x2 (on aspirin and coumadin), afib, GOUT, insomnia, who presents to the ED with a RT knee wound with underlying hardware. The patient states that she sustained a scrape to the knee 1 month ago and since then it has become increasingly more painful and swollen. The wound is draining pus and has developed an eschar. The pain has progressively worsened to the point where she is having difficulty ambulating. She spends approximately 12 hours daily seated in a chair due to the pain and has been wearing diapers. She reports that she visited Dr. Mary York (PCP) 2 weeks ago, but no treatment was provided since the wound was said to be improving. The patient denies any fevers, chills, nausea, vomiting, diarrhea, constipation , or abdominal pain. Denies any chest pain, palpitations, or shortness of breath. Denies any urinary symptoms. Denies any weakness, dizziness, or light headedness. Allergies: Penicillins Social History: None reported. Surgical History: RT knee replacement (performed by Dr. Davison), RT shoulder repair, hysterectomy, heart valve replacement x2 (1998/2005). PCP: Dr. Mary York - Current Medication List Current Medications: Active Medications Acetaminophen (Tylenol -) 650 mg PO Q4H PRN PRN Reason: PAIN LEVEL 1-3 Last Admin: 12/20/18 08:07 Dose: 650 mg Allopurinol (Zyloprim -) 100 mg PO DAILY [facility] Last Admin: 12/22/18 10:15 Dose: 100 mg Amlodipine Besylate (Norvasc -) 10 mg PO DAILY [facility] Last Admin: 12/22/18 10:15 Dose: 10 mg Cholecalciferol (Vitamin D3 -) 1,000 unit PO DAILY [facility] Last Admin: 12/22/18 10:15 Dose: 1,000 unit Collagenase (Santyl -) 1 applic TP DAILY [facility]; Protocol Last Admin: 12/22/18 10:19 Dose: Not Given Furosemide (Lasix -) 40 mg PO DAILY [facility] Last Admin: 12/22/18 10:16 Dose: 40 mg Heparin Sodium (Porcine) (Heparin -) 5,000 unit IVPUSH PRN PRN PRN Reason: Heparin Last Admin: 12/20/18 09:41 Dose: 5,000 unit Heparin Sodium (Porcine) (Heparin -) 1,000 unit IVPUSH PRN PRN PRN Reason: Heparin Last Admin: 12/20/18 00:36 Dose: 1,000 unit HEPARIN SOD,PORK IN 0.45% NACL (Heparin-1/2ns 25,000 Units/500) 25,000 units in 500 mls @ 20 mls/hr IVPB TITR [facility]; Protocol Last Titration: 12/22/18 18:13 Dose: 600 units/hr, 12 mls/hr Levetiracetam (Keppra -) 500 mg PO DAILY [facility] Last Admin: 12/22/18 10:15 Dose: 500 mg Metoprolol Tartrate (Lopressor -) 50 mg PO DAILY [facility] Last Admin: 12/22/18 10:15 Dose: 50 mg Mirtazapine (Remeron -) 15 mg PO HS [facility] Last Admin: 12/22/18 21:13 Dose: 15 mg Multivitamins/Minerals (Theragran-M) 1 each PO DAILY [facility] Last Admin: 12/22/18 10:15 Dose: 1 each Oxybutynin Chloride (Ditropan -) 5 mg PO BID [facility] Last Admin: 12/22/18 21:13 Dose: 5 mg Oxycodone HCl (Roxicodone -) 5 mg PO Q8H PRN PRN Reason: PAIN 4-6 Oxycodone HCl (Roxicodone -) 10 mg PO Q6H PRN PRN Reason: PAIN 7-10 Last Admin: 12/22/18 16:01 Dose: 10 mg Spironolactone (Aldactone -) 25 mg PO DAILY [facility] Last Admin: 12/22/18 10:15 Dose: 25 mg Warfarin Sodium (Coumadin -) 5 mg PO DAILY@1800 [facility] Last Admin: 12/22/18 17:08 Dose: 5 mg - Objective Vital Signs: Vital Signs Temperature 98.1 F 12/22/18 20:37 Pulse Rate 53 L 12/22/18 20:37 Respiratory Rate 18 12/22/18 20:37 Blood Pressure 110/59 L 12/22/18 20:37 O2 Sat by Pulse Oximetry (%) 98 12/22/18 09:00 Constitutional: Yes: Calm Eyes: Yes: WNL HENT: Yes: WNL Cardiovascular: Yes: S1 (varies in intensity), S2 Respiratory: Yes: Regular Gastrointestinal: Yes: Soft ...Rectal Exam: Yes: Deferred Genitourinary: No: Anuria Breast(s): Yes: WNL Musculoskeletal: Yes: Muscle Weakness Extremities: Yes: Cool Edema: No Peripheral Pulses WNL: Yes Integumentary: Yes: WNL Neurological: Yes: Alert, Oriented Psychiatric: Yes: WNL Labs: CBC, BMP 12/22/18 06:10 12/20/18 06:30 INR, PTT INR 2.35 (0.83-1.09) H 12/22/18 06:06 Abnormal Lab Results 12/22/18 12/22/18 12/22/18 06:06 06:10 06:10 WBC 3.4 L RDW 18.1 H PT with INR 28.00 H INR 2.35 H PTT (Actin FS) 182.2 H 12/22/18 16:45 WBC RDW PT with INR INR PTT (Actin FS) 76.7 H Problem List - Problems (1) Traumatic hematoma of right knee Assessment/Plan: s/p debridement; VAC. Code(s): S80.01XA - CONTUSION OF RIGHT KNEE, INITIAL ENCOUNTER Qualifiers: Encounter type: subsequent encounter Qualified Code(s): S80.01XD - Contusion of right knee, subsequent encounter (2) Atrial fibrillation Assessment/Plan: On metoprolol (consider bid tartrate dose, or change to once-daily ER) On warfarin (AF; mechanical valves); IV heparin until INR 2.5-3.5 Code(s): I48.91 - UNSPECIFIED ATRIAL FIBRILLATION Qualifiers: Atrial fibrillation type: permanent Qualified Code(s): I48.2 - Chronic atrial fibrillation (3) Cardiac pacemaker in situ Assessment/Plan: AF/ SSS. Code(s): Z95.0 - PRESENCE OF CARDIAC PACEMAKER (4) HTN (hypertension) Assessment/Plan: On metoprolol, amlodiipine, furosemide, spironolactone. BP presently well-controlled. Code(s): I10 - ESSENTIAL (PRIMARY) HYPERTENSION Qualifiers: Hypertension type: essential hypertension Qualified Code(s): I10 - Essential (primary) hypertension (5) Osteoarthritis of right knee Assessment/Plan: s/p debridement, evacuation of hematoma; VAC. Code(s): M17.11 - UNILATERAL PRIMARY OSTEOARTHRITIS, RIGHT KNEE Qualifiers: Osteoarthritis type: primary Qualified Code(s): M17.11 - Unilateral primary osteoarthritis, right knee (6) Rheumatic heart disease Assessment/Plan: s/p MVR and AoVR. Code(s): I09.9 - RHEUMATIC HEART DISEASE, UNSPECIFIED (7) S/P aortic valve replacement with metallic valve Assessment/Plan: on IV heparin and warfarin. Code(s): Z95.4 - PRESENCE OF OTHER HEART-VALVE REPLACEMENT (8) S/P mitral valve replacement with metallic valve Code(s): Z95.4 - PRESENCE OF OTHER HEART-VALVE REPLACEMENT
[2018-12-23] MEDS: oxyCODONE HCL 5 MG TABLET PO PRN ×3 (06:54→20:33)
[2018-12-23 07:45] LABS: HEMATOCRIT 36.9 % (32.4-45.2); HEMOGLOBIN 12.2 GM/dL (10.7-15.3); MCH 31.7 pg (25.7-33.7); MCHC 33.1 g/dl (32.0-36.0); MEAN CELL VOLUME 95.7 fl (80-96); MEAN PLT VOLUME 9.3 fl (7.5-11.1); RBC 3.85 M/mm3 (3.60-5.2); RDW 18.3 % (11.6-15.6); WHITE BLOOD COUNT 3.4 K/mm3 (4.0-10.0)
[2018-12-23 09:20] LABS: PLATELET COUNT 188 K/MM3 (134-434)
--- NOTE | 2018-12-23 10:12 | PN ---
Progress Note (short form) - Note Progress Note: pt seen/ examined. comfortable Vital Signs Temp 98.0 F 12/23/18 06:56 Pulse 52 L 12/23/18 06:56 Resp 18 12/23/18 06:56 BP 122/57 L 12/23/18 06:56 Pulse Ox 98 12/22/18 09:00 Intake & Output 12/22/18 12/22/18 12/23/18 11:59 23:59 11:59 Intake Total 578 881 144 Balance 578 881 144 Weight 196 lb Intake: IV 228 156 144 HEPARIN-1/2NS 25,000 228 156 144 UNITS/500 25,000 units In 500 ml @ 1,000 UNITS/HR 20 mls/hr IVPB TITR [facility] Rx#:[id number] Oral 350 725 Other: Voiding Method Bedside Commode Bedside Commode Bedside Commode # Unmeasured Voids Void 1 1 Bowel Movement No No No Weight Measurement Method Standing Scale Active Medications Acetaminophen (Tylenol -) 650 mg PO Q4H PRN PRN Reason: PAIN LEVEL 1-3 Last Admin: 12/20/18 08:07 Dose: 650 mg Allopurinol (Zyloprim -) 100 mg PO DAILY [facility] Last Admin: 12/22/18 10:15 Dose: 100 mg Amlodipine Besylate (Norvasc -) 10 mg PO DAILY [facility] Last Admin: 12/22/18 10:15 Dose: 10 mg Cholecalciferol (Vitamin D3 -) 1,000 unit PO DAILY [facility] Last Admin: 12/22/18 10:15 Dose: 1,000 unit Collagenase (Santyl -) 1 applic TP DAILY [facility]; Protocol Last Admin: 12/22/18 10:19 Dose: Not Given Furosemide (Lasix -) 40 mg PO DAILY [facility] Last Admin: 12/22/18 10:16 Dose: 40 mg Heparin Sodium (Porcine) (Heparin -) 5,000 unit IVPUSH PRN PRN PRN Reason: Heparin Last Admin: 12/20/18 09:41 Dose: 5,000 unit Heparin Sodium (Porcine) (Heparin -) 1,000 unit IVPUSH PRN PRN PRN Reason: Heparin Last Admin: 12/20/18 00:36 Dose: 1,000 unit HEPARIN SOD,PORK IN 0.45% NACL (Heparin-1/2ns 25,000 Units/500) 25,000 units in 500 mls @ 20 mls/hr IVPB TITR [facility]; Protocol Last Titration: 12/22/18 18:13 Dose: 600 units/hr, 12 mls/hr Levetiracetam (Keppra -) 500 mg PO DAILY [facility] Last Admin: 12/22/18 10:15 Dose: 500 mg Metoprolol Tartrate (Lopressor -) 50 mg PO DAILY [facility] Last Admin: 12/22/18 10:15 Dose: 50 mg Mirtazapine (Remeron -) 15 mg PO HS [facility] Last Admin: 12/22/18 21:13 Dose: 15 mg Multivitamins/Minerals (Theragran-M) 1 each PO DAILY [facility] Last Admin: 12/22/18 10:15 Dose: 1 each Oxybutynin Chloride (Ditropan -) 5 mg PO BID [facility] Last Admin: 12/22/18 21:13 Dose: 5 mg Oxycodone HCl (Roxicodone -) 5 mg PO Q8H PRN PRN Reason: PAIN 4-6 Oxycodone HCl (Roxicodone -) 10 mg PO Q6H PRN PRN Reason: PAIN 7-10 Last Admin: 12/23/18 06:54 Dose: 10 mg Spironolactone (Aldactone -) 25 mg PO DAILY [facility] Last Admin: 12/22/18 10:15 Dose: 25 mg Warfarin Sodium (Coumadin -) 5 mg PO DAILY@1800 [facility] Last Admin: 12/22/18 17:08 Dose: 5 mg CBC, BMP 12/23/18 06:30 12/20/18 06:30 inr --Pending Physical Exam Awake/ comfortable S1 S2 irregular, systolic click+ lungs clear Abd- soft, NT wound vac + PLAN stable IV antibiotics per ID wound vac heparin per inr-- till inr >2.5 Heparin as per protocol oob - chair physical therapy d/c planning discussed with case management director-- working with Insurance Medically stable for d/c -- pending inr -- today -- Problem List - Problems (1) Infection of right knee Code(s): M00.9 - PYOGENIC ARTHRITIS, UNSPECIFIED (2) Atrial fibrillation Code(s): I48.91 - UNSPECIFIED ATRIAL FIBRILLATION Qualifiers: Atrial fibrillation type: permanent Qualified Code(s): I48.2 - Chronic atrial fibrillation (3) HTN (hypertension) Code(s): I10 - ESSENTIAL (PRIMARY) HYPERTENSION Qualifiers: Hypertension type: essential hypertension Qualified Code(s): I10 - Essential (primary) hypertension (4) Rheumatic heart disease Code(s): I09.9 - RHEUMATIC HEART DISEASE, UNSPECIFIED (5) S/P aortic valve replacement with metallic valve Code(s): Z95.4 - PRESENCE OF OTHER HEART-VALVE REPLACEMENT (6) S/P mitral valve replacement with metallic valve Code(s): Z95.4 - PRESENCE OF OTHER HEART-VALVE REPLACEMENT
[2018-12-23 10:26] LABS: INR 2.63 (0.83-1.09); PROTHROMBIN TIME (PATIENT) 31.3 SEC (9.7-13.0)
[2018-12-23] MEDS: OXYBUTYNIN CHLORIDE 5 MG TABLET PO SCH ×2 (10:31→21:24)
[2018-12-23] MEDS: SPIRONOLACTONE 25 MG TABLET (FP) PO SCH (10:31)
[2018-12-23] MEDS: ALLOPURINOL 100 MG TABLET (FP) PO SCH (10:31)
[2018-12-23] MEDS: amLODIPine BESYLATE 10 MG TABLET (FP) PO SCH (10:31)
[2018-12-23] MEDS: METOPROLOL TARTRATE 50 MG TABLET (FP) PO SCH (10:31)
[2018-12-23] MEDS: MULTIVITAMINS THER W-MINERALS COMBO TABLET (FP) PO SCH (10:31)
[2018-12-23] MEDS: FUROSEMIDE 40 MG TABLET (FP) PO SCH (10:31)
[2018-12-23] MEDS: levETIRAcetam 500 MG TABLET (FP) PO SCH (10:31)
[2018-12-23] MEDS: CHOLECALCIFEROL (VIT D3) 1,000 UNIT (25 MCG) TABLET PO SCH (10:31)
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
[2018-12-23] MEDS: COLLAGENASE CLOSTRIDIUM HIST. 30 GRAMS TUBE TP SCH (11:13)
--- NOTE | 2018-12-23 16:29 | PATH ---
Surgical Pathology Report Patient Name: VERNON VALE Med. Rec. #: [id number] /Age/Gender: 1945 (Age: 73) / F Account: [id number] Location: [address] [place] [address]/[facility] Taken: 12/19/2018 Received: 12/20/2018 Reported: 12/23/2018 Physicians: Matthew Hillman Specimen(s) Received TISSUE OF ESCHAR RIGHT KNEE Clinical History Hematoma right knee Final Diagnosis ESCHAR RIGHT KNEE, EXCISION: BLOOD CLOT AND NECROTIC FIBROCONNECTIVE TISSUE WITH ABSCESS FORMATION. Electronically Signed Ashley Tena M.D. Gross Description Received in formalin labeled "eschar right knee," is a 3.7 x 3.0 cm black, ovoid portion of unoriented skin with attached underlying blood clot. A site safety representative section is submitted in one cassette. /12/20/201812/20/2018
[2018-12-23] MEDS: WARFARIN NA 5 MG TABLET (UD) PO SCH (18:11)
[2018-12-23] MEDS: MIRTAZAPINE 15 MG TABLET (FP) PO SCH (21:24)
[2018-12-24] MEDS: oxyCODONE HCL 5 MG TABLET PO PRN ×3 (06:28→21:18)
[2018-12-24 07:59] LABS: HEMATOCRIT 36.2 % (32.4-45.2); HEMOGLOBIN 12.1 GM/dL (10.7-15.3); MCH 32.1 pg (25.7-33.7); MCHC 33.5 g/dl (32.0-36.0); MEAN CELL VOLUME 95.8 fl (80-96); MEAN PLT VOLUME 9.1 fl (7.5-11.1); PLATELET COUNT 177 K/MM3 (134-434); RBC 3.78 M/mm3 (3.60-5.2); RDW 18.2 % (11.6-15.6); WHITE BLOOD COUNT 4.2 K/mm3 (4.0-10.0)
[2018-12-24] MEDS: OXYBUTYNIN CHLORIDE 5 MG TABLET PO SCH ×2 (10:58→21:18)
[2018-12-24] MEDS: METOPROLOL TARTRATE 50 MG TABLET (FP) PO SCH ×2 (10:58→12:39)
[2018-12-24] MEDS: amLODIPine BESYLATE 10 MG TABLET (FP) PO SCH ×2 (10:58→12:39)
[2018-12-24] MEDS: MULTIVITAMINS THER W-MINERALS COMBO TABLET (FP) PO SCH (10:58)
[2018-12-24] MEDS: levETIRAcetam 500 MG TABLET (FP) PO SCH ×2 (10:58→11:01)
[2018-12-24] MEDS: ALLOPURINOL 100 MG TABLET (FP) PO SCH (10:58)
[2018-12-24] MEDS: CHOLECALCIFEROL (VIT D3) 1,000 UNIT (25 MCG) TABLET PO SCH (10:58)
[2018-12-24] MEDS: FUROSEMIDE 40 MG TABLET (FP) PO SCH ×2 (10:59→12:39)
[2018-12-24] MEDS: SPIRONOLACTONE 25 MG TABLET (FP) PO SCH ×2 (10:59→12:39)
[2018-12-24] MEDS: COLLAGENASE CLOSTRIDIUM HIST. 30 GRAMS TUBE TP SCH (12:40)
[2018-12-24 16:49] VITALS: BMI 31.4
[2018-12-24 17:09] LABS: INR 2.49 (0.83-1.09); PROTHROMBIN TIME (PATIENT) 29.6 SEC (9.7-13.0)
--- NOTE | 2018-12-24 18:05 | PN ---
Progress Note (short form) - Note Progress Note: events noted on wound vac has pain in knee Vital Signs - 24 hr 12/23/18 12/23/18 12/24/18 21:00 22:00 06:00 Temperature 97.8 F Pulse Rate 52 L 54 L Respiratory 18 18 18 Rate Blood Pressure 120/60 112/60 O2 Sat by Pulse 94 L Oximetry (%) 12/24/18 12/24/18 12/24/18 10:54 11:55 12:37 Temperature 98.3 F Pulse Rate 65 65 Respiratory 20 20 Rate Blood Pressure 101/53 L 120/71 O2 Sat by Pulse Oximetry (%) 12/24/18 15:00 Temperature 98.4 F Pulse Rate 50 L Respiratory 20 Rate Blood Pressure 101/57 L O2 Sat by Pulse Oximetry (%) Current Medications Generic Name Dose Route Start Last Admin Trade Name Freq PRN Reason Stop Dose Admin Acetaminophen 650 mg 12/19/18 13:19 12/20/18 08:07 Tylenol - PO 650 mg Q4H PRN Administration PAIN LEVEL 1-3 Allopurinol 100 mg 12/20/18 10:00 12/24/18 10:58 Zyloprim - PO 100 mg DAILY [facility] Administration Amlodipine Besylate 10 mg 12/20/18 10:00 12/24/18 12:39 Norvasc - PO 10 mg DAILY [facility] Administration Cholecalciferol 1,000 unit 12/20/18 10:00 12/24/18 10:58 Vitamin D3 - PO 1,000 unit DAILY [facility] Administration Collagenase 1 applic 12/20/18 10:00 12/24/18 12:40 Santyl - TP Not Given DAILY [facility] Protocol Furosemide 40 mg 12/20/18 10:00 12/24/18 12:39 Lasix - PO 40 mg DAILY [facility] Administration Levetiracetam 500 mg 12/20/18 10:00 12/24/18 11:01 Keppra - PO Not Given DAILY [facility] Metoprolol Tartrate 50 mg 12/20/18 10:00 12/24/18 12:39 Lopressor - PO 50 mg DAILY [facility] Administration Mirtazapine 15 mg 12/19/18 22:00 12/23/18 21:24 Remeron - PO 15 mg HS [facility] Administration Multivitamins/Minerals 1 each 12/20/18 10:00 12/24/18 10:58 Theragran-M PO 1 each DAILY [facility] Administration Oxybutynin Chloride 5 mg 12/21/18 22:00 12/24/18 10:58 Ditropan - PO 5 mg BID [facility] Administration Oxycodone HCl 5 mg 12/22/18 14:34 Roxicodone - PO Q8H PRN PAIN 4-6 Oxycodone HCl 10 mg 12/22/18 14:34 12/24/18 14:49 Roxicodone - PO 10 mg Q6H PRN Administration PAIN 7-10 Spironolactone 25 mg 12/20/18 10:00 12/24/18 12:39 Aldactone - PO 25 mg DAILY [facility] Administration Warfarin Sodium 5 mg 12/22/18 18:00 12/23/18 18:11 Coumadin - PO 5 mg DAILY@1800 [facility] Administration Laboratory Results - last 24 hr 12/24/18 12/24/18 12/24/18 06:50 06:50 06:50 WBC 4.2 RBC 3.78 Hgb 12.1 Hct 36.2 MCV 95.8 MCH 32.1 MCHC 33.5 RDW 18.2 H Plt Count 177 MPV 9.1 PT with INR 29.60 H INR 2.49 H PTT (Actin FS) 42.8 H S1 S2 irregular, systolic click+ lungs clear Abd- soft, NT wound vac rt knee rt knee-- effusion+, wound noted PLAN coumadin per INR pain control wound care eval wound vac spoke with pt-- she lives alone-- she tells me that if needed, she will call her great grand daughter who is 9 yrs old to help her to move around her home! I feel she may not be safe to be at home alone -- she has agreed for SNF which will help her spoke with watch caser Problem List - Problems (1) Infection of right knee Code(s): M00.9 - PYOGENIC ARTHRITIS, UNSPECIFIED (2) Atrial fibrillation Code(s): I48.91 - UNSPECIFIED ATRIAL FIBRILLATION Qualifiers: Atrial fibrillation type: permanent Qualified Code(s): I48.2 - Chronic atrial fibrillation (3) COPD (chronic obstructive pulmonary disease) Code(s): J44.9 - CHRONIC OBSTRUCTIVE PULMONARY DISEASE, UNSPECIFIED Qualifiers: COPD type: unspecified COPD Qualified Code(s): J44.9 - Chronic obstructive pulmonary disease, unspecified
[2018-12-24] MEDS: WARFARIN NA 5 MG TABLET (UD) PO SCH (18:33)
[2018-12-24] MEDS: MIRTAZAPINE 15 MG TABLET (FP) PO SCH (21:18)
[2018-12-25 08:08] LABS: HEMATOCRIT 36.8 % (32.4-45.2); HEMOGLOBIN 12.2 GM/dL (10.7-15.3); MCH 31.8 pg (25.7-33.7); MCHC 33.2 g/dl (32.0-36.0); MEAN CELL VOLUME 95.7 fl (80-96); MEAN PLT VOLUME 9.3 fl (7.5-11.1); PLATELET COUNT 168 K/MM3 (134-434); RBC 3.84 M/mm3 (3.60-5.2); RDW 18.3 % (11.6-15.6); WHITE BLOOD COUNT 3.6 K/mm3 (4.0-10.0)
[2018-12-25 08:20] LABS: INR 2.56 (0.83-1.09); PROTHROMBIN TIME (PATIENT) 30.5 SEC (9.7-13.0)
[2018-12-25] MEDS ORDERED: PT OWN MED DRAWER 7, Y5N ONE (10:09)
[2018-12-25] MEDS: oxyCODONE HCL 5 MG TABLET PO PRN (10:25)
[2018-12-25] MEDS: levETIRAcetam 500 MG TABLET (FP) PO SCH ×2 (10:40→11:34)
[2018-12-25] MEDS: OXYBUTYNIN CHLORIDE 5 MG TABLET PO SCH (10:41)
[2018-12-25] MEDS: FUROSEMIDE 40 MG TABLET (FP) PO SCH (10:42)
[2018-12-25] MEDS: ALLOPURINOL 100 MG TABLET (FP) PO SCH (10:42)
[2018-12-25] MEDS: SPIRONOLACTONE 25 MG TABLET (FP) PO SCH (10:42)
[2018-12-25] MEDS: METOPROLOL TARTRATE 50 MG TABLET (FP) PO SCH (10:43)
[2018-12-25] MEDS: amLODIPine BESYLATE 10 MG TABLET (FP) PO SCH (10:43)
[2018-12-25] MEDS: MULTIVITAMINS THER W-MINERALS COMBO TABLET (FP) PO SCH (10:43)
[2018-12-25] MEDS: CHOLECALCIFEROL (VIT D3) 1,000 UNIT (25 MCG) TABLET PO SCH (10:43)
[2018-12-25] MEDS: COLLAGENASE CLOSTRIDIUM HIST. 30 GRAMS TUBE TP SCH (10:45)
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
--- NOTE | 2018-12-25 12:14 | PN ---
Progress Note (short form) - Note Progress Note: WOUND CARE Called by patient's RN as they wanted to know who was doing the dressing change. Last Sunday I spoke with patient's RN and Sales Engagement Executive who said patient was scheduled to be discharged later that day. Dr. Hillman asked if Surgery PAs could initiate therapy...VAC was placed by me on 12/20/18. All VAC papers filled out. Because I was told she would be leaving I didn't put my usual VAC dressing change orders. Apparently, patient didn't get accepted to facility on Sun and still remains in our hospital. Wound Care/Surgery wasn't aware that she had stayed until today when patient's RN paged us with regards to VAC change. Typically, when a VAC is placed, dressing change orders are either M-W-F or T-TH -Sat. Because I placed it on a Sunday, her next VAC dressing change would've been 12/23. Last Vital Signs Temp Pulse Resp BP Pulse Ox 98.5 F 68 18 126/68 96 12/25/18 06:00 12/25/18 10:00 12/25/18 10:00 12/25/18 10:00 12/24/18 21:00 CBC, BMP 12/25/18 06:29 12/20/18 06:30 Microbiology 12/15/18 12:00 Knee - Left Gram Stain - Final 12/15/18 12:00 Knee - Left Wound Culture - PreliminaryStaphylococcus Coagulase Neg 12/15/18 12:15 Blood - Peripheral Venous Blood Culture - Final NO GROWTH AFTER 5 DAYS INCUBATION 12/15/18 12:00 Blood - Peripheral Venous Blood Culture - Final NO GROWTH AFTER 5 DAYS INCUBATION PE Dressing removed with patient's RN at bedside. RLE: circumfrential wound tissue edge maceration. no undermining. mixed fibrogranular base/pink. no erythema. no odor. measurements unchanged from Problem List - Problems (1) Skin infection of right knee Assessment/Plan: 73 yo female POD #7 s/p Excisional debridement right knee - skin, subcutaneous tissue. Evacuation of hematoma Patient wasn't accepted to a facility that can accommodate her VAC dressing. Case Management is working to find a facility. Hold off on VAC for next 24 hours allowing tissue edges to recover (macerated) Will resume Santyl dressing changes to base of wound. Will re-evaluate in AM for re-application of VAC. (Supplies at bedside) Dr. Hillman and Nurse Wharf Builder Diann Cowan notified. Code(s): L08.9 - LOCAL INFECTION OF THE SKIN AND SUBCUTANEOUS TISSUE, UNSP
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
[2018-12-25] MEDS ORDERED: oxyCODONE HCL 5 MG TABLET PO PRN (16:42)
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
[2018-12-25] MEDS: WARFARIN NA 5 MG TABLET (UD) PO SCH (17:32)
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
[2018-12-25 20:06] VITALS: BP 116/62; PULSE 88; TEMP 97.9
== END 2018-12-25 19:13 | disposition home or self-care (01) | DRG 384 ==
LOC: JER 11:11 → JERBED 12:18 → J5S 14:15
PROVIDERS: ADMIT Internal Medicine; ATTEND Internal Medicine
PROC: 0Y9F0ZZ Drainage of Right Knee Region, Open Approach (ICD-10-PCS; 2018-12-19)
PROC: 0JBN0ZZ Excision of Right Lower Leg Subcutaneous Tissue and Fascia, Open Approach (ICD-10-PCS; principal; 2018-12-19 14:30)
DX: S80.01XA Contusion of right knee, initial encounter (principal); T84.53XA Infection and inflammatory reaction due to internal right knee prosthesis, initial encounter; Y83.9 Surgical procedure, unspecified as the cause of abnormal reaction of the patient, or of later complication, without mention of misadventure at the time of the procedure; I48.2 Chronic atrial fibrillation; Z95.0 Presence of cardiac pacemaker; N18.3 Chronic kidney disease, stage 3 (moderate); I12.9 Hypertensive chronic kidney disease with stage 1 through stage 4 chronic kidney disease, or unspecified chronic kidney disease; L08.9 Local infection of the skin and subcutaneous tissue, unspecified; J44.9 Chronic obstructive pulmonary disease, unspecified; T14.90XA Injury, unspecified, initial encounter; V89.2XXA Person injured in unspecified motor-vehicle accident, traffic, initial encounter; Y93.9 Activity, unspecified; Y92.9 Unspecified place or not applicable; Y99.9 Unspecified external cause status
CPT/HCPCS: 36415; 71045-TC-FY; 73130-TC-RT-FY; 73562-TC-RT-FY; 73700-TC-RT; 80053; 81003; 82550; 82553; 83036; 83605; 84443; 84484; 85025; 85027; 85610; 85651; 85730; 86140; 86850; 86900; 86901; 87040; 87070; 87086; 87186; 87205; 88304-TC; 93005; 93010; 94760; 97116-GP; 97161-GP; 99283-25; G0480; J1644

== ENCOUNTER 2019-05-20 15:49 | Inpatient (IN) | payer BC ==
[2019-05-20 16:01] VITALS: BMI 30.7
[2019-05-20 16:40] LABS: BASO % 2.5 % (0-2.0); EOS % 1.9 % (0-4.5); HEMATOCRIT 40.7 % (32.4-45.2); HEMOGLOBIN 13.3 GM/dl (10.7-15.3); LYMPH % 14.7 % (8-40); MCH 31.4 pg (25.7-33.7); MCHC 32.6 g/dl (32.0-36.0); MEAN CELL VOLUME 96.1 fl (80-96); MEAN PLT VOLUME 8.7 fl (7.5-11.1); MONO % 7.7 % (3.8-10.2); NEUT % 73.2 % (42.8-82.8); PLATELET COUNT 342 K/MM3 (134-434); RBC 4.24 M/mm3 (3.60-5.2); RDW 16.1 % (11.6-15.6); WHITE BLOOD COUNT 7.6 K/mm3 (4.0-10.8)
[2019-05-20 16:45] LABS: INR 2.52 (0.82-1.09); PROTHROMBIN TIME (PATIENT) 27.7 SEC (10.2-13.0)
[2019-05-20 16:51] LABS: ALBUMIN 3.9 g/dl (3.4-5.0); BILIRUBIN,TOTAL 0.5 mg/dl (0.2-1); CALCIUM 10.2 mg/dl (8.5-10); CREATININE 1.2 mg/dl (0.55-1.3); POTASSIUM 4.8 mmol/L (3.5-5.1); TOT PROT 7.4 g/dl (6.4-8.2)
--- NOTE | 2019-05-20 16:54 | PDOC ---
Documentation entered by Laura Willard SCRIBE, acting as scribe for Rafael Nielson MD. Rafael Nielson MD: This documentation has been prepared by the Montse brannon Adrianna, SCRIBE, under my direction and personally reviewed by me in its entirety. I confirm that the documentation accurately reflects all work, treatment, procedures, and medical decision making performed by me. History of Present Illness - General Stated Complaint: "MY DR SENT ME HERE TO HAVE HEPARIN" - History of Present Illness Initial Comments: The patient is a 74 year old female, with a significant PMH of Afib (on Coumadin ), COPD, CVD, CKD, CHF, HTN, asthmatic bronchitis (albuterol prn), TIAs (x3), and rheumatic heart disease, who presents to the ED sent in by her PCP for admission. Patient has a right breast biopsy scheduled in 3 days (05/23/19), and has stopped both her daily Coumadin and Aspirin 2 days ago. Patient has a mechanical heart valve, and as per request of Dr. Florez patient is to be admitted at this time for a heparin drip, which is to be maintained for the next 3 days until her surgery to prevent any development of clots on the valve. Patient denies any acute complaints at this time. Allergies: Penicillins Surgical History: PPM, valve replacements x2, right total knee replacement, bilateral hip replacement, laminectomy Social History: Denies EtOH, tobacco, or illicit drug use PCP: Dr. Mcdowell Past History - Past Medical History Allergies/Adverse Reactions: Allergies Allergy/AdvReac Type Severity Reaction Status Date / Time Penicillins Allergy Severe ITCHING Verified 05/20/19 15:51 AND RASH Home Medications: Ambulatory Orders Aspirin [Aspirin EC] 81 mg PO DAILY #0 06/11/13 Warfarin Sodium 4 mg PO DAILY 06/11/13 Allopurinol [Zyloprim -] 100 mg PO DAILY 12/15/15 Cholecalciferol (Vitamin D3) [Vitamin D3] 1,000 mg PO DAILY 12/15/15 Multivit with Iron,Minerals [Compete] 1 each PO DAILY 12/15/15 Spironolactone [Aldactone] 25 mg PO DAILY 12/15/15 Furosemide [Lasix -] 40 mg PO DAILY tablet 06/12/17 Mirtazapine [Remeron -] 15 mg PO HS tablet 12/18/16 Amlodipine Besylate [Norvasc -] 10 mg PO DAILY 12/15/18 Metoprolol Tartrate 50 mg PO DAILY 12/15/18 Mirabegron [Myrbetriq] 25 mg PO DAILY 12/15/18 Albuterol 0.083% Nebulizer Breanna [Ventolin 0.083%] 1 neb NEB QID PRN 05/20/19 Anemia: No Asthma: Yes (ASTHMATIC BRONCHITIS,USES ALBUTEROL PRN) Cancer: No Cardiac Disorders: Yes (2 valve replacements,2009 Pacemaker 2011) CVA: Yes (reported TIA's x3, no residual deficit) COPD: Yes CHF: Yes Dementia: No Diabetes: No GI Disorders: No Disorders: No HTN: Yes Hypercholesterolemia: No Liver Disease: No Seizures: No Thyroid Disease: No - Surgical History Abdominal Surgery: No Appendectomy: No Cardiac Surgery: Yes (ppm 03/2012, valve replacements x2 and 2005) Cholecystectomy: No Lung Surgery: No Neurologic Surgery: No Orthopedic Surgery: Yes (BILATERAL--THR 2002,LAMINECTOMY) - Psycho Social/Smoking Cessation Hx Smoking Status: No Smoking History: Never smoked Have you smoked in the past 12 months: No Number of Cigarettes Smoked Daily: 0 Hx Alcohol Use: No Drug/Substance Use Hx: No Substance Use Type: None Hx Substance Use Treatment: No Review of Systems - Review of Systems Comments:: GENERAL/CONSTITUTIONAL: No fever or chills. No weakness. HEAD, EYES, EARS, NOSE AND THROAT: No change in vision. No ear pain or discharge. No sore throat. CARDIOVASCULAR: No chest pain or shortness of breath. RESPIRATORY: No cough, wheezing, or hemoptysis. GASTROINTESTINAL: No nausea, vomiting, diarrhea or constipation. GENITOURINARY: No dysuria, frequency, or change in urination. MUSCULOSKELETAL: No joint or muscle swelling or pain. No neck or back pain. SKIN: No rash NEUROLOGIC: No headache, vertigo, loss of consciousness, or change in strength/ sensation. ENDOCRINE: No increased thirst. No abnormal weight change. HEMATOLOGIC/LYMPHATIC: +Daily coumadin and aspirin (stopped 2 days ago for procedure). No anemia or history of blood clots. ALLERGIC/IMMUNOLOGIC: No hives or skin allergy. *Physical Exam - Physical Exam Comments: GENERAL: Awake, alert, and fully oriented, in no acute distress HEAD: No signs of trauma EYES: PERRLA, EOMI, sclera anicteric, conjunctiva clear ENT: Auricles normal inspection, hearing grossly normal, nares patent, oropharynx clear without exudates. Moist mucosa NECK: Normal ROM, supple, no lymphadenopathy, JVD, or masses LUNGS: Breath sounds equal, clear to auscultation bilaterally. No wheezes, and no crackles HEART: Regular rate and rhythm, normal S1 and S2, no murmurs, rubs or gallops ABDOMEN: Soft, nontender, normoactive bowel sounds. No guarding, no rebound. No masses EXTREMITIES: Normal range of motion, no edema. No clubbing or cyanosis. No cords, erythema, or tenderness NEUROLOGICAL: Cranial nerves II through XII grossly intact. Normal speech, normal gait SKIN: Warm, Dry, normal turgor, no rashes or lesions noted. ED Treatment Course - LABORATORY CBC & Chemistry Diagram: 05/23/19 07:02 05/20/19 16:20 Medical Decision Making - Medical Decision Making 05/20/19 18:06 Patient with mechanical heart valve replaced 13 years ago for presumed rheumatic heart disease, scheduled for breast biopsy 1115. Warfarin and aspirin were discontinued 2 days ago, INR today is 2.[address] Estevez, scrubber system attendant, has recommended heparin infusion until surgery. Attempted to contact Dr. Florez, Dr. López answered the page. The case was reviewed with him. He is aware of the INR of 2.52. He recommends heparin infusion at the usual dose, without bolus. This was initiated. Patient is comfortable, asymptomatic, awaiting transfer to the [facility] unit. Discharge - Discharge Information Problems reviewed: Yes Clinical Impression/Diagnosis: Breast mass - Admission Yes - Follow up/Referral - Patient Discharge Instructions - Post Discharge Activity
[2019-05-20] MEDS ORDERED: SODIUM CHLORIDE 250 ML IV STA (17:05)
[2019-05-20] MEDS ORDERED: HEPARIN INFUSION - 25,000 UNITS/500 ML INFUS.BAG IVPB ONE (17:42)
[2019-05-20] MEDS: HEPARIN INFUSION - 25,000 UNITS/500 ML INFUS.BAG IVPB SCH (17:45)
[2019-05-20] MEDS ORDERED: HEPARIN NA (PORCINE) 5,000 UNITS/ML 1ML VIAL IVPUSH PRN (17:46)
[2019-05-20] MEDS ORDERED: ALBUTEROL SO4 0.083% IH SOL 2.5 MG/3 ML VIAL.NEB. NEB PRN (18:27)
--- NOTE | 2019-05-20 18:33 | HP ---
Admitting History and Physical - Primary Care Physician PCP: Mary York - Admission History of Present Illness: patient sent to the hospital by me at the recommendation of hollow tile partition erector--- for bridging with heparin Going to have breast biopsy----05/23 Patient was placed on Lovenox----but cardiology recommended to be on heparin drip----when INR below 2.5 INR checked in my office----2.2 Spoke with the ER physician History Source: Patient - Past Medical History Cardiovascular: Yes: AFIB, HTN, Other (valve replacements on coumadin and ASA) Psych: Yes: Other (insomnia) Rheumatology: Yes: Gout - Past Surgical History Past Surgical History: Yes: Hysterectomy (COLTEN at 31 benign), Joint Replacement ( Bilateral hip 1998), Laminectomy (1984), Valve Replacement - Smoking History Smoking history: Never smoked Have you smoked in the past 12 months: No Aproximately how many cigarettes per day: 0 - Alcohol/Substance Use Hx Alcohol Use: No Home Medications - Allergies Allergies/Adverse Reactions: Allergies Allergy/AdvReac Type Severity Reaction Status Date / Time Penicillins Allergy Severe ITCHING Verified 05/20/19 15:51 AND RASH - Home Medications Home Medications: Ambulatory Orders Aspirin [Aspirin EC] 81 mg PO DAILY #0 06/11/13 Warfarin Sodium 4 mg PO DAILY 06/11/13 Allopurinol [Zyloprim -] 100 mg PO DAILY 12/15/15 Cholecalciferol (Vitamin D3) [Vitamin D3] 1,000 mg PO DAILY 12/15/15 Multivit with Iron,Minerals [Compete] 1 each PO DAILY 12/15/15 Spironolactone [Aldactone] 25 mg PO DAILY 12/15/15 Furosemide [Lasix -] 40 mg PO DAILY tablet 12/18/16 Mirtazapine [Remeron -] 15 mg PO HS tablet 12/18/16 Amlodipine Besylate [Norvasc -] 10 mg PO DAILY 12/15/18 Metoprolol Tartrate 50 mg PO DAILY 12/15/18 Mirabegron [Myrbetriq] 25 mg PO DAILY 12/15/18 Albuterol 0.083% Nebulizer Breanna [Ventolin 0.083%] 1 neb NEB QID PRN 05/20/19 Review of Systems - Review of Systems Constitutional: reports: No Symptoms Eyes: reports: No Symptoms HENT: reports: No Symptoms Neck: reports: No Symptoms Cardiovascular: reports: No Symptoms Respiratory: reports: No Symptoms Gastrointestinal: reports: No Symptoms Genitourinary: reports: No Symptoms Musculoskeletal: reports: Extremity Pain Neurological: reports: No Symptoms Hematology/Lymphatic: reports: No Symptoms Psychiatric: reports: No Symptoms Physical Examination Vital Signs: Vital Signs Temperature 97.8 F 05/20/19 18:14 Pulse Rate 78 05/20/19 18:14 Respiratory Rate 18 05/20/19 18:14 Blood Pressure 127/76 05/20/19 18:14 O2 Sat by Pulse Oximetry (%) 99 05/20/19 18:14 Constitutional: Yes: No Distress, Calm Eyes: Yes: Conjunctiva Clear Neck: Yes: Supple Cardiovascular: Yes: Pulse Irregular, Other (metallic click) Respiratory: Yes: CTA Bilaterally Gastrointestinal: Yes: Normal Bowel Sounds, Soft Edema: No Neurological: Yes: Alert Psychiatric: Yes: Alert Labs: CBC, BMP 05/20/19 16:20 05/20/19 16:20 Imaging - Results Chest X-ray: Report Reviewed X-ray: Report Reviewed EKG: Report Reviewed Problem List - Problems (1) Atrial fibrillation Code(s): I48.91 - UNSPECIFIED ATRIAL FIBRILLATION Qualifiers: Atrial fibrillation type: permanent (2) COPD (chronic obstructive pulmonary disease) Code(s): J44.9 - CHRONIC OBSTRUCTIVE PULMONARY DISEASE, UNSPECIFIED Qualifiers: COPD type: unspecified COPD Qualified Code(s): J44.9 - Chronic obstructive pulmonary disease, unspecified (3) Cardiac pacemaker in situ Code(s): Z95.0 - PRESENCE OF CARDIAC PACEMAKER (4) Chronic kidney disease (CKD) Code(s): N18.9 - CHRONIC KIDNEY DISEASE, UNSPECIFIED Qualifiers: Chronic kidney disease stage: stage 3 (moderate) Qualified Code(s): N18.3 - Chronic kidney disease, stage 3 (moderate) (5) Diastolic dysfunction without heart failure Code(s): I51.9 - HEART DISEASE, UNSPECIFIED (6) HTN (hypertension) Code(s): I10 - ESSENTIAL (PRIMARY) HYPERTENSION Qualifiers: Hypertension type: essential hypertension Qualified Code(s): I10 - Essential (primary) hypertension (7) Rheumatic heart disease Code(s): I09.9 - RHEUMATIC HEART DISEASE, UNSPECIFIED (8) S/P aortic valve replacement with metallic valve Code(s): Z95.4 - PRESENCE OF OTHER HEART-VALVE REPLACEMENT (9) S/P mitral valve replacement with metallic valve Code(s): Z95.4 - PRESENCE OF OTHER HEART-VALVE REPLACEMENT Assessment/Plan heparin drip Off Coumadin Monitor--- heparin as per protocol Labs noted Orders written Cardiology to follow As well as the surgeon Will follow
[2019-05-20] MEDS: MIRTAZAPINE 15 MG TABLET (FP) PO SCH (21:30)
[2019-05-21 03:06] LABS: INR 2.14 (0.83-1.09); PROTHROMBIN TIME (PATIENT) 25.4 SEC (9.7-13.0)
[2019-05-21] MEDS: ALLOPURINOL 100 MG TABLET (FP) PO SCH (09:13)
[2019-05-21] MEDS: MULTIVITAMINS (DAILY MVI) TABLET (FP) PO SCH (09:13)
[2019-05-21] MEDS: SPIRONOLACTONE 25 MG TABLET (FP) PO SCH (09:14)
[2019-05-21] MEDS: FUROSEMIDE 40 MG TABLET (FP) PO SCH (09:14)
[2019-05-21] MEDS: CHOLECALCIFEROL (VIT D3) 1,000 UNIT (25 MCG) TABLET PO SCH (09:14)
[2019-05-21] MEDS: amLODIPine BESYLATE 10 MG TABLET (FP) PO SCH (09:14)
[2019-05-21] MEDS: METOPROLOL TARTRATE 50 MG TABLET (FP) PO SCH (09:15)
--- NOTE | 2019-05-21 09:23 | EKG ---
Test Reason : Blood Pressure : / mmHG Vent. Rate : 076 BPM Atrial Rate : 067 BPM P-R Int : 000 ms QRS Dur : 088 ms QT Int : 404 ms P-R-T Axes : 000 066 041 degrees QTc Int : 454 ms ATRIAL FIBRILLATION WITH A COMPETING JUNCTIONAL PACEMAKER WITH PREMATURE VENTRICULAR OR ABERRANTLY CONDUCTED COMPLEXES SEPTAL INFARCT , AGE UNDETERMINED ABNORMAL ECG WHEN COMPARED WITH ECG OF 15-DEC-2018 12:41, ATRIAL FIBRILLATION HAS REPLACED ELECTRONIC VENTRICULAR PACEMAKER Confirmed by BEA OROURKE, JESSICA ([id number]) on 05/21/2019 9:23:14 AM Referred By: DR CASEY Confirmed By:JESSICA FIGUEREDO MD
--- NOTE | 2019-05-21 09:33 | PN ---
Progress Note (short form) - Note Progress Note: pt seen examined awake/ comfortable--except for pain in the hip--chronic Denies chest pain or shortness of breath No abdominal pain Afebrile. Vital Signs Temp 97.9 F 05/21/19 06:26 Pulse 55 L 05/21/19 06:26 Resp 18 05/21/19 06:26 BP 124/56 L 05/21/19 06:26 Pulse Ox 98 05/21/19 06:26 Intake & Output 05/20/19 05/20/19 05/21/19 11:59 23:59 11:59 Intake Total 550 450 Balance 550 450 Weight 190 lb Intake: IV 200 HEPARIN INFUSION - 25,000 200 units In 500 ml @ 1,000 UNITS/HR 20 mls/hr IVPB TITR MEL[facility]SA Rx#:[id number] Oral 550 250 Other: Voiding Method Toilet Toilet # Unmeasured Voids Void 1 1 Height 5 ft 6 in Body Mass Index (BMI) 30.7 Weight Measurement Method Standing Scale Active Medications Acetaminophen (Tylenol -) 650 mg PO Q6H PRN PRN Reason: PAIN LEVEL 1-5 Albuterol Sulfate (Ventolin 0.083% Nebulizer Soln -) 1 amp NEB QID PRN PRN Reason: SHORTNESS OF BREATH Allopurinol (Zyloprim -) 100 mg PO DAILY [facility] Last Admin: 05/21/19 09:13 Dose: 100 mg Amlodipine Besylate (Norvasc -) 10 mg PO DAILY [facility] Last Admin: 05/21/19 09:14 Dose: 10 mg Cholecalciferol (Vitamin D3 -) 1,000 unit PO DAILY [facility] Last Admin: 05/21/19 09:14 Dose: 1,000 unit Furosemide (Lasix -) 40 mg PO DAILY [facility] Last Admin: 05/21/19 09:14 Dose: 40 mg Heparin Sodium (Porcine) (Heparin -) 1,000 unit IVPUSH PRN PRN PRN Reason: Heparin Heparin Sodium/Dextrose (Heparin Infusion -) 25,000 units in 500 mls @ 20 mls/ hr IVPB TITR MELISSA; Protocol Last Titration: 05/21/19 06:30 Dose: 850 units/hr, 17 mls/hr Metoprolol Tartrate (Lopressor -) 50 mg PO DAILY [facility] Last Admin: 05/21/19 09:15 Dose: Not Given Mirtazapine (Remeron -) 15 mg PO HS [facility] Last Admin: 05/20/19 21:30 Dose: 15 mg Multivitamins/Minerals/Vitamin C (Tab-A-Vit -) 1 tab PO DAILY [facility] Last Admin: 05/21/19 09:13 Dose: 1 tab Non-Formulary Medication (Mirabegron [Myrbetriq]) 25 mg PO DAILY [facility] Spironolactone (Aldactone -) 25 mg PO DAILY [facility] Last Admin: 05/21/19 09:14 Dose: 25 mg CBC, BMP 05/20/19 16:20 05/20/19 16:20 INR, PTT INR 2.14 (0.83-1.09) H 05/21/19 02:25 Physical Examination Constitutional: Yes: No Distress, Calm and comfortable Eyes: Yes: Conjunctiva Clear Neck: Yes: Supple Cardiovascular: Yes: Pulse Irregular, Other (metallic click) Respiratory: Yes: CTA Bilaterally Gastrointestinal: Yes: Normal Bowel Sounds, Soft Edema: No Neurological: Yes: Alert Psychiatric: Yes: Alert Imaging - Results Chest X-ray: Report Reviewed X-ray: Report Reviewed EKG: Report Reviewed Assessment/Plan heparin drip Off Coumadin Monitor--- heparin as per protocol Labs noted Orders written Cardiology to follow As well as the surgeon--breast Tylenol for pain Discussed with RN also Will follow
[2019-05-21] MEDS ORDERED: PATIENT'S OWN MEDICATION (NON-FORMULARY) (Multivit With Iron,Minerals [Compete] 1 EACH) PO SCH (10:00)
[2019-05-21] MEDS ORDERED: PATIENT'S OWN MEDICATION (NON-FORMULARY) (Mirabegron [Myrbetriq] 25 MG) PO SCH (10:00)
[2019-05-21 12:12] LABS: HEMATOCRIT 40.2 % (32.4-45.2); HEMOGLOBIN 13.3 GM/dl (10.7-15.3); MCH 31.8 pg (25.7-33.7); MCHC 33.1 g/dl (32.0-36.0); MEAN CELL VOLUME 96.2 fl (80-96); MEAN PLT VOLUME 8.4 fl (7.5-11.1); PLATELET COUNT 368 K/MM3 (134-434); RBC 4.18 M/mm3 (3.60-5.2); RDW 15.8 % (11.6-15.6); WHITE BLOOD COUNT 4.8 K/mm3 (4.0-10.8)
[2019-05-21 12:27] LABS: ACTIVATED PTT 86.1 SECONDS (25.2-36.5)
[2019-05-21 12:31] LABS: INR 2.18 (0.82-1.09)
[2019-05-21] MEDS: HEPARIN INFUSION - 25,000 UNITS/500 ML INFUS.BAG IVPB SCH ×2 (12:49→18:33)
[2019-05-21] MEDS: MIRTAZAPINE 15 MG TABLET (FP) PO SCH ×2 (12:49→22:07)
[2019-05-21] MEDS: ACETAMINOPHEN 325 MG TABLET (FP) PO PRN (14:44)
[2019-05-22 07:54] LABS: HEMATOCRIT 38.6 % (32.4-45.2); HEMOGLOBIN 12.7 GM/dl (10.7-15.3); MCH 31.6 pg (25.7-33.7); MCHC 32.9 g/dl (32.0-36.0); MEAN CELL VOLUME 96.2 fl (80-96); MEAN PLT VOLUME 8.7 fl (7.5-11.1); PLATELET COUNT 325 K/MM3 (134-434); RBC 4.01 M/mm3 (3.60-5.2); RDW 15.9 % (11.6-15.6); WHITE BLOOD COUNT 4.4 K/mm3 (4.0-10.8)
[2019-05-22 07:59] LABS: ACTIVATED PTT 58.7 SECONDS (25.2-36.5)
[2019-05-22 08:03] LABS: INR 1.7 (0.82-1.09); PROTHROMBIN TIME (PATIENT) 18.8 SEC (10.2-13.0)
[2019-05-22] MEDS: ACETAMINOPHEN 325 MG TABLET (FP) PO PRN ×2 (08:59→19:25)
[2019-05-22] MEDS: METOPROLOL TARTRATE 50 MG TABLET (FP) PO SCH (09:21)
[2019-05-22] MEDS: FUROSEMIDE 40 MG TABLET (FP) PO SCH (09:25)
[2019-05-22] MEDS: SPIRONOLACTONE 25 MG TABLET (FP) PO SCH (09:25)
[2019-05-22] MEDS: MULTIVITAMINS (DAILY MVI) TABLET (FP) PO SCH (09:25)
[2019-05-22] MEDS: CHOLECALCIFEROL (VIT D3) 1,000 UNIT (25 MCG) TABLET PO SCH (09:25)
[2019-05-22] MEDS: ALLOPURINOL 100 MG TABLET (FP) PO SCH (09:25)
[2019-05-22] MEDS: amLODIPine BESYLATE 10 MG TABLET (FP) PO SCH (09:25)
--- NOTE | 2019-05-22 13:09 | PN ---
Progress Note, Physician History of Present Illness: Awaiting acceptable INR for breast biopsy, denies chest pain or dyspnea. - Current Medication List Current Medications: Active Medications Acetaminophen (Tylenol -) 650 mg PO Q6H PRN PRN Reason: PAIN LEVEL 1-5 Last Admin: 05/22/19 08:59 Dose: 650 mg Albuterol Sulfate (Ventolin 0.083% Nebulizer Soln -) 1 amp NEB QID PRN PRN Reason: SHORTNESS OF BREATH Last Admin: 05/22/19 09:21 Dose: 1 amp Allopurinol (Zyloprim -) 100 mg PO DAILY [facility] Last Admin: 05/22/19 09:25 Dose: 100 mg Amlodipine Besylate (Norvasc -) 10 mg PO DAILY [facility] Last Admin: 05/22/19 09:25 Dose: 10 mg Cholecalciferol (Vitamin D3 -) 1,000 unit PO DAILY [facility] Last Admin: 05/22/19 09:25 Dose: 1,000 unit Furosemide (Lasix -) 40 mg PO DAILY [facility] Last Admin: 05/22/19 09:25 Dose: 40 mg Heparin Sodium (Porcine) (Heparin -) 1,000 unit IVPUSH PRN PRN PRN Reason: Heparin Heparin Sodium/Dextrose (Heparin Infusion -) 25,000 units in 500 mls @ 20 mls/ hr IVPB TITR [facility]; Protocol Last Admin: 05/21/19 18:33 Dose: 700 units/hr, 14 mls/hr Metoprolol Tartrate (Lopressor -) 50 mg PO DAILY [facility] Last Admin: 05/22/19 09:21 Dose: 50 mg Mirtazapine (Remeron -) 15 mg PO HS [facility] Last Admin: 05/21/19 22:07 Dose: 15 mg Multivitamins/Minerals/Vitamin C (Tab-A-Vit -) 1 tab PO DAILY [facility] Last Admin: 05/22/19 09:25 Dose: 1 tab Non-Formulary Medication (Mirabegron [Myrbetriq]) 25 mg PO DAILY [facility] Spironolactone (Aldactone -) 25 mg PO DAILY [facility] Last Admin: 05/22/19 09:25 Dose: 25 mg - Objective Vital Signs: Vital Signs Temperature 97.7 F 05/22/19 09:27 Pulse Rate 60 05/22/19 12:00 Respiratory Rate 17 11/14/19 12:00 Blood Pressure 107/65 11/14/19 12:00 O2 Sat by Pulse Oximetry (%) 98 05/22/19 12:00 Constitutional: Yes: No Distress, Calm, Thin Neck: Yes: Supple Cardiovascular: Yes: Pulse Irregular, Other (Churchill mechanical valve sounds) Respiratory: Yes: Regular, CTA Bilaterally Gastrointestinal: Yes: Normal Bowel Sounds, Soft Edema: No Labs: CBC, BMP 05/22/19 07:17 05/20/19 16:20 INR, PTT INR 1.70 (0.82-1.09) H 05/22/19 07:17 Assessment/Plan Problem List - Problems (1) Chronic anticoagulation Code(s): Z79.01 - COOK RELIEF (CURRENT) USE OF ANTICOAGULANTS (2) Breast mass Code(s): N63.0 - UNSPECIFIED LUMP IN UNSPECIFIED BREAST (3) Atrial fibrillation Code(s): I48.91 - UNSPECIFIED ATRIAL FIBRILLATION Qualifiers: Atrial fibrillation type: permanent Qualified Code(s): I48.21 - Permanent atrial fibrillation (4) Cardiac pacemaker in situ Code(s): Z95.0 - PRESENCE OF CARDIAC PACEMAKER (5) Chronic kidney disease (CKD) Code(s): N18.9 - CHRONIC KIDNEY DISEASE, UNSPECIFIED Qualifiers: Chronic kidney disease stage: stage 3 (moderate) Qualified Code(s): N18.3 - Chronic kidney disease, stage 3 (moderate) (6) Diastolic dysfunction without heart failure Code(s): I51.9 - HEART DISEASE, UNSPECIFIED (7) HTN (hypertension) Code(s): I10 - ESSENTIAL (PRIMARY) HYPERTENSION Qualifiers: Hypertension type: essential hypertension Qualified Code(s): I10 - Essential (primary) hypertension (8) Pre-operative cardiovascular examination Code(s): Z01.810 - ENCOUNTER FOR PREPROCEDURAL CARDIOVASCULAR EXAMINATION (9) Rheumatic heart disease Code(s): I09.9 - RHEUMATIC HEART DISEASE, UNSPECIFIED (10) S/P aortic valve replacement with metallic valve Code(s): Z95.4 - PRESENCE OF OTHER HEART-VALVE REPLACEMENT (11) S/P mitral valve replacement with metallic valve Code(s): Z95.4 - PRESENCE OF OTHER HEART-VALVE REPLACEMENT Assessment/Plan 03/14/2019 Echo: Normal LV and RV size and fxn, mod ALICIA, mech MV and AV, tricuspid annular ring with mod TR RVSP 41 mmHg 1. Pre-op right breast biopsy 2. Rheumatic heart disease s/p mech AVR and MVR now with subtherapeutic INR 3. Afib sss s/p PPM last interrogation Aug 05, 2018 4. TIA 5. HTN P:1. Bridging heparin gtt while off ASA and coumadin, resume once post-op hemostasis assured 2. Patient may proceed with breast biopsy once INR acceptable 3. Continue Aldactone 25 qd, Lasix 40 qd, Norvasc 10 qd, metoprolol 50 qd 4. Routine f/u with Dr. Florez
--- NOTE | 2019-05-22 13:23 | PN ---
Progress Note (short form) - Note Progress Note: Patient seen and examined this morning no complaints--except sometimes dry cough Feels well Vital Signs Temp 97.7 F 05/22/19 09:27 Pulse 60 05/22/19 12:00 Resp 17 05/22/19 12:00 BP 107/65 05/22/19 12:00 Pulse Ox 98 05/22/19 12:00 Intake & Output 05/21/19 05/22/19 05/22/19 23:59 11:59 23:59 Intake Total 200 430 Output Total 350 Balance -150 430 Intake: IV 180 HEPARIN INFUSION - 25,000 180 units In 500 ml @ 1,000 UNITS/HR 20 mls/hr IVPB TITR MELISSA Rx#:[id number] Oral 200 250 Output: Urine 350 Void 350 Other: Voiding Method Toilet Toilet # Unmeasured Voids Void 1 Active Medications Acetaminophen (Tylenol -) 650 mg PO Q6H PRN PRN Reason: PAIN LEVEL 1-5 Last Admin: 05/22/19 08:59 Dose: 650 mg Albuterol Sulfate (Ventolin 0.083% Nebulizer Soln -) 1 amp NEB QID PRN PRN Reason: SHORTNESS OF BREATH Last Admin: 05/22/19 09:21 Dose: 1 amp Allopurinol (Zyloprim -) 100 mg PO DAILY [facility] Last Admin: 05/22/19 09:25 Dose: 100 mg Amlodipine Besylate (Norvasc -) 10 mg PO DAILY [facility] Last Admin: 05/22/19 09:25 Dose: 10 mg Cholecalciferol (Vitamin D3 -) 1,000 unit PO DAILY [facility] Last Admin: 05/22/19 09:25 Dose: 1,000 unit Furosemide (Lasix -) 40 mg PO DAILY [facility] Last Admin: 05/22/19 09:25 Dose: 40 mg Heparin Sodium (Porcine) (Heparin -) 1,000 unit IVPUSH PRN PRN PRN Reason: Heparin Heparin Sodium/Dextrose (Heparin Infusion -) 25,000 units in 500 mls @ 20 mls/ hr IVPB TITR MELISSA; Protocol Last Admin: 05/21/19 18:33 Dose: 700 units/hr, 14 mls/hr Metoprolol Tartrate (Lopressor -) 50 mg PO DAILY [facility] Last Admin: 05/22/19 09:21 Dose: 50 mg Mirtazapine (Remeron -) 15 mg PO HS [facility] Last Admin: 05/21/19 22:07 Dose: 15 mg Multivitamins/Minerals/Vitamin C (Tab-A-Vit -) 1 tab PO DAILY [facility] Last Admin: 05/22/19 09:25 Dose: 1 tab Non-Formulary Medication (Mirabegron [Myrbetriq]) 25 mg PO DAILY [facility] Spironolactone (Aldactone -) 25 mg PO DAILY [facility] Last Admin: 05/22/19 09:25 Dose: 25 mg CBC, BMP 05/22/19 07:17 05/20/19 16:20 INR, PTT INR 1.70 (0.82-1.09) H 05/22/19 07:17 Physical Examination Constitutional: Yes: No Distress, Calm and comfortable Eyes: Yes: Conjunctiva Clear Neck: Yes: Supple Cardiovascular: Yes: Pulse Irregular, Other (metallic click) Respiratory: Yes: CTA Bilaterally Gastrointestinal: Yes: Normal Bowel Sounds, Soft Edema: No Neurological: Yes: Alert Psychiatric: Yes: Alert Imaging - Results Chest X-ray: Report Reviewed X-ray: Report Reviewed EKG: Report Reviewed Assessment/Plan heparin drip Off Coumadin Monitor--- heparin as per protocol Labs noted Breast surgeon to follow Tylenol for pain Will follow
[2019-05-22] MEDS: traMADol HCL 50 MG TABLET PO PRN ×2 (14:18→21:30)
[2019-05-22] MEDS: HEPARIN INFUSION - 25,000 UNITS/500 ML INFUS.BAG IVPB SCH (18:59)
[2019-05-22] MEDS: guaiFENesin 200 MG/10 ML 10 ML UNIT-DOSE CUPS PO PRN (20:17)
[2019-05-22] MEDS: MIRTAZAPINE 15 MG TABLET (FP) PO SCH (21:02)
[2019-05-23 07:57] LABS: HEMATOCRIT 38.3 % (32.4-45.2); HEMOGLOBIN 12.2 GM/dl (10.7-15.3); MCH 30.8 pg (25.7-33.7); MCHC 31.9 g/dl (32.0-36.0); MEAN CELL VOLUME 96.6 fl (80-96); MEAN PLT VOLUME 8.8 fl (7.5-11.1); PLATELET COUNT 317 K/MM3 (134-434); RBC 3.96 M/mm3 (3.60-5.2); RDW 15.9 % (11.6-15.6); WHITE BLOOD COUNT 4.6 K/mm3 (4.0-10.8)
[2019-05-23 08:06] LABS: INR 1.39 (0.82-1.09); PROTHROMBIN TIME (PATIENT) 15.5 SEC (10.2-13.0)
--- NOTE | 2019-05-23 09:40 | PN ---
Progress Note (short form) - Note Progress Note: Pt seen/ examined given tramadol for hip pain- chronic denies cp/sob Vital Signs Temp 97.9 F 05/23/19 06:00 Pulse 67 05/23/19 06:00 Resp 16 05/23/19 08:11 BP 127/78 05/23/19 06:00 Pulse Ox 98 05/23/19 08:11 Intake & Output 05/22/19 05/22/19 05/23/19 11:59 23:59 11:59 Intake Total 430 506 98 Balance 430 506 98 Intake: IV 180 56 98 HEPARIN INFUSION - 25,000 180 56 98 units In 500 ml @ 1,000 UNITS/HR 20 mls/hr IVPB TITR MELISSA Rx#:[id number] Oral 250 450 Other: Voiding Method Toilet Toilet Toilet # Unmeasured Voids Void 1 2 1 Bowel Movement No No Active Medications Acetaminophen (Tylenol -) 650 mg PO Q6H PRN PRN Reason: PAIN LEVEL 1-5 Last Admin: 05/22/19 19:25 Dose: 650 mg Albuterol Sulfate (Ventolin 0.083% Nebulizer Soln -) 1 amp NEB QID PRN PRN Reason: SHORTNESS OF BREATH Last Admin: 05/22/19 09:21 Dose: 1 amp Allopurinol (Zyloprim -) 100 mg PO DAILY [facility] Last Admin: 05/22/19 09:25 Dose: 100 mg Amlodipine Besylate (Norvasc -) 10 mg PO DAILY [facility] Last Admin: 05/22/19 09:25 Dose: 10 mg Cholecalciferol (Vitamin D3 -) 1,000 unit PO DAILY [facility] Last Admin: 05/22/19 09:25 Dose: 1,000 unit Furosemide (Lasix -) 40 mg PO DAILY [facility] Last Admin: 05/22/19 09:25 Dose: 40 mg Guaifenesin (Robitussin -) 10 ml PO Q8H PRN PRN Reason: COUGH Last Admin: 05/22/19 20:17 Dose: 10 ml Heparin Sodium (Porcine) (Heparin -) 1,000 unit IVPUSH PRN PRN PRN Reason: Heparin Heparin Sodium/Dextrose (Heparin Infusion -) 25,000 units in 500 mls @ 20 mls/ hr IVPB TITR MELISSA; Protocol Last Admin: 05/22/19 18:59 Dose: 700 units/hr, 14 mls/hr Metoprolol Tartrate (Lopressor -) 50 mg PO DAILY [facility] Last Admin: 05/22/19 09:21 Dose: 50 mg Mirtazapine (Remeron -) 15 mg PO HS [facility] Last Admin: 05/22/19 21:02 Dose: 15 mg Multivitamins/Minerals/Vitamin C (Tab-A-Vit -) 1 tab PO DAILY [facility] Last Admin: 05/22/19 09:25 Dose: 1 tab Non-Formulary Medication (Mirabegron [Myrbetriq]) 25 mg PO DAILY [facility] Spironolactone (Aldactone -) 25 mg PO DAILY [facility] Last Admin: 05/22/19 09:25 Dose: 25 mg Tramadol HCl (Ultram -) 50 mg PO Q8H PRN PRN Reason: PAIN LEVEL 6-10 Last Admin: 05/22/19 21:30 Dose: 50 mg CBC, BMP 05/23/19 07:02 05/20/19 16:20 INR, PTT INR 1.39 (0.82-1.09) H 05/23/19 07:02 Physical Examination Constitutional: Yes: No Distress, Calm and comfortable Eyes: Yes: Conjunctiva Clear Neck: Yes: Supple Cardiovascular: Yes: Pulse Irregular, Other (metallic click) Respiratory: Yes: CTA Bilaterally Gastrointestinal: Yes: Normal Bowel Sounds, Soft Edema: No Neurological: Yes: Alert Psychiatric: Yes: Alert Imaging - Results Chest X-ray: Report Reviewed X-ray: Report Reviewed EKG: Report Reviewed Assessment/Plan heparin drip Off Coumadin Monitor--- heparin as per protocol Labs noted Breast surgeon to follow-- called again today. Not scheduled yet !! Tylenol/ tramadol for pain Will follow Problem List - Problems (1) Breast mass Code(s): N63.0 - UNSPECIFIED LUMP IN UNSPECIFIED BREAST (2) Atrial fibrillation Code(s): I48.91 - UNSPECIFIED ATRIAL FIBRILLATION Qualifiers: Atrial fibrillation type: permanent Qualified Code(s): I48.21 - Permanent atrial fibrillation (3) COPD (chronic obstructive pulmonary disease) Code(s): J44.9 - CHRONIC OBSTRUCTIVE PULMONARY DISEASE, UNSPECIFIED Qualifiers: COPD type: unspecified COPD Qualified Code(s): J44.9 - Chronic obstructive pulmonary disease, unspecified (4) Cardiac pacemaker in situ Code(s): Z95.0 - PRESENCE OF CARDIAC PACEMAKER (5) HTN (hypertension) Code(s): I10 - ESSENTIAL (PRIMARY) HYPERTENSION Qualifiers: Hypertension type: essential hypertension Qualified Code(s): I10 - Essential (primary) hypertension (6) S/P aortic valve replacement with metallic valve Code(s): Z95.4 - PRESENCE OF OTHER HEART-VALVE REPLACEMENT (7) S/P mitral valve replacement with metallic valve Code(s): Z95.4 - PRESENCE OF OTHER HEART-VALVE REPLACEMENT (8) Total knee replacement status Code(s): Z96.659 - PRESENCE OF UNSPECIFIED ARTIFICIAL KNEE JOINT Qualifiers: Laterality: right Qualified Code(s): Z96.651 - Presence of right artificial knee joint
[2019-05-23] MEDS: traMADol HCL 50 MG TABLET PO PRN ×2 (09:48→18:50)
[2019-05-23] MEDS: SPIRONOLACTONE 25 MG TABLET (FP) PO SCH (09:49)
[2019-05-23] MEDS: MULTIVITAMINS (DAILY MVI) TABLET (FP) PO SCH (09:49)
[2019-05-23] MEDS: ALLOPURINOL 100 MG TABLET (FP) PO SCH (09:49)
[2019-05-23] MEDS: amLODIPine BESYLATE 10 MG TABLET (FP) PO SCH (09:50)
[2019-05-23] MEDS: FUROSEMIDE 40 MG TABLET (FP) PO SCH (09:50)
[2019-05-23] MEDS: METOPROLOL TARTRATE 50 MG TABLET (FP) PO SCH (09:50)
[2019-05-23] MEDS: CHOLECALCIFEROL (VIT D3) 1,000 UNIT (25 MCG) TABLET PO SCH (09:50)
--- NOTE | 2019-05-23 10:19 | PN ---
Progress Note, Physician History of Present Illness: Awaiting breast biopsy today now that INR acceptable and heparin gtt d/luis, denies chest pain or dyspnea. - Current Medication List Current Medications: Active Medications Acetaminophen (Tylenol -) 650 mg PO Q6H PRN PRN Reason: PAIN LEVEL 1-5 Last Admin: 05/22/19 19:25 Dose: 650 mg Albuterol Sulfate (Ventolin 0.083% Nebulizer Soln -) 1 amp NEB QID PRN PRN Reason: SHORTNESS OF BREATH Last Admin: 05/22/19 09:21 Dose: 1 amp Allopurinol (Zyloprim -) 100 mg PO DAILY [facility] Last Admin: 05/23/19 09:49 Dose: 100 mg Amlodipine Besylate (Norvasc -) 10 mg PO DAILY [facility] Last Admin: 05/23/19 09:50 Dose: 10 mg Cholecalciferol (Vitamin D3 -) 1,000 unit PO DAILY [facility] Last Admin: 05/23/19 09:50 Dose: 1,000 unit Furosemide (Lasix -) 40 mg PO DAILY [facility] Last Admin: 05/23/19 09:50 Dose: 40 mg Guaifenesin (Robitussin -) 10 ml PO Q8H PRN PRN Reason: COUGH Last Admin: 05/22/19 20:17 Dose: 10 ml Heparin Sodium (Porcine) (Heparin -) 1,000 unit IVPUSH PRN PRN PRN Reason: Heparin Heparin Sodium/Dextrose (Heparin Infusion -) 25,000 units in 500 mls @ 20 mls/ hr IVPB TITR [facility]; Protocol Last Admin: 05/22/19 18:59 Dose: 700 units/hr, 14 mls/hr Metoprolol Tartrate (Lopressor -) 50 mg PO DAILY [facility] Last Admin: 05/23/19 09:50 Dose: 50 mg Mirtazapine (Remeron -) 15 mg PO HS [facility] Last Admin: 05/22/19 21:02 Dose: 15 mg Multivitamins/Minerals/Vitamin C (Tab-A-Vit -) 1 tab PO DAILY [facility] Last Admin: 05/23/19 09:49 Dose: 1 tab Non-Formulary Medication (Mirabegron [Myrbetriq]) 25 mg PO DAILY [facility] Spironolactone (Aldactone -) 25 mg PO DAILY [facility] Last Admin: 11/15/19 09:49 Dose: 25 mg Tramadol HCl (Ultram -) 50 mg PO Q8H PRN PRN Reason: PAIN LEVEL 6-10 Last Admin: 05/23/19 09:48 Dose: 50 mg - Objective Vital Signs: Vital Signs Temperature 97.9 F 05/23/19 06:00 Pulse Rate 67 05/23/19 06:00 Respiratory Rate 16 05/23/19 08:11 Blood Pressure 127/78 05/23/19 06:00 O2 Sat by Pulse Oximetry (%) 98 05/23/19 08:11 Constitutional: Yes: No Distress, Calm Neck: Yes: Supple Cardiovascular: Yes: Pulse Irregular, Other ([place] mechanical valve sounds) Respiratory: Yes: Regular, CTA Bilaterally Gastrointestinal: Yes: Soft, Hypoactive Bowel Sounds Edema: No Labs: CBC, BMP 05/23/19 07:02 05/20/19 16:20 INR, PTT INR 1.39 (0.82-1.09) H 05/23/19 07:02 Assessment/Plan Problem List - Problems (1) Chronic anticoagulation Code(s): Z79.01 - SHELTER (CURRENT) USE OF ANTICOAGULANTS (2) Breast mass Code(s): N63.0 - UNSPECIFIED LUMP IN UNSPECIFIED BREAST (3) Atrial fibrillation Code(s): I48.91 - UNSPECIFIED ATRIAL FIBRILLATION Qualifiers: Atrial fibrillation type: permanent Qualified Code(s): I48.21 - Permanent atrial fibrillation (4) Cardiac pacemaker in situ Code(s): Z95.0 - PRESENCE OF CARDIAC PACEMAKER (5) Chronic kidney disease (CKD) Code(s): N18.9 - CHRONIC KIDNEY DISEASE, UNSPECIFIED Qualifiers: Chronic kidney disease stage: stage 3 (moderate) Qualified Code(s): N18.3 - Chronic kidney disease, stage 3 (moderate) (6) Diastolic dysfunction without heart failure Code(s): I51.9 - HEART DISEASE, UNSPECIFIED (7) HTN (hypertension) Code(s): I10 - ESSENTIAL (PRIMARY) HYPERTENSION Qualifiers: Hypertension type: essential hypertension Qualified Code(s): I10 - Essential (primary) hypertension (8) Pre-operative cardiovascular examination Code(s): Z01.810 - ENCOUNTER FOR PREPROCEDURAL CARDIOVASCULAR EXAMINATION (9) Rheumatic heart disease Code(s): I09.9 - RHEUMATIC HEART DISEASE, UNSPECIFIED (10) S/P aortic valve replacement with metallic valve Code(s): Z95.4 - PRESENCE OF OTHER HEART-VALVE REPLACEMENT (11) S/P mitral valve replacement with metallic valve Code(s): Z95.4 - PRESENCE OF OTHER HEART-VALVE REPLACEMENT Assessment/Plan 03/14/2019 Echo: Normal LV and RV size and fxn, mod ALICIA, mech MV and AV, tricuspid annular ring with mod TR RVSP 41 mmHg 1. Pre-op right breast biopsy 2. Rheumatic heart disease s/p mech AVR and MVR now with subtherapeutic INR 3. Afib sss s/p PPM last interrogation Aug 05, 2018 4. TIA 5. HTN P:1. Resume bridging heparin gtt w/o bolus, ASA and coumadin once post-op hemostasis assured 2. Patient may proceed with breast biopsy as INR acceptable and heparin gtt d/ luis 3. Continue Aldactone 25 qd, Lasix 40 qd, Norvasc 10 qd, metoprolol 50 qd 4. Routine f/u with Dr. Florez
[2019-05-23] MEDS: HEPARIN INFUSION - 25,000 UNITS/500 ML INFUS.BAG IVPB SCH (16:00)
[2019-05-23] MEDS ORDERED: WARFARIN NA 7.5 MG TABLET (FP) PO ONE (18:00)
[2019-05-23] MEDS: MIRTAZAPINE 15 MG TABLET (FP) PO SCH (21:12)
[2019-05-23 22:51] LABS: INR 1.33 (0.82-1.09); PROTHROMBIN TIME (PATIENT) 14.8 SEC (10.2-13.0)
[2019-05-23] MEDS: ACETAMINOPHEN 325 MG TABLET (FP) PO PRN (23:46)
[2019-05-24] MEDS: traMADol HCL 50 MG TABLET PO PRN ×2 (07:01→21:42)
[2019-05-24] MEDS: ALLOPURINOL 100 MG TABLET (FP) PO SCH (09:45)
[2019-05-24] MEDS: MULTIVITAMINS (DAILY MVI) TABLET (FP) PO SCH (09:45)
[2019-05-24] MEDS: METOPROLOL TARTRATE 50 MG TABLET (FP) PO SCH (09:45)
[2019-05-24] MEDS: amLODIPine BESYLATE 10 MG TABLET (FP) PO SCH (09:45)
[2019-05-24] MEDS: CHOLECALCIFEROL (VIT D3) 1,000 UNIT (25 MCG) TABLET PO SCH (09:45)
[2019-05-24] MEDS: SPIRONOLACTONE 25 MG TABLET (FP) PO SCH (09:45)
[2019-05-24] MEDS: FUROSEMIDE 40 MG TABLET (FP) PO SCH (09:45)
[2019-05-24 09:49] LABS: ACTIVATED PTT 82.1 SECONDS (25.2-36.5); HEMATOCRIT 39.2 % (32.4-45.2); HEMOGLOBIN 12.9 GM/dl (10.7-15.3); MCH 31.9 pg (25.7-33.7); MEAN CELL VOLUME 96.6 fl (80-96); MEAN PLT VOLUME 8.6 fl (7.5-11.1); PLATELET COUNT 303 K/MM3 (134-434); RBC 4.06 M/mm3 (3.60-5.2); RDW 16.4 % (11.6-15.6); WHITE BLOOD COUNT 4.4 K/mm3 (4.0-10.8)
[2019-05-24 09:53] LABS: INR 1.34 (0.82-1.09); PROTHROMBIN TIME (PATIENT) 14.9 SEC (10.2-13.0)
[2019-05-24] MEDS ORDERED: WARFARIN NA 2 MG TABLET (UD) PO SCH (18:00)
[2019-05-24] MEDS: HEPARIN INFUSION - 25,000 UNITS/500 ML INFUS.BAG IVPB SCH (18:31)
[2019-05-24] MEDS: MIRTAZAPINE 15 MG TABLET (FP) PO SCH (21:43)
--- NOTE | 2019-05-24 21:47 | PN ---
Progress Note (short form) - Note Progress Note: pt sen earlier today s/p biopsy c/c- pain - left hip area Vital Signs Temp 97.6 F 05/24/19 18:00 Pulse 56 L 05/24/19 18:00 Resp 17 05/24/19 18:00 BP 121/57 L 05/24/19 18:00 Pulse Ox 96 05/24/19 18:00 Intake & Output 05/23/19 05/24/19 05/24/19 23:59 11:59 23:59 Intake Total 570 380 904 Balance 570 380 904 Intake: IV 120 204 HEPARIN INFUSION - 25,000 120 204 units In 500 ml @ 1,000 UNITS/HR 20 mls/hr IVPB TITR [facility] Rx#:[id number] Oral 450 380 700 Other: Voiding Method Toilet Toilet Toilet # Unmeasured Voids Void 1 Bowel Movement No Active Medications Acetaminophen (Tylenol -) 650 mg PO Q6H PRN PRN Reason: PAIN LEVEL 1-5 Last Admin: 05/23/19 23:46 Dose: 650 mg Albuterol Sulfate (Ventolin 0.083% Nebulizer Soln -) 1 amp NEB QID PRN PRN Reason: SHORTNESS OF BREATH Last Admin: 05/22/19 09:21 Dose: 1 amp Allopurinol (Zyloprim -) 100 mg PO DAILY [facility] Last Admin: 05/24/19 09:45 Dose: 100 mg Amlodipine Besylate (Norvasc -) 10 mg PO DAILY [facility] Last Admin: 05/24/19 09:45 Dose: 10 mg Cholecalciferol (Vitamin D3 -) 1,000 unit PO DAILY [facility] Last Admin: 05/24/19 09:45 Dose: 1,000 unit Furosemide (Lasix -) 40 mg PO DAILY [facility] Last Admin: 05/24/19 09:45 Dose: 40 mg Guaifenesin (Robitussin -) 10 ml PO Q8H PRN PRN Reason: COUGH Last Admin: 05/22/19 20:17 Dose: 10 ml Heparin Sodium (Porcine) (Heparin -) 1,000 unit IVPUSH PRN PRN PRN Reason: Heparin Heparin Sodium/Dextrose (Heparin Infusion -) 25,000 units in 500 mls @ 20 mls/ hr IVPB TITR [facility]; Protocol Last Admin: 05/24/19 18:31 Dose: 850 units/hr, 17 mls/hr Metoprolol Tartrate (Lopressor -) 50 mg PO DAILY [facility] Last Admin: 05/24/19 09:45 Dose: 50 mg Mirtazapine (Remeron -) 15 mg PO HS [facility] Last Admin: 05/24/19 21:43 Dose: 15 mg Multivitamins/Minerals/Vitamin C (Tab-A-Vit -) 1 tab PO DAILY [facility] Last Admin: 05/24/19 09:45 Dose: 1 tab Non-Formulary Medication (Mirabegron [Myrbetriq]) 25 mg PO DAILY [facility] Spironolactone (Aldactone -) 25 mg PO DAILY [facility] Last Admin: 05/24/19 09:45 Dose: 25 mg Tramadol HCl (Ultram -) 50 mg PO Q8H PRN PRN Reason: PAIN LEVEL 6-10 Last Admin: 05/24/19 21:42 Dose: 50 mg Warfarin Sodium (Coumadin -) 4 mg PO DAILY@1800 [facility] Last Admin: 05/24/19 18:28 Dose: Not Given CBC, BMP 05/24/19 09:01 05/20/19 16:20 INR, PTT INR 1.34 (0.82-1.09) H 05/24/19 09:01 Physical Examination Constitutional: Yes: No Distress, Calm and comfortable Eyes: Yes: Conjunctiva Clear Neck: Yes: Supple Cardiovascular: Yes: Pulse Irregular, Other (metallic click) Respiratory: Yes: CTA Bilaterally Gastrointestinal: Yes: Normal Bowel Sounds, Soft Edema: No Neurological: Yes: Alert Psychiatric: Yes: Alert Imaging - Results Chest X-ray: Report Reviewed X-ray: Report Reviewed EKG: Report Reviewed Assessment/Plan s/p biopsy heparin drip Coumadin restarted Monitor--- heparin as per protocol x ray hips Tylenol/ tramadol for pain Will follow Had d/w rn also Problem List - Problems (1) Breast mass Code(s): N63.0 - UNSPECIFIED LUMP IN UNSPECIFIED BREAST (2) Atrial fibrillation Code(s): I48.91 - UNSPECIFIED ATRIAL FIBRILLATION Qualifiers: Atrial fibrillation type: permanent Qualified Code(s): I48.21 - Permanent atrial fibrillation (3) COPD (chronic obstructive pulmonary disease) Code(s): J44.9 - CHRONIC OBSTRUCTIVE PULMONARY DISEASE, UNSPECIFIED Qualifiers: COPD type: unspecified COPD Qualified Code(s): J44.9 - Chronic obstructive pulmonary disease, unspecified (4) Cardiac pacemaker in situ Code(s): Z95.0 - PRESENCE OF CARDIAC PACEMAKER (5) HTN (hypertension) Code(s): I10 - ESSENTIAL (PRIMARY) HYPERTENSION Qualifiers: Hypertension type: essential hypertension Qualified Code(s): I10 - Essential (primary) hypertension (6) S/P aortic valve replacement with metallic valve Code(s): Z95.4 - PRESENCE OF OTHER HEART-VALVE REPLACEMENT (7) S/P mitral valve replacement with metallic valve Code(s): Z95.4 - PRESENCE OF OTHER HEART-VALVE REPLACEMENT (8) Total knee replacement status Code(s): Z96.659 - PRESENCE OF UNSPECIFIED ARTIFICIAL KNEE JOINT Qualifiers: Laterality: right Qualified Code(s): Z96.651 - Presence of right artificial knee joint
[2019-05-25] MEDS: traMADol HCL 50 MG TABLET PO PRN (06:58)
[2019-05-25] MEDS: METOPROLOL TARTRATE 50 MG TABLET (FP) PO SCH (09:03)
[2019-05-25] MEDS: amLODIPine BESYLATE 10 MG TABLET (FP) PO SCH (09:03)
[2019-05-25] MEDS: MULTIVITAMINS (DAILY MVI) TABLET (FP) PO SCH (09:03)
[2019-05-25] MEDS: CHOLECALCIFEROL (VIT D3) 1,000 UNIT (25 MCG) TABLET PO SCH (09:03)
[2019-05-25] MEDS: ALLOPURINOL 100 MG TABLET (FP) PO SCH (09:03)
[2019-05-25] MEDS: FUROSEMIDE 40 MG TABLET (FP) PO SCH (09:03)
[2019-05-25] MEDS: SPIRONOLACTONE 25 MG TABLET (FP) PO SCH (09:04)
[2019-05-25 09:37] LABS: ACTIVATED PTT 83.2 SECONDS (25.2-36.5); INR 1.45 (0.82-1.09); PROTHROMBIN TIME (PATIENT) 16.1 SEC (10.2-13.0)
--- NOTE | 2019-05-25 11:28 | PN ---
Progress Note (short form) - Note Progress Note: Awake/ comfortable no new issues Vital Signs Temp 97.5 F L 05/25/19 06:00 Pulse 56 L 05/25/19 06:00 Resp 18 05/25/19 07:40 BP 132/58 L 05/25/19 06:00 Pulse Ox 96 05/25/19 07:40 Intake & Output 05/24/19 05/24/19 05/25/19 11:59 23:59 11:59 Intake Total 380 904 Balance 380 904 Intake: IV 204 HEPARIN INFUSION - 25,000 204 units In 500 ml @ 1,000 UNITS/HR 20 mls/hr IVPB TITR [facility] Rx#:[id number] Oral 380 700 Other: Voiding Method Toilet Toilet Toilet # Unmeasured Voids Void 1 1 Bowel Movement No Active Medications Acetaminophen (Tylenol -) 650 mg PO Q6H PRN PRN Reason: PAIN LEVEL 1-5 Last Admin: 05/23/19 23:46 Dose: 650 mg Albuterol Sulfate (Ventolin 0.083% Nebulizer Soln -) 1 amp NEB QID PRN PRN Reason: SHORTNESS OF BREATH Last Admin: 05/22/19 09:21 Dose: 1 amp Allopurinol (Zyloprim -) 100 mg PO DAILY [facility] Last Admin: 05/25/19 09:03 Dose: 100 mg Amlodipine Besylate (Norvasc -) 10 mg PO DAILY [facility] Last Admin: 05/25/19 09:03 Dose: 10 mg Cholecalciferol (Vitamin D3 -) 1,000 unit PO DAILY [facility] Last Admin: 05/25/19 09:03 Dose: 1,000 unit Furosemide (Lasix -) 40 mg PO DAILY [facility] Last Admin: 05/25/19 09:03 Dose: 40 mg Guaifenesin (Robitussin -) 10 ml PO Q8H PRN PRN Reason: COUGH Last Admin: 05/22/19 20:17 Dose: 10 ml Heparin Sodium (Porcine) (Heparin -) 1,000 unit IVPUSH PRN PRN PRN Reason: Heparin Heparin Sodium/Dextrose (Heparin Infusion -) 25,000 units in 500 mls @ 20 mls/ hr IVPB TITR [facility]; Protocol Last Titration: 05/25/19 11:12 Dose: 800 units/hr, 16 mls/hr Metoprolol Tartrate (Lopressor -) 50 mg PO DAILY [facility] Last Admin: 05/25/19 09:03 Dose: 50 mg Mirtazapine (Remeron -) 15 mg PO HS [facility] Last Admin: 05/24/19 21:43 Dose: 15 mg Multivitamins/Minerals/Vitamin C (Tab-A-Vit -) 1 tab PO DAILY [facility] Last Admin: 05/25/19 09:03 Dose: 1 tab Non-Formulary Medication (Mirabegron [Myrbetriq]) 25 mg PO DAILY [facility] Spironolactone (Aldactone -) 25 mg PO DAILY [facility] Last Admin: 05/25/19 09:04 Dose: 25 mg Tramadol HCl (Ultram -) 50 mg PO Q8H PRN PRN Reason: PAIN LEVEL 6-10 Last Admin: 05/25/19 06:58 Dose: 50 mg Warfarin Sodium (Coumadin -) 5 mg PO DAILY@1800 [facility] CBC, BMP 05/24/19 09:01 05/20/19 16:20 INR, PTT INR 1.45 (0.82-1.09) H 05/25/19 06:30 Physical Examination Constitutional: Yes: No Distress, Calm and comfortable Eyes: Yes: Conjunctiva Clear Neck: Yes: Supple Cardiovascular: Yes: Pulse Irregular, Other (metallic click) Respiratory: Yes: CTA Bilaterally Gastrointestinal: Yes: Normal Bowel Sounds, Soft Edema: No Neurological: Yes: Alert Psychiatric: Yes: Alert Imaging - Results X-ray: Report Reviewed-- mild arthritis- hips EKG: Report Reviewed Assessment/Plan heparin drip till inr therapeutic Coumadin per inr-- 5 mg got yesterday and will give today Monitor--- heparin as per protocol Will follow Problem List - Problems (1) Breast mass Code(s): N63.0 - UNSPECIFIED LUMP IN UNSPECIFIED BREAST (2) Atrial fibrillation Code(s): I48.91 - UNSPECIFIED ATRIAL FIBRILLATION Qualifiers: Atrial fibrillation type: permanent Qualified Code(s): I48.21 - Permanent atrial fibrillation (3) COPD (chronic obstructive pulmonary disease) Code(s): J44.9 - CHRONIC OBSTRUCTIVE PULMONARY DISEASE, UNSPECIFIED Qualifiers: COPD type: unspecified COPD Qualified Code(s): J44.9 - Chronic obstructive pulmonary disease, unspecified (4) Cardiac pacemaker in situ Code(s): Z95.0 - PRESENCE OF CARDIAC PACEMAKER (5) HTN (hypertension) Code(s): I10 - ESSENTIAL (PRIMARY) HYPERTENSION Qualifiers: Hypertension type: essential hypertension Qualified Code(s): I10 - Essential (primary) hypertension (6) S/P aortic valve replacement with metallic valve Code(s): Z95.4 - PRESENCE OF OTHER HEART-VALVE REPLACEMENT (7) S/P mitral valve replacement with metallic valve Code(s): Z95.4 - PRESENCE OF OTHER HEART-VALVE REPLACEMENT (8) Total knee replacement status Code(s): Z96.659 - PRESENCE OF UNSPECIFIED ARTIFICIAL KNEE JOINT Qualifiers: Laterality: right Qualified Code(s): Z96.651 - Presence of right artificial knee joint
[2019-05-25] MEDS: MIRTAZAPINE 15 MG TABLET (FP) PO SCH (21:39)
--- NOTE | 2019-05-26 05:34 | PN ---
Progress Note, Physician Chief Complaint: Pt A&Ox3; discusses fall-->right leg injury. Denies chest pain or dyspnea. History of Present Illness: The patient is a 74 year old black female, with a significant PMH of Afib (on Coumadin), COPD, CVD, CKD, diastolic CHF, HTN, asthmatic bronchitis (albuterol prn), TIAs (x3), and rheumatic heart disease, who presents to the ED sent in by her PCP for admission. Patient has a right breast biopsy scheduled in 3 days (), and has stopped both her daily Coumadin and Aspirin 2 days ago. Patient has a mechanical heart valve, and as per request of Dr. Florez patient is to be admitted at this time for a heparin drip, which is to be maintained for the next 3 days until her surgery to prevent any development of clots on the valve. Patient denies any acute complaints at this time. Allergies: Penicillins Surgical History: PPM, valve replacements x2, right total knee replacement, bilateral hip replacement, laminectomy Social History: Denies EtOH, tobacco, or illicit drug use PCP: Dr. Mcdowell - Current Medication List Current Medications: Active Medications Acetaminophen (Tylenol -) 650 mg PO Q6H PRN PRN Reason: PAIN LEVEL 1-5 Last Admin: 05/23/19 23:46 Dose: 650 mg Allopurinol (Zyloprim -) 100 mg PO DAILY [facility] Last Admin: 05/25/19 09:03 Dose: 100 mg Amlodipine Besylate (Norvasc -) 10 mg PO DAILY [facility] Last Admin: 05/25/19 09:03 Dose: 10 mg Cholecalciferol (Vitamin D3 -) 1,000 unit PO DAILY [facility] Last Admin: 05/25/19 09:03 Dose: 1,000 unit Furosemide (Lasix -) 40 mg PO DAILY [facility] Last Admin: 05/25/19 09:03 Dose: 40 mg Guaifenesin (Robitussin -) 10 ml PO Q8H PRN PRN Reason: COUGH Last Admin: 05/22/19 20:17 Dose: 10 ml Heparin Sodium (Porcine) (Heparin -) 1,000 unit IVPUSH PRN PRN PRN Reason: Heparin Heparin Sodium/Dextrose (Heparin Infusion -) 25,000 units in 500 mls @ 20 mls/ hr IVPB TITR [facility]; Protocol Last Titration: 05/25/19 11:12 Dose: 800 units/hr, 16 mls/hr Metoprolol Tartrate (Lopressor -) 50 mg PO DAILY [facility] Last Admin: 05/25/19 09:03 Dose: 50 mg Mirtazapine (Remeron -) 15 mg PO HS [facility] Last Admin: 05/25/19 21:39 Dose: 15 mg Multivitamins/Minerals/Vitamin C (Tab-A-Vit -) 1 tab PO DAILY [facility] Last Admin: 05/25/19 09:03 Dose: 1 tab Non-Formulary Medication (Mirabegron [Myrbetriq]) 25 mg PO DAILY [facility] Spironolactone (Aldactone -) 25 mg PO DAILY [facility] Last Admin: 05/25/19 09:04 Dose: 25 mg Warfarin Sodium (Coumadin -) 5 mg PO DAILY@1800 [facility] - Objective Vital Signs: Vital Signs Temperature 97.9 F 05/25/19 22:00 Pulse Rate 59 L 05/25/19 22:00 Respiratory Rate 16 05/25/19 22:00 Blood Pressure 100/50 L 05/25/19 22:00 O2 Sat by Pulse Oximetry (%) 93 L 05/25/19 22:00 Constitutional: Yes: Calm Eyes: Yes: WNL HENT: Yes: WNL Neck: Yes: WNL Cardiovascular: Yes: Murmur, S1, S2 Respiratory: Yes: WNL Gastrointestinal: Yes: Soft ...Rectal Exam: Yes: Deferred Genitourinary: No: Anuria Breast(s): Yes: Other (s/p biopsy) Musculoskeletal: Yes: Muscle Pain (right LE hyperpigmented, swollen below right knee after fall), Muscle Weakness Extremities: Yes: Cool, Other Edema: Yes Edema: RLE: Trace Peripheral Pulses WNL: Yes Integumentary: Yes: Other (see "musculoskeletal") Neurological: Yes: WNL Psychiatric: Yes: WNL Labs: CBC, BMP 05/24/19 09:01 05/20/19 16:20 INR, PTT INR 1.45 (0.82-1.09) H 05/25/19 06:30 Abnormal Lab Results 05/25/19 06:30 PT with INR 16.1 H INR 1.45 H PTT (Actin FS) 83.2 H Problem List - Problems (1) Atrial fibrillation Assessment/Plan: On metoprolol for HR control (recommend bid for better 24 hour coverage, or change to succinate). On warfarin for anticoagulation (AF; metallic AoV and MV). Code(s): I48.91 - UNSPECIFIED ATRIAL FIBRILLATION Qualifiers: Atrial fibrillation type: permanent Qualified Code(s): I48.21 - Permanent atrial fibrillation (2) Chronic anticoagulation Assessment/Plan: On IV heparin until INR adequate for metallic cardiac valves and AF (on warfarin , which had been held for breast biopsy). Code(s): Z79.01 - [facility] (CURRENT) USE OF ANTICOAGULANTS (3) HTN (hypertension) Code(s): I10 - ESSENTIAL (PRIMARY) HYPERTENSION Qualifiers: Hypertension type: essential hypertension Qualified Code(s): I10 - Essential (primary) hypertension (4) S/P aortic valve replacement with metallic valve Code(s): Z95.4 - PRESENCE OF OTHER HEART-VALVE REPLACEMENT (5) S/P mitral valve replacement with metallic valve Code(s): Z95.4 - PRESENCE OF OTHER HEART-VALVE REPLACEMENT (6) Traumatic hematoma of right knee Code(s): S80.01XA - CONTUSION OF RIGHT KNEE, INITIAL ENCOUNTER Qualifiers: Encounter type: subsequent encounter Qualified Code(s): S80.01XD - Contusion of right knee, subsequent encounter (7) Cardiac pacemaker in situ Code(s): Z95.0 - PRESENCE OF CARDIAC PACEMAKER
[2019-05-26] MEDS: ACETAMINOPHEN 325 MG TABLET (FP) PO PRN (06:19)
[2019-05-26 08:15] LABS: INR 1.84 (0.82-1.09); PROTHROMBIN TIME (PATIENT) 20.4 SEC (10.2-13.0)
[2019-05-26] MEDS: HEPARIN INFUSION - 25,000 UNITS/500 ML INFUS.BAG IVPB SCH (08:51)
--- NOTE | 2019-05-26 08:58 | PN ---
Progress Note, Physician History of Present Illness: POD#3 right breast biopsy, back on heparin gtt awaiting therapeutic INR, denies chest pain or dyspnea, no bleeding. - Current Medication List Current Medications: Active Medications Acetaminophen (Tylenol -) 650 mg PO Q6H PRN PRN Reason: PAIN LEVEL 1-5 Last Admin: 05/26/19 06:19 Dose: 650 mg Allopurinol (Zyloprim -) 100 mg PO DAILY [facility] Last Admin: 05/25/19 09:03 Dose: 100 mg Amlodipine Besylate (Norvasc -) 10 mg PO DAILY [facility] Last Admin: 05/25/19 09:03 Dose: 10 mg Cholecalciferol (Vitamin D3 -) 1,000 unit PO DAILY [facility] Last Admin: 05/25/19 09:03 Dose: 1,000 unit Furosemide (Lasix -) 40 mg PO DAILY [facility] Last Admin: 05/25/19 09:03 Dose: 40 mg Guaifenesin (Robitussin -) 10 ml PO Q8H PRN PRN Reason: COUGH Last Admin: 05/22/19 20:17 Dose: 10 ml Heparin Sodium (Porcine) (Heparin -) 1,000 unit IVPUSH PRN PRN PRN Reason: Heparin Heparin Sodium/Dextrose (Heparin Infusion -) 25,000 units in 500 mls @ 20 mls/ hr IVPB TITR [facility]; Protocol Last Admin: 05/26/19 08:51 Dose: 800 units/hr, 16 mls/hr Metoprolol Tartrate (Lopressor -) 50 mg PO DAILY [facility] Last Admin: 05/25/19 09:03 Dose: 50 mg Mirtazapine (Remeron -) 15 mg PO HS [facility] Last Admin: 05/25/19 21:39 Dose: 15 mg Multivitamins/Minerals/Vitamin C (Tab-A-Vit -) 1 tab PO DAILY [facility] Last Admin: 05/25/19 09:03 Dose: 1 tab Non-Formulary Medication (Mirabegron [Myrbetriq]) 25 mg PO DAILY [facility] Spironolactone (Aldactone -) 25 mg PO DAILY [facility] Last Admin: 05/25/19 09:04 Dose: 25 mg Tramadol HCl (Ultram -) 50 mg PO Q6H PRN PRN Reason: PAIN LEVEL 6-10 Warfarin Sodium (Coumadin -) 5 mg PO DAILY@1800 [facility] - Objective Vital Signs: Vital Signs Temperature 98.5 F 05/26/19 06:00 Pulse Rate 60 05/26/19 06:00 Respiratory Rate 16 05/26/19 06:00 Blood Pressure 116/57 L 05/26/19 06:00 O2 Sat by Pulse Oximetry (%) 95 05/26/19 06:00 Constitutional: Yes: No Distress, Calm, Thin Neck: Yes: Supple Cardiovascular: Yes: Pulse Irregular, Other ([place] mechanical valve sounds) Respiratory: Yes: Regular, CTA Bilaterally Gastrointestinal: Yes: Soft, Hypoactive Bowel Sounds Edema: No Labs: CBC, BMP 05/24/19 09:01 05/20/19 16:20 INR, PTT INR 1.84 (0.82-1.09) H 05/26/19 06:55 Assessment/Plan Problem List - Problems (1) Chronic anticoagulation Code(s): Z79.01 - RETIREMENT (CURRENT) USE OF ANTICOAGULANTS (2) Breast mass Code(s): N63.0 - UNSPECIFIED LUMP IN UNSPECIFIED BREAST (3) Atrial fibrillation Code(s): I48.91 - UNSPECIFIED ATRIAL FIBRILLATION Qualifiers: Atrial fibrillation type: permanent Qualified Code(s): I48.21 - Permanent atrial fibrillation (4) Cardiac pacemaker in situ Code(s): Z95.0 - PRESENCE OF CARDIAC PACEMAKER (5) Chronic kidney disease (CKD) Code(s): N18.9 - CHRONIC KIDNEY DISEASE, UNSPECIFIED Qualifiers: Chronic kidney disease stage: stage 3 (moderate) Qualified Code(s): N18.3 - Chronic kidney disease, stage 3 (moderate) (6) Diastolic dysfunction without heart failure Code(s): I51.9 - HEART DISEASE, UNSPECIFIED (7) HTN (hypertension) Code(s): I10 - ESSENTIAL (PRIMARY) HYPERTENSION Qualifiers: Hypertension type: essential hypertension Qualified Code(s): I10 - Essential (primary) hypertension (9) Rheumatic heart disease Code(s): I09.9 - RHEUMATIC HEART DISEASE, UNSPECIFIED (10) S/P aortic valve replacement with metallic valve Code(s): Z95.4 - PRESENCE OF OTHER HEART-VALVE REPLACEMENT (11) S/P mitral valve replacement with metallic valve Code(s): Z95.4 - PRESENCE OF OTHER HEART-VALVE REPLACEMENT Assessment/Plan 03/14/2019 Echo: Normal LV and RV size and fxn, mod ALICIA, mech MV and AV, tricuspid annular ring with mod TR RVSP 41 mmHg 1. POD#3 right breast biopsy 2. Rheumatic heart disease s/p mech AVR and MVR with subtherapeutic INR 3. Afib sss s/p PPM last interrogation Aug 05, 2018 4. TIA 5. HTN P:1. Continue bridging heparin gtt and coumadin for target INR 3.0-3.5 as post- op hemostasis assured 2. Continue Aldactone 25 qd, Lasix 40 qd, Norvasc 10 qd, metoprolol XL 50 qd 3. Routine f/u with Dr. Florez upon d/c
[2019-05-26] MEDS: amLODIPine BESYLATE 10 MG TABLET (FP) PO SCH (09:43)
[2019-05-26] MEDS: CHOLECALCIFEROL (VIT D3) 1,000 UNIT (25 MCG) TABLET PO SCH (09:43)
[2019-05-26] MEDS: SPIRONOLACTONE 25 MG TABLET (FP) PO SCH (09:43)
[2019-05-26] MEDS: ALLOPURINOL 100 MG TABLET (FP) PO SCH (09:43)
[2019-05-26] MEDS: FUROSEMIDE 40 MG TABLET (FP) PO SCH (09:43)
[2019-05-26] MEDS: MULTIVITAMINS (DAILY MVI) TABLET (FP) PO SCH (09:43)
[2019-05-26] MEDS: METOPROLOL TARTRATE 50 MG TABLET (FP) PO SCH (09:46)
--- NOTE | 2019-05-26 12:12 | PN ---
Progress Note (short form) - Note Progress Note: Pt seen/ examined comfortable Vital Signs Temp 97.7 F 05/26/19 10:00 Pulse 61 05/26/19 10:00 Resp 189 H 05/26/19 10:00 BP 106/43 L 05/26/19 10:00 Pulse Ox 94 L 05/26/19 10:00 Intake & Output 05/25/19 05/26/19 05/26/19 23:59 11:59 23:59 Intake Total 400 192 Balance 400 192 Intake: IVPB 192 Oral 400 Other: Voiding Method Toilet Toilet # Unmeasured Voids Void 1 Active Medications Acetaminophen (Tylenol -) 650 mg PO Q6H PRN PRN Reason: PAIN LEVEL 1-5 Last Admin: 05/26/19 06:19 Dose: 650 mg Allopurinol (Zyloprim -) 100 mg PO DAILY [facility] Last Admin: 05/26/19 09:43 Dose: 100 mg Amlodipine Besylate (Norvasc -) 10 mg PO DAILY [facility] Last Admin: 05/26/19 09:43 Dose: 10 mg Cholecalciferol (Vitamin D3 -) 1,000 unit PO DAILY [facility] Last Admin: 05/26/19 09:43 Dose: 1,000 unit Furosemide (Lasix -) 40 mg PO DAILY [facility] Last Admin: 05/26/19 09:43 Dose: 40 mg Guaifenesin (Robitussin -) 10 ml PO Q8H PRN PRN Reason: COUGH Last Admin: 05/22/19 20:17 Dose: 10 ml Heparin Sodium (Porcine) (Heparin -) 1,000 unit IVPUSH PRN PRN PRN Reason: Heparin Heparin Sodium/Dextrose (Heparin Infusion -) 25,000 units in 500 mls @ 20 mls/ hr IVPB TITR [facility]; Protocol Last Admin: 05/26/19 08:51 Dose: 800 units/hr, 16 mls/hr Metoprolol Succinate (Toprol Xl -) 50 mg PO DAILY [facility] Last Admin: 05/26/19 10:08 Dose: Not Given Mirtazapine (Remeron -) 15 mg PO HS [facility] Last Admin: 05/25/19 21:39 Dose: 15 mg Multivitamins/Minerals/Vitamin C (Tab-A-Vit -) 1 tab PO DAILY [facility] Last Admin: 05/26/19 09:43 Dose: 1 tab Non-Formulary Medication (Mirabegron [Myrbetriq]) 25 mg PO DAILY [facility] Spironolactone (Aldactone -) 25 mg PO DAILY [facility] Last Admin: 05/26/19 09:43 Dose: 25 mg Tramadol HCl (Ultram -) 50 mg PO Q6H PRN PRN Reason: PAIN LEVEL 6-10 Warfarin Sodium (Coumadin -) 5 mg PO DAILY@1800 [facility] Warfarin Sodium (Coumadin -) 2.5 mg PO ONCE@1800 ONE Stop: 05/26/19 18:01 INR, PTT INR 1.84 (0.82-1.09) H 05/26/19 06:55 Physical Examination Constitutional: Yes: No Distress, Calm and comfortable Eyes: Yes: Conjunctiva Clear Neck: Yes: Supple Cardiovascular: Yes: Pulse Irregular, Other (metallic click) Respiratory: Yes: CTA Bilaterally Gastrointestinal: Yes: Normal Bowel Sounds, Soft Edema: No Neurological: Yes: Alert Psychiatric: Yes: Alert Imaging - Results X-ray: Report Reviewed-- mild arthritis- hips EKG: Report Reviewed Assessment/Plan heparin drip till inr therapeutic Coumadin per inr-- Monitor--- heparin as per protocol cardiology f/u noted pathology pending Will follow Problem List - Problems (1) Breast mass Code(s): N63.0 - UNSPECIFIED LUMP IN UNSPECIFIED BREAST (2) Atrial fibrillation Code(s): I48.91 - UNSPECIFIED ATRIAL FIBRILLATION Qualifiers: Atrial fibrillation type: permanent Qualified Code(s): I48.21 - Permanent atrial fibrillation (3) COPD (chronic obstructive pulmonary disease) Code(s): J44.9 - CHRONIC OBSTRUCTIVE PULMONARY DISEASE, UNSPECIFIED Qualifiers: COPD type: unspecified COPD Qualified Code(s): J44.9 - Chronic obstructive pulmonary disease, unspecified (4) Cardiac pacemaker in situ Code(s): Z95.0 - PRESENCE OF CARDIAC PACEMAKER (5) HTN (hypertension) Code(s): I10 - ESSENTIAL (PRIMARY) HYPERTENSION Qualifiers: Hypertension type: essential hypertension Qualified Code(s): I10 - Essential (primary) hypertension (6) S/P aortic valve replacement with metallic valve Code(s): Z95.4 - PRESENCE OF OTHER HEART-VALVE REPLACEMENT (7) S/P mitral valve replacement with metallic valve Code(s): Z95.4 - PRESENCE OF OTHER HEART-VALVE REPLACEMENT (8) Total knee replacement status Code(s): Z96.659 - PRESENCE OF UNSPECIFIED ARTIFICIAL KNEE JOINT Qualifiers: Laterality: right Qualified Code(s): Z96.651 - Presence of right artificial knee joint Problem List - Problems (1) Breast mass Code(s): N63.0 - UNSPECIFIED LUMP IN UNSPECIFIED BREAST (2) Atrial fibrillation Code(s): I48.91 - UNSPECIFIED ATRIAL FIBRILLATION Qualifiers: Atrial fibrillation type: permanent Qualified Code(s): I48.21 - Permanent atrial fibrillation (3) COPD (chronic obstructive pulmonary disease) Code(s): J44.9 - CHRONIC OBSTRUCTIVE PULMONARY DISEASE, UNSPECIFIED Qualifiers: COPD type: unspecified COPD Qualified Code(s): J44.9 - Chronic obstructive pulmonary disease, unspecified (4) Cardiac pacemaker in situ Code(s): Z95.0 - PRESENCE OF CARDIAC PACEMAKER (5) HTN (hypertension) Code(s): I10 - ESSENTIAL (PRIMARY) HYPERTENSION Qualifiers: Hypertension type: essential hypertension Qualified Code(s): I10 - Essential (primary) hypertension (6) S/P aortic valve replacement with metallic valve Code(s): Z95.4 - PRESENCE OF OTHER HEART-VALVE REPLACEMENT (7) S/P mitral valve replacement with metallic valve Code(s): Z95.4 - PRESENCE OF OTHER HEART-VALVE REPLACEMENT (8) Total knee replacement status Code(s): Z96.659 - PRESENCE OF UNSPECIFIED ARTIFICIAL KNEE JOINT Qualifiers: Laterality: right Qualified Code(s): Z96.651 - Presence of right artificial knee joint
--- NOTE | 2019-05-26 14:23 | PATH ---
Surgical Pathology Report Patient Name: VERNON VALE Med. Rec. #: [id number] /Age/Gender: 1945 (Age: 74) / F Account: [id number] Location: [facility] MED-[facility] Taken: 05/23/2019 Received: 05/23/2019 Reported: 05/26/2019 Physicians: Donna Marie M.D. Specimen(s) Received RIGHT BREAST CORE BIOPSY 12N5 Clinical History Nonpalpable lesion Ultrasound findings: Cystic lesion Final Diagnosis BREAST, RIGHT, 12:00 5 CM FN, CORE BIOPSY: BENIGN BREAST TISSUE SHOWING FIBROUS CYST WALL WITH HISTIOCYTIC REACTION, CONSISTENT WITH CYST RUPTURE AND REACTION. Electronically Signed Leti Bradley M.D. Gross Description Received in formalin labeled "right breast 12:00, 5 cmfn," is a 1.3 x 1.0 x 0.1 cm aggregate of multiple epstein-yellow, irregular to cylindrical portions of fibroadipose tissue admixed with necrotic material. The formalin is filtered and the specimen is entirely submitted in one cassette. Time to formalin fixation: < 1 minute Total formalin fixation time: Approximately 6 hours. /05/23/2019 saudi05/23/2019
--- NOTE | 2019-05-26 16:35 | OP ---
DATE OF OPERATION: 05/20/2019 PREOPERATIVE DIAGNOSIS: Right breast complex mass 12 o'clock, 5 cm from the nipple. POSTOPERATIVE DIAGNOSIS: Right breast complex mass 12 o'clock, 5 cm from the nipple. PROCEDURE: Right ultrasound-guided core biopsy with clip placement. ANESTHESIA: Local. ATTENDING SURGEON: Rahel Rae MD ESTIMATED BLOOD LOSS: Minimal. COMPLICATIONS: None. DESCRIPTION OF PROCEDURE: Patient was made aware of the risks and benefits of the procedure and consented. She was placed in a supine position. Under sterile conditions, 2% lidocaine for local anesthesia, a small lupe was made in the skin. Using a 13-gauge suction biopsy device via lateral approach under ultrasound guidance, multiple cores were obtained and submitted to Pathology. Likewise, under ultrasound guidance, a U-shaped clip was placed into the biopsy region. Well tolerated by patient. Steri-Strips and a sterile bandage were applied. We will contact her with results. RAHEL RAE M.D. [id number]
[2019-05-26] MEDS: traMADol HCL 50 MG TABLET PO PRN ×2 (17:00→23:15)
[2019-05-26] MEDS ORDERED: WARFARIN NA 2.5 MG TABLET (FP) PO ONE (18:00)
[2019-05-26] MEDS: WARFARIN NA 5 MG TABLET (UD) PO SCH (18:51)
[2019-05-26] MEDS: MIRTAZAPINE 15 MG TABLET (FP) PO SCH (21:18)
[2019-05-27 08:20] LABS: INR 2.2 (0.82-1.09); PROTHROMBIN TIME (PATIENT) 24.3 SEC (10.2-13.0)
[2019-05-27] MEDS: amLODIPine BESYLATE 10 MG TABLET (FP) PO SCH (09:03)
[2019-05-27] MEDS: SPIRONOLACTONE 25 MG TABLET (FP) PO SCH (09:03)
[2019-05-27] MEDS: CHOLECALCIFEROL (VIT D3) 1,000 UNIT (25 MCG) TABLET PO SCH (09:03)
[2019-05-27] MEDS: ACETAMINOPHEN 325 MG TABLET (FP) PO PRN ×2 (09:03→20:32)
[2019-05-27] MEDS: MULTIVITAMINS (DAILY MVI) TABLET (FP) PO SCH (09:03)
[2019-05-27] MEDS: guaiFENesin 200 MG/10 ML 10 ML UNIT-DOSE CUPS PO PRN (09:03)
[2019-05-27] MEDS: ASPIRIN 81 MG CHEWABLE TABLETS PO SCH (09:03)
[2019-05-27] MEDS: FUROSEMIDE 40 MG TABLET (FP) PO SCH (09:03)
[2019-05-27] MEDS: ALLOPURINOL 100 MG TABLET (FP) PO SCH (09:03)
[2019-05-27] MEDS: traMADol HCL 50 MG TABLET PO PRN (09:04)
--- NOTE | 2019-05-27 10:24 | PN ---
Progress Note, Physician Chief Complaint: Events noted Not in distress History of Present Illness: Patient was seen and examined. Awake and alert. Chart was reviewed Denies chest pain, SOB or palpitations - Current Medication List Current Medications: Active Medications Acetaminophen (Tylenol -) 650 mg PO Q6H PRN PRN Reason: PAIN LEVEL 1-5 Last Admin: 05/27/19 09:03 Dose: 650 mg Allopurinol (Zyloprim -) 100 mg PO DAILY [facility] Last Admin: 05/27/19 09:03 Dose: 100 mg Amlodipine Besylate (Norvasc -) 10 mg PO DAILY [facility] Last Admin: 05/27/19 09:03 Dose: 10 mg Aspirin (Asa -) 81 mg PO DAILY [facility] Last Admin: 05/27/19 09:03 Dose: 81 mg Cholecalciferol (Vitamin D3 -) 1,000 unit PO DAILY [facility] Last Admin: 05/27/19 09:03 Dose: 1,000 unit Furosemide (Lasix -) 40 mg PO DAILY [facility] Last Admin: 05/27/19 09:03 Dose: 40 mg Guaifenesin (Robitussin -) 10 ml PO Q8H PRN PRN Reason: COUGH Last Admin: 05/27/19 09:03 Dose: 10 ml Heparin Sodium (Porcine) (Heparin -) 1,000 unit IVPUSH PRN PRN PRN Reason: Heparin Heparin Sodium/Dextrose (Heparin Infusion -) 25,000 units in 500 mls @ 20 mls/ hr IVPB TITR [facility]; Protocol Last Admin: 05/26/19 08:51 Dose: 800 units/hr, 16 mls/hr Metoprolol Succinate (Toprol Xl -) 50 mg PO DAILY [facility] Last Admin: 05/27/19 09:03 Dose: 50 mg Mirtazapine (Remeron -) 15 mg PO HS [facility] Last Admin: 05/26/19 21:18 Dose: 15 mg Multivitamins/Minerals/Vitamin C (Tab-A-Vit -) 1 tab PO DAILY [facility] Last Admin: 05/27/19 09:03 Dose: 1 tab Non-Formulary Medication (Mirabegron [Myrbetriq]) 25 mg PO DAILY [facility] Spironolactone (Aldactone -) 25 mg PO DAILY [facility] Last Admin: 05/27/19 09:03 Dose: 25 mg Tramadol HCl (Ultram -) 50 mg PO Q6H PRN PRN Reason: PAIN LEVEL 6-10 Last Admin: 05/27/19 09:04 Dose: 50 mg Warfarin Sodium (Coumadin -) 5 mg PO DAILY@1800 [facility] Last Admin: 05/26/19 18:51 Dose: 5 mg - Objective Vital Signs: Vital Signs Temperature 97.9 F 05/27/19 06:00 Pulse Rate 59 L 05/27/19 06:00 Respiratory Rate 18 05/27/19 08:29 Blood Pressure 140/64 05/27/19 06:00 O2 Sat by Pulse Oximetry (%) 97 05/27/19 08:29 Eyes: Yes: PERRL HENT: Yes: Atraumatic Neck: Yes: Supple Cardiovascular: Yes: Pulse Irregular, S1, S2, Other (Mechanical click) Respiratory: Yes: CTA Bilaterally Gastrointestinal: Yes: Normal Bowel Sounds, Soft. No: Tenderness Edema: No Additional Findings/Remarks: - Review of Systems Constitutional: denies Fever, Weakness. denies: Chills Cardiovascular: (+) Chest Pain, (-) Shortness of Breath. denies: Palpitations Respiratory: denies SOB. denies: Cough, Hemoptysis, Orthopnea, PND Gastrointestinal: denies: Abdominal Pain, Constipation, Diarrhea, Melena, Nausea , Rectal Bleeding, Vomiting Genitourinary: denies: Dysuria, Hematuria Musculoskeletal: denies: Back Pain, Joint Pain Neurological: denies: Dizziness, Headache, Seizure, Syncope Labs: INR, PTT INR 2.20 (0.82-1.09) H 05/27/19 07:00 Problem List - Problems (1) Breast mass Code(s): N63.0 - UNSPECIFIED LUMP IN UNSPECIFIED BREAST (2) Atrial fibrillation Code(s): I48.91 - UNSPECIFIED ATRIAL FIBRILLATION Qualifiers: Atrial fibrillation type: permanent Qualified Code(s): I48.21 - Permanent atrial fibrillation (3) COPD (chronic obstructive pulmonary disease) Code(s): J44.9 - CHRONIC OBSTRUCTIVE PULMONARY DISEASE, UNSPECIFIED Qualifiers: COPD type: unspecified COPD Qualified Code(s): J44.9 - Chronic obstructive pulmonary disease, unspecified (4) Cardiac pacemaker in situ Code(s): Z95.0 - PRESENCE OF CARDIAC PACEMAKER (5) Cerebrovascular disease Code(s): I67.9 - CEREBROVASCULAR DISEASE, UNSPECIFIED (6) Chronic kidney disease (CKD) Code(s): N18.9 - CHRONIC KIDNEY DISEASE, UNSPECIFIED Qualifiers: Chronic kidney disease stage: stage 3 (moderate) Qualified Code(s): N18.3 - Chronic kidney disease, stage 3 (moderate) (7) Diastolic dysfunction without heart failure Code(s): I51.9 - HEART DISEASE, UNSPECIFIED (8) HTN (hypertension) Code(s): I10 - ESSENTIAL (PRIMARY) HYPERTENSION Qualifiers: Hypertension type: essential hypertension Qualified Code(s): I10 - Essential (primary) hypertension (9) Rheumatic heart disease Code(s): I09.9 - RHEUMATIC HEART DISEASE, UNSPECIFIED (10) S/P aortic valve replacement with metallic valve Code(s): Z95.4 - PRESENCE OF OTHER HEART-VALVE REPLACEMENT (11) S/P mitral valve replacement with metallic valve Code(s): Z95.4 - PRESENCE OF OTHER HEART-VALVE REPLACEMENT Assessment/Plan 1. Post right breast biopsy 2. Rheumatic heart disease s/p mechanical AVR and MVR 3. Persistent AF 4. Sick sinus syndrome, PPM 5. TIA 6. HTN PLAN: 1. Continue bridging with Heparin drip and Coumadin for target INR 3.0-3.5 2. Continue Aldactone 25 mg QD, Lasix 40 mg QD, Norvasc 10 mg QD and Metoprolol XL 50 mg QD 3. Follow up with Dr. Gina Florez [facility] as outpatient Vamshi López MD
[2019-05-27] MEDS: WARFARIN NA 5 MG TABLET (UD) PO SCH (17:35)
[2019-05-27] MEDS ORDERED: WARFARIN NA 2.5 MG TABLET (FP) PO ONE (18:00)
--- NOTE | 2019-05-27 19:25 | PN ---
Progress Note (short form) - Note Progress Note: pt seen/ examined comfortable no new issues Vital Signs Temp 97.8 F 05/27/19 14:09 Pulse 60 05/27/19 14:09 Resp 16 05/27/19 14:09 BP 98/53 L 05/27/19 14:09 Pulse Ox 96 05/27/19 14:09 Intake & Output 05/26/19 05/27/19 05/27/19 23:59 11:59 23:59 Intake Total 350 572 400 Balance 350 572 400 Weight 190 lb Intake: IVPB 192 Oral 350 380 400 Other: Voiding Method Toilet Toilet Height 5 ft 6 in Body Mass Index (BMI) 30.7 Active Medications Acetaminophen (Tylenol -) 650 mg PO Q6H PRN PRN Reason: PAIN LEVEL 1-5 Last Admin: 05/27/19 09:03 Dose: 650 mg Allopurinol (Zyloprim -) 100 mg PO DAILY [facility] Last Admin: 05/27/19 09:03 Dose: 100 mg Amlodipine Besylate (Norvasc -) 10 mg PO DAILY [facility] Last Admin: 05/27/19 09:03 Dose: 10 mg Aspirin (Asa -) 81 mg PO DAILY [facility] Last Admin: 05/27/19 09:03 Dose: 81 mg Cholecalciferol (Vitamin D3 -) 1,000 unit PO DAILY [facility] Last Admin: 05/27/19 09:03 Dose: 1,000 unit Furosemide (Lasix -) 40 mg PO DAILY [facility] Last Admin: 05/27/19 09:03 Dose: 40 mg Guaifenesin (Robitussin -) 10 ml PO Q8H PRN PRN Reason: COUGH Last Admin: 05/27/19 09:03 Dose: 10 ml Heparin Sodium (Porcine) (Heparin -) 1,000 unit IVPUSH PRN PRN PRN Reason: Heparin Heparin Sodium/Dextrose (Heparin Infusion -) 25,000 units in 500 mls @ 20 mls/ hr IVPB TITR [facility]; Protocol Last Admin: 05/26/19 08:51 Dose: 800 units/hr, 16 mls/hr Metoprolol Succinate (Toprol Xl -) 50 mg PO DAILY [facility] Last Admin: 05/27/19 09:03 Dose: 50 mg Mirtazapine (Remeron -) 15 mg PO HS [facility] Last Admin: 05/26/19 21:18 Dose: 15 mg Multivitamins/Minerals/Vitamin C (Tab-A-Vit -) 1 tab PO DAILY [facility] Last Admin: 05/27/19 09:03 Dose: 1 tab Non-Formulary Medication (Mirabegron [Myrbetriq]) 25 mg PO DAILY [facility] Spironolactone (Aldactone -) 25 mg PO DAILY [facility] Last Admin: 05/27/19 09:03 Dose: 25 mg Tramadol HCl (Ultram -) 50 mg PO Q6H PRN PRN Reason: PAIN LEVEL 6-10 Last Admin: 05/27/19 09:04 Dose: 50 mg Warfarin Sodium (Coumadin -) 5 mg PO DAILY@1800 [facility] Last Admin: 05/27/19 17:35 Dose: 5 mg CBC, BMP 05/24/19 09:01 05/20/19 16:20 INR, PTT INR 2.20 (0.82-1.09) H 05/27/19 07:00 Physical Examination Constitutional: Yes: No Distress, Calm and comfortable Eyes: Yes: Conjunctiva Clear Neck: Yes: Supple Cardiovascular: Yes: Pulse Irregular, Other (metallic click) Respiratory: Yes: CTA Bilaterally Gastrointestinal: Yes: Normal Bowel Sounds, Soft Edema: No Neurological: Yes: Alert Psychiatric: Yes: Alert Imaging - Results X-ray: Report Reviewed-- mild arthritis- hips EKG: Report Reviewed Assessment/Plan heparin drip till inr therapeutic-- goal around 3 Coumadin per inr-- coumadin 7.5 mg today Monitor--- heparin as per protocol cardiology f/u noted pathology -- Benign Will follow Problem List - Problems (1) Breast mass Code(s): N63.0 - UNSPECIFIED LUMP IN UNSPECIFIED BREAST (2) Atrial fibrillation Code(s): I48.91 - UNSPECIFIED ATRIAL FIBRILLATION Qualifiers: Atrial fibrillation type: permanent Qualified Code(s): I48.21 - Permanent atrial fibrillation (3) COPD (chronic obstructive pulmonary disease) Code(s): J44.9 - CHRONIC OBSTRUCTIVE PULMONARY DISEASE, UNSPECIFIED Qualifiers: COPD type: unspecified COPD Qualified Code(s): J44.9 - Chronic obstructive pulmonary disease, unspecified (4) Cardiac pacemaker in situ Code(s): Z95.0 - PRESENCE OF CARDIAC PACEMAKER (5) HTN (hypertension) Code(s): I10 - ESSENTIAL (PRIMARY) HYPERTENSION Qualifiers: Hypertension type: essential hypertension Qualified Code(s): I10 - Essential (primary) hypertension (6) S/P aortic valve replacement with metallic valve Code(s): Z95.4 - PRESENCE OF OTHER HEART-VALVE REPLACEMENT (7) S/P mitral valve replacement with metallic valve Code(s): Z95.4 - PRESENCE OF OTHER HEART-VALVE REPLACEMENT (8) Total knee replacement status Code(s): Z96.659 - PRESENCE OF UNSPECIFIED ARTIFICIAL KNEE JOINT Qualifiers: Laterality: right Qualified Code(s): Z96.651 - Presence of right artificial knee joint
[2019-05-27] MEDS: MIRTAZAPINE 15 MG TABLET (FP) PO SCH (21:29)
[2019-05-28] MEDS: traMADol HCL 50 MG TABLET PO PRN (06:26)
[2019-05-28 08:02] LABS: INR 2.83 (0.82-1.09)
--- NOTE | 2019-05-28 09:04 | PN ---
Progress Note, Physician History of Present Illness: POD#5 right breast biopsy->benign, achieving therapeutic INR, denies chest pain or dyspnea, no bleeding. - Current Medication List Current Medications: Active Medications Acetaminophen (Tylenol -) 650 mg PO Q6H PRN PRN Reason: PAIN LEVEL 1-5 Last Admin: 05/27/19 20:32 Dose: 650 mg Allopurinol (Zyloprim -) 100 mg PO DAILY [facility] Last Admin: 05/27/19 09:03 Dose: 100 mg Amlodipine Besylate (Norvasc -) 10 mg PO DAILY [facility] Last Admin: 05/27/19 09:03 Dose: 10 mg Aspirin (Asa -) 81 mg PO DAILY [facility] Last Admin: 05/27/19 09:03 Dose: 81 mg Cholecalciferol (Vitamin D3 -) 1,000 unit PO DAILY [facility] Last Admin: 05/27/19 09:03 Dose: 1,000 unit Furosemide (Lasix -) 40 mg PO DAILY [facility] Last Admin: 05/27/19 09:03 Dose: 40 mg Guaifenesin (Robitussin -) 10 ml PO Q8H PRN PRN Reason: COUGH Last Admin: 05/27/19 09:03 Dose: 10 ml Heparin Sodium (Porcine) (Heparin -) 1,000 unit IVPUSH PRN PRN PRN Reason: Heparin Heparin Sodium/Dextrose (Heparin Infusion -) 25,000 units in 500 mls @ 20 mls/ hr IVPB TITR [facility]; Protocol Last Admin: 05/26/19 08:51 Dose: 800 units/hr, 16 mls/hr Metoprolol Succinate (Toprol Xl -) 50 mg PO DAILY [facility] Last Admin: 05/27/19 09:03 Dose: 50 mg Mirtazapine (Remeron -) 15 mg PO HS [facility] Last Admin: 05/27/19 21:29 Dose: 15 mg Multivitamins/Minerals/Vitamin C (Tab-A-Vit -) 1 tab PO DAILY [facility] Last Admin: 05/27/19 09:03 Dose: 1 tab Non-Formulary Medication (Mirabegron [Myrbetriq]) 25 mg PO DAILY [facility] Spironolactone (Aldactone -) 25 mg PO DAILY [facility] Last Admin: 05/27/19 09:03 Dose: 25 mg Tramadol HCl (Ultram -) 50 mg PO Q6H PRN PRN Reason: PAIN LEVEL 6-10 Last Admin: 05/28/19 06:26 Dose: 50 mg Warfarin Sodium (Coumadin -) 5 mg PO DAILY@1800 [facility] Last Admin: 05/27/19 17:35 Dose: 5 mg - Objective Vital Signs: Vital Signs Temperature 98.7 F 05/28/19 06:00 Pulse Rate 51 L 05/28/19 06:00 Respiratory Rate 18 05/28/19 08:07 Blood Pressure 103/51 L 05/28/19 06:00 O2 Sat by Pulse Oximetry (%) 94 L 05/28/19 08:07 Constitutional: Yes: No Distress, Calm, Thin Neck: Yes: Supple Cardiovascular: Yes: Pulse Irregular, Other ([place] mechanical valve sounds) Respiratory: Yes: Regular, CTA Bilaterally Gastrointestinal: Yes: Normal Bowel Sounds, Soft Edema: No Labs: CBC, BMP 05/24/19 09:01 05/20/19 16:20 INR, PTT INR 2.83 (0.82-1.09) H 05/28/19 07:05 Assessment/Plan Problem List - Problems (1) Chronic anticoagulation 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 (2) Breast mass Code(s): N63.0 - UNSPECIFIED LUMP IN UNSPECIFIED BREAST (3) Atrial fibrillation Code(s): I48.91 - UNSPECIFIED ATRIAL FIBRILLATION Qualifiers: Atrial fibrillation type: permanent Qualified Code(s): I48.21 - Permanent atrial fibrillation (4) Cardiac pacemaker in situ Code(s): Z95.0 - PRESENCE OF CARDIAC PACEMAKER (5) Chronic kidney disease (CKD) Code(s): N18.9 - CHRONIC KIDNEY DISEASE, UNSPECIFIED Qualifiers: Chronic kidney disease stage: stage 3 (moderate) Qualified Code(s): N18.3 - Chronic kidney disease, stage 3 (moderate) (6) Diastolic dysfunction without heart failure Code(s): I51.9 - HEART DISEASE, UNSPECIFIED (7) HTN (hypertension) Code(s): I10 - ESSENTIAL (PRIMARY) HYPERTENSION Qualifiers: Hypertension type: essential hypertension Qualified Code(s): I10 - Essential (primary) hypertension (9) Rheumatic heart disease Code(s): I09.9 - RHEUMATIC HEART DISEASE, UNSPECIFIED (10) S/P aortic valve replacement with metallic valve Code(s): Z95.4 - PRESENCE OF OTHER HEART-VALVE REPLACEMENT (11) S/P mitral valve replacement with metallic valve Code(s): Z95.4 - PRESENCE OF OTHER HEART-VALVE REPLACEMENT Assessment/Plan 03/14/2019 Echo: Normal LV and RV size and fxn, mod ALICIA, mech MV and AV, tricuspid annular ring with mod TR RVSP 41 mmHg 1. POD#5 right breast biopsy->benign fibrous cyst rupture and reaction 2. Rheumatic heart disease s/p mechanical AVR and MVR 3. Persistent AF 4. Sick sinus syndrome, PPM 5. TIA 6. HTN PLAN: 1. Continue Coumadin for target INR 3.0-3.5, also on ASA 81 qd as she previously developed stroke on therapeutic INR 2. Continue Aldactone 25 mg QD, Lasix 40 mg QD, Norvasc 10 mg QD, and Metoprolol XL 50 mg QD 3. Follow up with Dr. Gina Florez [facility] as outpatient [phone]
[2019-05-28] MEDS: SPIRONOLACTONE 25 MG TABLET (FP) PO SCH (09:29)
[2019-05-28] MEDS: amLODIPine BESYLATE 10 MG TABLET (FP) PO SCH (09:29)
[2019-05-28] MEDS: FUROSEMIDE 40 MG TABLET (FP) PO SCH (09:29)
[2019-05-28] MEDS: ASPIRIN 81 MG CHEWABLE TABLETS PO SCH (09:29)
[2019-05-28] MEDS: MULTIVITAMINS (DAILY MVI) TABLET (FP) PO SCH (09:29)
[2019-05-28] MEDS: ALLOPURINOL 100 MG TABLET (FP) PO SCH (09:30)
[2019-05-28] MEDS: CHOLECALCIFEROL (VIT D3) 1,000 UNIT (25 MCG) TABLET PO SCH (09:30)
--- NOTE | 2019-05-28 10:19 | DS ---
Physical Examination Vital Signs: Vital Signs Temperature 98.7 F 05/28/19 06:00 Pulse Rate 51 L 05/28/19 06:00 Respiratory Rate 18 05/28/19 08:07 Blood Pressure 103/51 L 05/28/19 06:00 O2 Sat by Pulse Oximetry (%) 94 L 05/28/19 08:07 Labs: CBC, BMP 05/24/19 09:01 05/20/19 16:20 Discharge Summary Problems reviewed: Yes Reason For Visit: "MY DR SENT ME HERE TO HAVE HEPARIN" Current Active Problems Breast mass (Acute) Hospital Course: Admitted for Bridging -- Heparin for Breast Biopsy Biopsy -ve stable for d/c now as INR - Therapeutic Close monitoring meds reconcilled d/w RN also Plan of Treatment: Follow up with DR. Sorto in 6 months. Allow steri strips to fall off in shower. You may trim the ends as they curl. Follow up with cardiology within the next two weeks. Continue Coumadin 4mg daily Follow up wi Dr. Mcdowell in 2-3 weeks - Instructions Referrals: Gina Florez MD [Staff Physician] - 2 Weeks Mary York MD [Staff Physician] - Disposition: HOME - Home Medications Comprehensive Discharge Medication List: Ambulatory Orders Aspirin [Aspirin EC] 81 mg PO DAILY #0 06/11/13 Warfarin Sodium 4 mg PO DAILY 06/11/13 Allopurinol [Zyloprim -] 100 mg PO DAILY 12/15/15 Cholecalciferol (Vitamin D3) [Vitamin D3] 1,000 mg PO DAILY 12/15/15 Multivit with Iron,Minerals [Compete] 1 each PO DAILY 12/15/15 Spironolactone [Aldactone] 25 mg PO DAILY 12/15/15 Furosemide [Lasix -] 40 mg PO DAILY tablet 12/18/16 Mirtazapine [Remeron -] 15 mg PO HS tablet 12/18/16 Amlodipine Besylate [Norvasc -] 10 mg PO DAILY 12/15/18 Mirabegron [Myrbetriq] 25 mg PO DAILY 12/15/18 Albuterol 0.083% Nebulizer Breanna [Ventolin 0.083% Nebulizer Soln -] 1 neb NEB QID PRN 05/20/19 Acetaminophen [Tylenol .Regular Strength -] 650 mg PO Q6H PRN tablet 05/28/19 Guaifenesin [Robitussin -] 10 ml PO Q8H PRN cup 05/28/19 Metoprolol Succinate [Toprol XL -] 50 mg PO DAILY #30 tab.sr.24h 05/28/19 traMADol HCL [Ultram -] 50 mg PO Q6H PRN #30 tablet MDD 2 05/28/19
[2019-05-28 10:46] VITALS: BP 113/60; PULSE 75; TEMP 97.9
== END 2019-05-28 11:09 | disposition home or self-care (01) | DRG 948 ==
LOC: FER 15:49 → FM/S 17:03
PROVIDERS: ADMIT Internal Medicine; ATTEND Internal Medicine
PROC: 0HBT3ZX Excision of Right Breast, Percutaneous Approach, Diagnostic (ICD-10-PCS; principal; 2019-05-20)
DX: R79.1 Abnormal coagulation profile (principal); I48.21 Permanent atrial fibrillation; J44.9 Chronic obstructive pulmonary disease, unspecified; Z95.0 Presence of cardiac pacemaker; N18.3 Chronic kidney disease, stage 3 (moderate); I10 Essential (primary) hypertension; I09.9 Rheumatic heart disease, unspecified; Z95.4 Presence of other heart-valve replacement; N63.0 Unspecified lump in unspecified breast
CPT/HCPCS: 19083; 36415; 71045-TC-FY; 73523-TC-FY; 80053; 81003; 81015; 82550; 84484; 85025; 85027; 85610; 85730; 87899; 88305-TC; 93005; 94640; 99283-25; A4648; J1644